=== PATIENT | male | born 1965 | race Caucasian/White ===

== ENCOUNTER 2020-06-16 14:22 | Outpatient (REF) | payer MEDICARE, MEDICAID, SELFPAY ==
[2020-06-16 17:02] LABS: Estimated Average Glucose 163 mg/dL; Hemoglobin A1c % 7.3 %
[2020-06-16 17:20] LABS: Prostate Specific Antigen Scr 0.65 ng/mL (<0.05-4.0)
== END 2020-06-16 14:23 | disposition home or self-care (01) ==
LOC: HO.HMGCLDS 14:22
PROVIDERS: PCP Nurse Practitioner Family; Visit Provider Nurse Practitioner Family
DX: Z12.5 Encounter for screening for malignant neoplasm of prostate (principal); E11.9 Type 2 diabetes mellitus without complications
CPT/HCPCS: 83036; 84153

== ENCOUNTER 2020-07-28 10:10 | Outpatient (REF) | payer MEDICARE, MEDICAID, SELFPAY ==
[2020-07-28 12:39] LABS: Free T4 (Free Thyroxine) 0.84 ng/dL (0.71-1.85)
[2020-07-29 18:37] LABS: Triiodothyronine T3 Total 82 ng/dL (76-181)
== END 2020-07-28 10:11 | disposition home or self-care (01) ==
LOC: HO.LAB 10:10
PROVIDERS: PCP Nurse Practitioner Family; Visit Provider Internal Medicine Endocrinology, Diabetes & Metabolism
DX: E05.00 Thyrotoxicosis with diffuse goiter without thyrotoxic crisis or storm (principal)
CPT/HCPCS: 84439; 84443; 84480

== ENCOUNTER → 2020-08-10 13:14 | Outpatient (BNVA) | payer MEDICARE, MEDICAID, SELFPAY | PROVIDERS: PCP Nurse Practitioner Family; Referring Provider Nurse Practitioner Family; Visit Provider Internal Medicine Endocrinology, Diabetes & Metabolism | DX: Z13.89 Encounter for screening for other disorder (principal) | CPT/HCPCS: Q3014 ==

== ENCOUNTER 2020-12-24 14:09 | Outpatient (REF) | payer MEDICARE, MEDICAID, SELFPAY ==
[2020-12-24 16:01] LABS: Alanine Aminotransferase 14 U/L (0-40); Alkaline Phosphatase 64 U/L (39-117); Anion Gap 11 (12-20); Aspartate Amino Transferase 11 U/L (5-37); Bilirubin Total 0.2 mg/dL (0.0-1.0); Blood Urea Nitrogen 15 mg/dL (9-16); Calcium 8.9 mg/dL (8.4-10.2); Carbon Dioxide 27 mmol/L (22-29); Chloride 103 mmol/L (96-108); Cholesterol 145 mg/dL; Estimated Glomerular Filt Rate > 60; Glucose Random 396 mg/dL (60-115); HDL Cholesterol 41 mg/dL; LDL Cholesterol Calculated 62 mg/dl; Potassium 5.2 mmol/L (3.3-5.1); Sodium 136 mmol/L (135-145); Total Protein 6.5 g/dL (6.5-8.0); Triglycerides 211 mg/dL
[2020-12-24 16:08] LABS: Creatinine Urine 29.13 mg/dL; Microalbumin Urine < 5.0 mg/L
[2020-12-24 16:18] LABS: Free T4 (Free Thyroxine) 0.82 ng/dL (0.71-1.85); Thyroid Stimulating Hormone 2.54 uIU/mL (0.32-4.0)
[2020-12-24 16:21] LABS: Vitamin B12 1005 pg/mL (200-900)
[2020-12-25 12:12] LABS: LDL Cholesterol Direct 71 mg/dL (<100)
[2020-12-25 15:51] LABS: Triiodothyronine T3 Total 78 ng/dL (76-181)
== END 2020-12-24 14:10 | disposition home or self-care (01) ==
LOC: HO.LAB 14:09
PROVIDERS: PCP Nurse Practitioner Family; Visit Provider Internal Medicine Endocrinology, Diabetes & Metabolism
DX: E05.00 Thyrotoxicosis with diffuse goiter without thyrotoxic crisis or storm (principal); E11.65 Type 2 diabetes mellitus with hyperglycemia; E11.42 Type 2 diabetes mellitus with diabetic polyneuropathy; E11.3299 Type 2 diabetes mellitus with mild nonproliferative diabetic retinopathy without macular edema, unspecified eye; E78.5 Hyperlipidemia, unspecified; I10 Essential (primary) hypertension; Z79.4 Long term (current) use of insulin; Z71.3 Dietary counseling and surveillance
CPT/HCPCS: 36415; 80053; 80061; 82043; 82607; 82947; 83721; 84439; 84443; 84480; 99212

== ENCOUNTER 2020-12-31 11:09 | Outpatient (REF) | payer MEDICARE, MEDICAID, SELFPAY ==
[2020-12-31 13:56] LABS: MANUAL DIFF FLAG NO
[2020-12-31 14:02] LABS: Basophils Percent Auto 0.4 % (0-2); Eosinophils Absolute Auto 0.2 X10*3/uL (0.0-0.4); Eosinophils Percent Auto 2.5 % (0-4); Hematocrit 44.6 % (42-52); Hemoglobin 14.4 g/dl (14.0-18.0); Imm Gran Abs Auto 0.02 X10*3/uL (0.00-0.03); Imm Gran Pct Auto 0.3 % (0.0-0.4); Lymphocytes Absolute Auto 1.7 X10*3/uL (1.2-4.9); Lymphocytes Percent Auto 24.9 % (20-40); Mean Corpuscular HGB Conc 32.3 g/dl (31.0-36.0); Mean Corpuscular Hemoglobin 31.2 pg (27.0-33.0); Mean Corpuscular Volume 96.5 fL (80-98); Mean Platelet Volume 10.1 fL (9.4-12.4); Monocytes Absolute Auto 0.5 X10*3/uL (0.1-1.2); Monocytes Percent Auto 7.8 % (2-11); Neutrophils Absolute Auto 4.4 X10*3/uL (2.0-8.3); Neutrophils Percent Auto 64.1 % (45-73); Platelet Count 240 X10*3/uL (160-400); Red Blood Count 4.62 X10*6/uL (4.60-5.80); Red Cell Distribution Width 12.9 % (11.0-16.0); White Blood Count 6.8 X10*3/uL (4.8-10.8)
[2020-12-31 14:28] LABS: Anion Gap 16 (12-20); Carbon Dioxide 24 mmol/L (22-29); Chloride 102 mmol/L (96-108); Potassium 4.8 mmol/L (3.3-5.1); Sodium 137 mmol/L (135-145)
[2020-12-31 14:29] LABS: Lithium 0.55 mmol/L (0.60-1.20)
[2020-12-31 14:32] LABS: Valproate 32.9 mcg/mL (50.0-100.0)
[2020-12-31 14:34] LABS: Anion Gap 15 (12-20); Blood Urea Nitrogen 13 mg/dL (9-16); Calcium 9.3 mg/dL (8.4-10.2); Carbon Dioxide 25 mmol/L (22-29); Chloride 102 mmol/L (96-108); Estimated Glomerular Filt Rate > 60; Glucose Random 173 mg/dL (60-115); Potassium 4.9 mmol/L (3.3-5.1); Sodium 137 mmol/L (135-145)
== END 2020-12-31 11:10 | disposition home or self-care (01) ==
LOC: HO.HMGCLDS 11:09
PROVIDERS: PCP Nurse Practitioner Family; Visit Provider Registered Nurse Psychiatric/Mental Health, Adult
DX: E11.65 Type 2 diabetes mellitus with hyperglycemia (principal); E87.5 Hyperkalemia; F31.63 Bipolar disorder, current episode mixed, severe, without psychotic features
CPT/HCPCS: 36415; 80048; 80051; 80164; 80178; 85025

== ENCOUNTER → 2021-01-18 14:11 | Outpatient (BNVA) | payer MEDICARE, MEDICAID, SELFPAY | PROVIDERS: PCP Nurse Practitioner Family; Visit Provider Internal Medicine Endocrinology, Diabetes & Metabolism | DX: E11.65 Type 2 diabetes mellitus with hyperglycemia (principal); E11.42 Type 2 diabetes mellitus with diabetic polyneuropathy; E11.3299 Type 2 diabetes mellitus with mild nonproliferative diabetic retinopathy without macular edema, unspecified eye; E05.00 Thyrotoxicosis with diffuse goiter without thyrotoxic crisis or storm; E78.5 Hyperlipidemia, unspecified; I10 Essential (primary) hypertension; Z79.4 Long term (current) use of insulin | CPT/HCPCS: Q3014 ==

== ENCOUNTER → 2021-02-22 13:26 | Outpatient (BNVA) | payer MEDICARE, MEDICAID, SELFPAY | PROVIDERS: PCP Nurse Practitioner Family; Visit Provider Dietitian, Registered | DX: E11.9 Type 2 diabetes mellitus without complications (principal) | CPT/HCPCS: 97802 ==

== ENCOUNTER 2021-07-16 06:08 | Outpatient (REF) | payer MEDICARE, MEDICAID, SELFPAY ==
[2021-07-16 11:43] LABS: Appearance Urine CLEAR; Color Urine YELLOW; Glucose Urine UA >=1000 MG/DL (NEG); Leukocyte Esterase Urine NEG (NEG); Nitrite Urine NEG (NEG); Specific Gravity - Urine 1.015 (1.005-1.025); Urine Blood NEG (NEG); Urine Ketones 15 MG/DL (NEG); Urine Protein NEG (NEG-TRACE)
[2021-07-16 12:14] LABS: Alanine Aminotransferase 8 U/L (0-40); Albumin Level 3.8 g/dL (3.5-5.0); Alkaline Phosphatase 58 U/L (39-117); Anion Gap 15 (12-20); Aspartate Amino Transferase 10 U/L (5-37); Bilirubin Total 0.5 mg/dL (0.0-1.0); Blood Urea Nitrogen 17 mg/dL (9-16); Calcium 9.3 mg/dL (8.4-10.2); Carbon Dioxide 26 mmol/L (22-29); Chloride 102 mmol/L (96-108); Cholesterol 121 mg/dL; Estimated Glomerular Filt Rate > 60; Glucose Fasting 77 mg/dL (60-99); HDL Cholesterol 37 mg/dL; LDL Cholesterol Calculated 67 mg/dl; Potassium 4.7 mmol/L (3.3-5.1); Sodium 138 mmol/L (135-145); Total Protein 6.3 g/dL (6.5-8.0); Triglycerides 89 mg/dL
[2021-07-16 12:39] LABS: TSH reflex Free T4 3.81 uIU/mL (0.32-4.0)
[2021-07-16 12:42] LABS: Prostate Specific Antigen Scr 0.77 ng/mL (<0.05-4.0)
[2021-07-16 13:07] LABS: WBC Urine 0-2 /HPF (0-4)
[2021-07-16 13:08] LABS: RBC Urine 0 /HPF (0)
== END 2021-07-16 06:09 | disposition home or self-care (01) ==
LOC: HO.HMGCLDS 06:08
PROVIDERS: PCP Nurse Practitioner Family; Visit Provider Nurse Practitioner Family
DX: Z00.00 Encounter for general adult medical examination without abnormal findings (principal); Z12.5 Encounter for screening for malignant neoplasm of prostate
CPT/HCPCS: 36415; 80053; 80061; 81001; 84153; 84443

== ENCOUNTER → 2021-08-19 14:20 | Outpatient (BNVA) | payer MEDICARE, MEDICAID, SELFPAY | PROVIDERS: PCP Nurse Practitioner Family; Visit Provider Internal Medicine | DX: E11.65 Type 2 diabetes mellitus with hyperglycemia (principal); E78.5 Hyperlipidemia, unspecified; I10 Essential (primary) hypertension; E05.00 Thyrotoxicosis with diffuse goiter without thyrotoxic crisis or storm; E55.9 Vitamin D deficiency, unspecified; R01.1 Cardiac murmur, unspecified; Z79.4 Long term (current) use of insulin | CPT/HCPCS: 82947; 83036; 99212 ==

== ENCOUNTER 2021-08-27 11:27 | Outpatient (REF) | payer MEDICARE, MEDICAID, SELFPAY ==
--- NOTE | ~2021-08-27 | US_ITS ---
EXAMINATION: US THYROID CLINICAL INFORMATION: Thyrotoxicosis, unspecified without thyrotoxic crisis or storm. COMPARISON: None TECHNIQUE: Linear transducer grayscale and color Doppler examination with attention to the region of the thyroid. FINDINGS: SIZE: Measurements of the thyroid lobes and nodules are given in sagittal, anteroposterior and transverse dimensions respectively. Right Thyroid Lobe: 6.83 x 3.19 x 2.74 cm, volume 31.2 mL. Parenchyma: The gland echotexture is homogeneous. Thyroid vascularity is normal. Left Thyroid Lobe: 6.69 x 3.18 x 3.22 cm, volume 35.9 mL. Parenchyma: The gland echotexture is heterogeneous. Thyroid vascularity is increased. Isthmus: 1.08 cm in maximum AP dimension. There are multiple thyroid nodules. The largest nodules are measured. Estimated total number of nodules greater than or equal to 1 cm: 2. Physician Pediatrician nodules are described as follows: 1. Location: Right mid. Size: 0.62 x 0.55 x 0.71 cm, volume 0.13 mL. Nodule characteristics: Composition: Solid (2). Echogenicity: Hypoechoic (2). Shape: Not taller than wide (0). Margins: Smooth (0). Echogenic Foci: None (0). ACR TI-RADS total points: 4 ACR TI-RADS category: 4 2. Location: Right mid. Size: 1.5 x 0.90 x 1.4 cm, volume 0.93 mL. Nodule characteristics: Composition: Solid (2). Echogenicity: Isoechoic (1). Shape: Not taller than wide (0). Margins: Smooth (0). Echogenic Foci: None (0). ACR TI-RADS total points: 3 ACR TI-RADS category: 3 3. Location: Left superior. Size: 1.3 x 0.90 x 1.2 cm, volume 0.80 mL. Nodule characteristics: Composition: Solid/almost completely solid (2). Echogenicity: Isoechoic (1). Shape: Not taller than wide (0). Margins: Smooth (0). Echogenic Foci: Punctate echogenic foci (3). ACR TI-RADS total points: 6 ACR TI-RADS category: 4 4. Location: Left superior. Size: 0.60 x 0.42 x 0.52 cm, volume 0.07 mL. Nodule characteristics: Composition: Spongiform (0). Echogenicity: Anechoic (0). Shape: Not taller than wide (0). Margins: Smooth (0). Echogenic Foci: None (0). ACR TI-RADS total points: 0 ACR TI-RADS category: 1 5. Location: Left mid. Size: 0.60 x 0.55 x 0.60 cm, volume 0.09 mL. Nodule characteristics: Composition: Cystic(0). ACR TI-RADS total points: 0 ACR TI-RADS category: 1 NODES: No lymphadenopathy is seen in the tissue surrounding the thyroid gland. US/US thyroid IMPRESSION: Enlarged heterogeneous hypervascular thyroid gland. Multiple bilateral thyroid nodules. Fine needle aspiration of the largest nodule in the upper left lobe recommended. ACR TI-RADS RECOMMENDATION REFERENCE: Ultrasound-guided fine-needle aspiration, followup ultrasound, no further follow up. * TR1 (0 point) and TR 2 (2 points): No FNA or follow up * TR3 (3 points): FNA if more than or equal to 2.5 cm in maximum dimension, followup ultrasound in 1, 3 and 5 years if 1.5 to 2.4 cm in maximum dimension. * TR4 (4-6 points): FNA if more than or equal to 1.5 cm in maximum dimension, followup ultrasound in 1, 2, 3 and 5 years if 1 to 1.4 cm in maximum dimension. * TR5 (more than or equal to 7 points): FNA if more than or equal to 1 cm in maximum dimension, followup ultrasound every year for 5 years if 0.5 to 0.9 cm in maximum dimension. * TR3, TR4 or TR5 nodules that are below the size threshold for follow up receive no follow up.
== END 2021-08-27 11:28 | disposition home or self-care (01) ==
LOC: HO.US 11:27
PROVIDERS: PCP Nurse Practitioner Family; Visit Provider Internal Medicine
DX: E05.00 Thyrotoxicosis with diffuse goiter without thyrotoxic crisis or storm (principal)
CPT/HCPCS: 76536

== ENCOUNTER 2021-09-01 09:59 | Outpatient (REF) | payer MEDICARE, MEDICAID, SELFPAY ==
[2021-09-01 11:50] LABS: Estimated Average Glucose 160 mg/dL; Hemoglobin A1c % 7.2 %
[2021-09-01 12:18] LABS: Alanine Aminotransferase 13 U/L (0-40); Albumin Level 3.8 g/dL (3.5-5.0); Alkaline Phosphatase 64 U/L (39-117); Anion Gap 11 (12-20); Aspartate Amino Transferase 10 U/L (5-37); Bilirubin Total 0.3 mg/dL (0.0-1.0); Blood Urea Nitrogen 9 mg/dL (9-16); Calcium 9.2 mg/dL (8.4-10.2); Carbon Dioxide 28 mmol/L (22-29); Chloride 102 mmol/L (96-108); Cholesterol 139 mg/dL; Estimated Glomerular Filt Rate > 60; Glucose Random 286 mg/dL (60-115); HDL Cholesterol 41 mg/dL; LDL Cholesterol Calculated 69 mg/dl; Phosphorus 2.9 mg/dL (2.7-4.5); Potassium 4.8 mmol/L (3.3-5.1); Sodium 136 mmol/L (135-145); Total Protein 6.4 g/dL (6.5-8.0); Triglycerides 147 mg/dL
[2021-09-01 12:20] LABS: Free T4 (Free Thyroxine) 0.82 ng/dL (0.71-1.85); Thyroid Stimulating Hormone 1.56 uIU/mL (0.32-4.0); Vitamin D 25-OH Total 31.9 ng/mL (>30)
[2021-09-02 07:32] LABS: Thyroid Peroxidase Antibodies 38 IU/mL (<9)
[2021-09-02 07:47] LABS: Triiodothyronine T3 Total 111 ng/dL (76-181)
[2021-09-02 09:51] LABS: Thyroglobulin Antibodies 9 IU/mL (< or = 1)
[2021-09-02 12:07] LABS: LDL Cholesterol Direct 78 mg/dL (<100)
[2021-09-02 14:16] LABS: Calcium (PTHI) 9.2 mg/dL (8.6-10.3); PTHI 32 pg/mL (14-64)
[2021-09-05 16:57] LABS: Thyrotropin Receptor Antibody <1.00 IU/L (<=2.00)
[2021-09-07 15:01] LABS: Thyroid Stimulating Immunoglob <89 % baseline (<140)
== END 2021-09-01 10:00 | disposition home or self-care (01) ==
LOC: HO.HMGCLDS 09:59
PROVIDERS: PCP Nurse Practitioner Family; Visit Provider Internal Medicine
DX: E05.00 Thyrotoxicosis with diffuse goiter without thyrotoxic crisis or storm (principal); E11.65 Type 2 diabetes mellitus with hyperglycemia; E55.9 Vitamin D deficiency, unspecified; Z79.4 Long term (current) use of insulin
CPT/HCPCS: 36415; 80053; 80061; 82306; 83036; 83520; 83721; 83970; 84100; 84439; 84443; 84445; 84480; 86376; 86800

== ENCOUNTER 2021-09-13 09:57 | Outpatient (REF) | payer MEDICARE, MEDICAID, SELFPAY ==
[2021-09-13 11:57] LABS: Albumin Level 4.1 g/dL (3.5-5.0)
[2021-09-13 12:03] LABS: Free T4 (Free Thyroxine) 0.78 ng/dL (0.71-1.85); Thyroid Stimulating Hormone 1.06 uIU/mL (0.32-4.0)
[2021-09-15 22:37] LABS: Triiodothyronine T3 Total 79 ng/dL (76-181)
== END 2021-09-13 09:58 | disposition home or self-care (01) ==
LOC: HO.LAB 09:57
PROVIDERS: PCP Nurse Practitioner Family; Visit Provider Internal Medicine
DX: E11.65 Type 2 diabetes mellitus with hyperglycemia (principal); E78.5 Hyperlipidemia, unspecified; E05.00 Thyrotoxicosis with diffuse goiter without thyrotoxic crisis or storm; E55.9 Vitamin D deficiency, unspecified; E04.2 Nontoxic multinodular goiter; I10 Essential (primary) hypertension; Z79.4 Long term (current) use of insulin
CPT/HCPCS: 36415; 82040; 84439; 84443; 84480; 99212

== ENCOUNTER → 2021-10-05 14:04 | Outpatient (BNVA) | payer MEDICARE, MEDICAID, SELFPAY | PROVIDERS: PCP Nurse Practitioner Family; Referring Provider Internal Medicine; Visit Provider Internal Medicine | DX: I35.8 Other nonrheumatic aortic valve disorders (principal); E11.8 Type 2 diabetes mellitus with unspecified complications; I10 Essential (primary) hypertension; E78.5 Hyperlipidemia, unspecified; F17.200 Nicotine dependence, unspecified, uncomplicated | CPT/HCPCS: 93005; 99202 ==

== ENCOUNTER → 2021-11-12 12:52 | Outpatient (REF) | payer MEDICARE, MEDICAID, SELFPAY ==
--- NOTE | 2021-11-12 12:55 | CA_ITS ---
Transthoracic Echocardiogram Patient (Last, First, Middle): Jovon Harmon, Gender: Male Date of : 1965 Age: 56 Procedure Date: 11/12/2021 Procedure Type: Transthoracic Echocardiogram Location: OP Height: 172.72 cm Weight: 99.79 kg BSA: 2.13 m2 Heart Rate: bpm BP: 120 / 80 mmHg [id number] Operator: CP/TO Referring MD: José Miguel Knott MD [employer]: Kennedy Mccauley MD Symptoms: I35.8 - Other nonrheumatic aortic valve disorders Study Quality: Fair ECG Rhythm: Sinus Conclusions: - 1. Normal LV systolic function with grade 1 diastolic dysfunction with mild asymmetric septal hypertrophy 2. Normal cardiac valvular Doppler 3. No gross pericardial effusion Findings Left Ventricle Normal left ventricular size, thickness, and systolic function. There is no dynamic left ventricular outflow tract obstruction. Spectral Doppler is indicative of an impaired relaxation filling pattern. E/E prime ratio is <8, consistent with normal filling pressures. Evidence suggests grade I (mild) diastolic dysfunction. There is mild septal asymmetric hypertrophy. Right Ventricle Normal right ventricular cavity size and systolic function. Atria Both atria are normal in size. There is lipomatous hypertrophy of the interatrial septum. There is no evidence of interatrial shunt. Aortic Valve Normal aortic valve structure and function. There is no aortic valve stenosis. There is no aortic valve regurgitation. Mitral Valve Normal mitral valve structure and function. There is trace mitral valve regurgitation. There is no mitral valve stenosis. Pulmonic Valve The pulmonic valve is likely normal. Tricuspid Valve Normal tricuspid valve structure. Tricuspid regurgitation envelope is inadequate for calculation of right ventricular systolic pressure. Great Vessels All visible segments of the aorta are normal in size. The pulmonary artery was not well visualized. Moderate plaque is seen in the sino tubular ridge. Venous The inferior vena cava is normal in size and collapses greater than 50% with inspiration. Pericardium/Pleural There is no evidence of pericardial effusion. Prior Study Comparison No significant change compared to prior study dated: 11/16/2017. Measurements 2D Linear Measurements IVSd: 1.44 0.6-0.9/0.6-1.0 cm LVIDd: 4.69 3.9-5.3/4.2-5.9 cm LVIDd Index: 2.20 2.4-3.2/2.2-3.1 cm/m2 LVIDs: 2.79 2.0-3.6 cm LVPWd: 1.02 0.7-1.1 cm LA Diam: 3.60 2.7-3.8/3.0-4.0 cm LAIDs Index: 1.69 1.5-2.3 cm/m2 LV Mass: 272.86 67-162/88-224 g LV Mass Index: 128.10 43-95/49-115 g/m2 LVOT Diam: 2.20 3.0+(-)1.3 cm 2D Systolic Function EF 4C: 62.00 >55% EF 2C: 64.20 >55% EF BiP: 61.40 >55% Mitral Valve MV Pk E: 0.91 MV PK A: 0.76 MV Decel Time: 189.00 E/A: 1.20 E'Lateral: 8.59 E'Medial: 5.44 E/E' Med: 16.80 E/E' Lat: 10.60 PHT: 55.00 MVA PHT: 4.00 Decel [place]: 4.81 Aortic Valve AoV Pk López: 1.59 AoV Mn López: 1.16 AoV VTI: 0.34 AoV Pk Grad: 10.00 Aov Mn Grad: 6.00 KUN Cont.VTI: 3.45 LVOT LVOT Pk López: 1.54 LVOT Mn López: 0.99 LVOT VTI: 0.30 LVOT Pk Grad: 9.00 LVOT Mn Grad: 5.00 LVOT Diam: 2.20 LVOT Area: 3.80 Diastolic Function MV Pk E: 0.91 MV Pk A: 0.76 E/A: 1.20 E'Medial: 5.44 E/E' Med: 16.80 E' Laterial: 8.59 E/E' Lat: 10.60 Right Ventricle TAPSE (mm): 24.40 TVS' López: 14.60 Tricuspid Valve RA Press: 3.00 Great Vessels Aorta Sinus of Valsalva: 3.91 2.0-3.[address] Ridge: 2.65 1.7-3.4 cm Ao Asc: 3.70 2.1-3.4 cm Ao Arch: 3.20 Updated in Other Vendor System with Status of Final Kennedy Mccauley MD electronically signed on 11/13/2021 12:40:21 PM with status of Final
== END ==
LOC: HO.CARD 12:52
PROVIDERS: PCP Nurse Practitioner Family; Visit Provider Internal Medicine
DX: I35.8 Other nonrheumatic aortic valve disorders (principal)
CPT/HCPCS: 93306

== ENCOUNTER → 2021-11-25 08:48 | Outpatient (REF) | payer MEDICARE, MEDICAID, SELFPAY ==
--- NOTE | 2021-11-25 08:52 | CA_ITS ---
Acquisition Time: 2021-11-25 09:03:09 Total Exercise Time: 00:07:21 Test Indications: MURMUR Medications: SEE H Protocol: JANEY Max HR: 101 BPM 61% of Pred: 163 BPM Max BP: 132/082 mmHG Max Work Load: 9.0 METS Exercise stress test using Janey protocol, Tolerated well, total of 7 min 21 sec. METS 9.00however MAPHR up to 61 %. Patient was getting fatigued, test ended will discuss with Dr. Knott about ordering Lexiscan stress test. Pt denies any anginal sx, No ischemic changes or no arrhythmias seen on EKG. Normotensive response to exercise Referred By: José Miguel Knott Overread By: Vannessa Lawrence NP
== END ==
LOC: HO.CARD 08:48
PROVIDERS: PCP Nurse Practitioner Family; Visit Provider Internal Medicine
DX: I25.10 Atherosclerotic heart disease of native coronary artery without angina pectoris (principal)
CPT/HCPCS: 93017

== ENCOUNTER → 2021-11-30 13:52 | Outpatient (BNVA) | payer MEDICARE, MEDICAID, SELFPAY | PROVIDERS: PCP Nurse Practitioner Family; Referring Provider Nurse Practitioner Family; Visit Provider Internal Medicine | DX: I10 Essential (primary) hypertension (principal); E11.8 Type 2 diabetes mellitus with unspecified complications; E78.5 Hyperlipidemia, unspecified; F17.210 Nicotine dependence, cigarettes, uncomplicated; Z79.84 Long term (current) use of oral hypoglycemic drugs; Z79.82 Long term (current) use of aspirin | CPT/HCPCS: 99212 ==

== ENCOUNTER 2022-03-17 10:57 | Outpatient (REF) | payer MEDICARE, MEDICAID, SELFPAY ==
--- NOTE | 2022-03-17 11:32 | PM.OP ---
Brief Operative Note Date of Service: 03/17/22 Pre-op diagnosis: Multinodular Thyroid Procedure: This is doctor Irma Horner. This is an ultrasound-guided fine-needle aspiration report. Date of Examination: Indication: Multinodular Thyroid Porcedure: Procedure was explained to the patient. Alternatives, the risk and benefits were discussed. Written consent was obtained. A time-out was also obtained. After sterile preparation, fine-needle aspiration of a left upper pole 1.3 cm thyroid nodule was performed using direct ultrasound guidance to confirm accurate needle placement. Four aspirations were made using 27 gauge needles. Samples were submitted for cytology. Our attention was then turned to the right lobe. Fine-needle aspiration of a right mid pole 1.5 cm thyroid nodule was performed using direct ultrasound guidance to confirm accurate needle placement. Four aspirations were made using 27 gauge needles. Samples were submitted for cytology. One pass was dedicated for [employer] [facility] administrative assistant testing. The patient tolerated the procedure well. Aftercare instructions were provided. Impression: Uncomplicated fine needle aspiration biopsy of a left upper pole 1.3 cm thyroid nodule and a right mid pole 1.5 cm thyroid nodule under ultrasound guidance. Surgeon: Irma Horner, DO Was an Hot Box Operator used for this Procedure?: No Estimated blood loss (mL): 0
== END 2022-03-17 10:58 | disposition home or self-care (01) ==
LOC: HO.US 10:57
PROVIDERS: Visit Provider Internal Medicine
DX: E04.2 Nontoxic multinodular goiter (principal)
CPT/HCPCS: 10005; 10006; 88172; 88173; 88177

== ENCOUNTER 2022-04-01 07:44 | Outpatient (REF) | payer MEDICARE, MEDICAID, SELFPAY ==
[2022-04-01 07:59] LABS: MANUAL DIFF FLAG NO
[2022-04-01 08:20] LABS: Basophils Percent Auto 0.4 % (0-2); Eosinophils Absolute Auto 0.2 X10*3/uL (0.0-0.4); Eosinophils Percent Auto 2.3 % (0-4); Hematocrit 47.8 % (42.0-52.0); Hemoglobin 15.5 g/dl (14.0-18.0); Imm Gran Abs Auto 0.02 X10*3/uL (0.00-0.03); Imm Gran Pct Auto 0.3 % (0.0-0.4); Lymphocytes Absolute Auto 1.7 X10*3/uL (1.2-4.9); Lymphocytes Percent Auto 21.6 % (20-40); Mean Corpuscular HGB Conc 32.4 g/dl (31.0-36.0); Mean Corpuscular Hemoglobin 30.9 pg (27.0-33.0); Mean Corpuscular Volume 95.2 fL (80.0-98.0); Monocytes Absolute Auto 0.7 X10*3/uL (0.1-1.2); Monocytes Percent Auto 9.2 % (2-11); Neutrophils Absolute Auto 5.1 x10*3/uL (2.0-8.3); Neutrophils Percent Auto 66.2 % (45-73); Platelet Count 268 X10*3/uL (160-400); Red Blood Count 5.02 X10*6/uL (4.60-5.80); Red Cell Distribution Width 12.8 % (11.0-16.0); White Blood Count 7.7 X10*3/uL (4.8-10.8)
[2022-04-01 08:20] LABS: Appearance Urine Clear; Color Urine Yellow; Glucose Urine UA >=1000 mg/dL (Negative); Leukocyte Esterase Urine Negative (Negative); Nitrite Urine Negative (Negative); Specific Gravity - Urine >= 1.030 (1.005-1.025); Urine Blood Negative (Negative); Urine Ketones Trace mg/dL (Negative); Urine Protein Negative (Neg-Trace)
[2022-04-01 08:27] LABS: Estimated Average Glucose 148 mg/dL; Hemoglobin A1c % 6.8 %
[2022-04-01 08:32] LABS: Bacteria Urine None Seen (None Seen); Hyaline Casts Urine 0-2 /LPF (0-2); RBC Urine 0-2 /HPF (0-2); Squamous Epithelial Cell Urine 0-2 /HPF (0-2); WBC Urine 0-5 /HPF (0-5)
[2022-04-01 08:42] LABS: Alanine Aminotransferase 11 U/L (0-40); Albumin Level 3.9 g/dL (3.5-5.0); Alkaline Phosphatase 59 U/L (39-117); Anion Gap 15 (12-20); Aspartate Amino Transferase 12 U/L (5-37); Bilirubin Total 0.5 mg/dL (0.0-1.0); Blood Urea Nitrogen 11 mg/dL (9-16); Carbon Dioxide 26 mmol/L (22-29); Chloride 104 mmol/L (96-108); Cholesterol 133 mg/dL; Estimated Glomerular Filt Rate > 60; Glucose Fasting 115 mg/dL (60-99); HDL Cholesterol 45 mg/dL; LDL Cholesterol Calculated 72 mg/dl; Potassium 4.9 mmol/L (3.3-5.1); Sodium 140 mmol/L (135-145); Total Protein 6.4 g/dL (6.5-8.0); Triglycerides 83 mg/dL
[2022-04-01 09:10] LABS: Creatinine Urine 71.53 mg/dL; Microalbumin Urine < 5.0 mg/L
[2022-04-01 09:12] LABS: Thyroid Stimulating Hormone 1.14 uIU/mL (0.32-4.0)
[2022-04-02 17:06] LABS: Triiodothyronine T3 Total 96 ng/dL (76-181)
== END 2022-04-01 07:45 | disposition home or self-care (01) ==
LOC: HO.LAB 07:44
PROVIDERS: Absent Provider Internal Medicine; PCP Nurse Practitioner Family; Visit Provider Nurse Practitioner Family
DX: E11.8 Type 2 diabetes mellitus with unspecified complications (principal); E05.00 Thyrotoxicosis with diffuse goiter without thyrotoxic crisis or storm
CPT/HCPCS: 36415; 80053; 80061; 81001; 82043; 83036; 84439; 84443; 84480; 85025

== ENCOUNTER → 2022-04-04 11:31 | Outpatient (BNVA) | payer MEDICARE, MEDICAID, SELFPAY | PROVIDERS: PCP Nurse Practitioner Family; Visit Provider Internal Medicine | DX: E04.2 Nontoxic multinodular goiter (principal); E11.65 Type 2 diabetes mellitus with hyperglycemia; E78.5 Hyperlipidemia, unspecified; E05.00 Thyrotoxicosis with diffuse goiter without thyrotoxic crisis or storm; E55.9 Vitamin D deficiency, unspecified; I10 Essential (primary) hypertension; Z79.4 Long term (current) use of insulin | CPT/HCPCS: 82947; 99212 ==

== ENCOUNTER 2022-04-22 14:45 | Outpatient (REF) | payer MEDICARE, MEDICAID, SELFPAY ==
--- NOTE | ~2022-04-22 | CT_ITS ---
EXAMINATION: CT CHEST SCREENING CLINICAL INFORMATION: Current smoker. 40 pack year history. COMPARISON: None. TECHNIQUE: Multidetector volumetric CT imaging of the chest is performed without contrast using low dose technique. Additional 2D coronal and sagittal reformatted images and axial 3D maximum intensity projection (MIP) images are generated on the CT workstation. This CT examination was performed using dose optimization techniques as appropriate, variously including the following: *Automated exposure control *Adjustment of mA and/or kV according to patient size (this includes techniques or standardized protocols for targeted exams where dose is matched to indication/reason for exam; i.e. extremities or head) *Use of iterative reconstruction technique DLP: 269 mGy-cm FINDINGS: LUNGS: There is a 4 mm peripheral or subpleural calcified right middle lobe nodule axial image 345 series 5. No emphysema interstitial lung disease or bronchiectasis. No endobronchial or endotracheal lesion. MEDIASTINUM: Prominent thyroid gland. No hilar or mediastinal lymphadenopathy. CORONARY ARTERY CALCIFICATION: Moderate to severe coronary artery calcification. Normal heart size. No pericardial effusion. PLEURA: There is no pleural effusion. No pleural mass or thickening. AXILLA: No lymphadenopathy. UPPER ABDOMEN: Unremarkable OSSEOUS STRUCTURES: Degenerative changes of the spine. CT/CT lung screening IMPRESSION: Small calcified right middle lobe nodule. Severe coronary artery calcification. Prominent thyroid gland. ASSESSMENT: Lung-RADS category 2: Benign RECOMMENDATION: Annual low-dose chest CT follow-up recommended.
== END 2022-04-22 14:46 | disposition home or self-care (01) ==
LOC: HO.CT 14:45
PROVIDERS: Visit Provider Physician Assistant Medical
DX: Z12.2 Encounter for screening for malignant neoplasm of respiratory organs (principal); F17.210 Nicotine dependence, cigarettes, uncomplicated
CPT/HCPCS: 71271; G0296

== ENCOUNTER 2022-05-30 10:22 | Outpatient (REF) | payer MEDICARE, MEDICAID, SELFPAY ==
--- NOTE | ~2022-05-30 | US_ITS ---
EXAMINATION: US EXTRACRANIAL CAROTID DUPLEX, BILATERAL CLINICAL INFORMATION: Atherosclerotic disease COMPARISON: None TECHNIQUE: Real-time ultrasound and Doppler techniques (integrating B-mode 2-D vascular images, Doppler spectral analysis and color-flow Doppler imaging) were utilized to interrogate the extracranial carotid arteries, the vertebral arteries and proximal subclavian arteries bilaterally. The degree of stenosis is determined by criteria similar to NASCET. FINDINGS: Right Side: 1. There is mild atherosclerotic plaque seen in the bifurcation/proximal ICA region. 2. The common carotid artery PSV proximally is 179 cm/s and distally 91 cm/s. 3. The proximal internal carotid artery velocities are 75 cm/s systolic and 16 cm/s diastolic. 4. The proximal external carotid artery PSV is 125 cm/s. 5. The vertebral artery shows antegrade flow. 6. The subclavian artery waveforms are normal. Left Side: 1. There is mild atherosclerotic plaque seen in the bifurcation/proximal ICA region. 2. The common carotid artery PSV proximally is 169 cm/s and distally 98 cm/s. 3. The proximal internal carotid artery velocities are 74 cm/s systolic and 18 cm/s diastolic. 4. The proximal external carotid artery PSV is 123 cm/s. 5. The vertebral artery shows antegrade flow. 6. The subclavian artery waveforms are normal. US/US carotid duplex BI IMPRESSION: 1. RIGHT: Minimal, non-hemodynamically significant stenosis of the proximal right internal carotid artery corresponding to a 0-49% stenosis by velocity criteria. 2. LEFT: Minimal, non-hemodynamically significant stenosis of the proximal left internal carotid artery corresponding to a 0-49% stenosis by velocity criteria.
== END 2022-05-30 10:23 | disposition home or self-care (01) ==
LOC: HO.US 10:22
PROVIDERS: Visit Provider Internal Medicine
DX: I65.23 Occlusion and stenosis of bilateral carotid arteries (principal); F17.200 Nicotine dependence, unspecified, uncomplicated
CPT/HCPCS: 93880

== ENCOUNTER 2022-06-20 07:56 | Outpatient (REF) | payer MEDICARE, MEDICAID, SELFPAY ==
[2022-06-20 11:50] LABS: Estimated Average Glucose 137 mg/dL; Hemoglobin A1c % 6.4 %
[2022-06-20 12:28] LABS: Erythrocyte Sedimentation Rate 1 MM/HR (0-15)
[2022-06-20 12:46] LABS: Lithium 0.57 mmol/L (0.60-1.20)
[2022-06-20 13:02] LABS: Valproate 41.5 mcg/mL (50.0-100.0)
[2022-06-20 14:25] LABS: Alanine Aminotransferase 12 U/L (0-40); Alkaline Phosphatase 69 U/L (39-117); Anion Gap 15 (12-20); Aspartate Amino Transferase 8 U/L (5-37); Bilirubin Total 0.4 mg/dL (0.0-1.0); Blood Urea Nitrogen 19 mg/dL (9-16); Calcium 9.8 mg/dL (8.4-10.2); Carbon Dioxide 24 mmol/L (22-29); Chloride 105 mmol/L (96-108); Estimated Glomerular Filt Rate > 60; Glucose Random 238 mg/dL (60-115); Potassium 5.3 mmol/L (3.3-5.1); Sodium 139 mmol/L (135-145); Total Protein 6.7 g/dL (6.5-8.0)
== END 2022-06-20 07:57 | disposition home or self-care (01) ==
LOC: HO.HMGCLDS 07:56
PROVIDERS: Internal Medicine; Absent Provider Internal Medicine; PCP Nurse Practitioner Family; Visit Provider Registered Nurse Psychiatric/Mental Health, Adult
DX: E11.8 Type 2 diabetes mellitus with unspecified complications (principal); F31.9 Bipolar disorder, unspecified; Z79.899 Other long term (current) drug therapy
CPT/HCPCS: 36415; 80053; 80164; 80178; 83036; 85652

== ENCOUNTER 2022-06-28 15:28 | Outpatient (REF) | payer MEDICARE, MEDICAID, SELFPAY | END 2022-06-28 15:29 | disposition home or self-care (01) | LOC: HO.HMGCLDS 15:28 | PROVIDERS: PCP Nurse Practitioner Family; Visit Provider Internal Medicine | DX: E11.65 Type 2 diabetes mellitus with hyperglycemia (principal); Z79.4 Long term (current) use of insulin | CPT/HCPCS: 36415; 84132 ==

== ENCOUNTER 2022-09-12 07:31 | Outpatient (REF) | payer MEDICARE, MEDICAID, SELFPAY ==
[2022-09-12 12:27] LABS: Prostate Specific Antigen Scr 0.72 ng/mL (<0.05-4.0)
== END 2022-09-12 07:32 | disposition home or self-care (01) ==
LOC: HO.HMGCLDS 07:31
PROVIDERS: PCP Nurse Practitioner Family; Visit Provider Nurse Practitioner Family
DX: Z12.5 Encounter for screening for malignant neoplasm of prostate (principal)
CPT/HCPCS: 36415; 84153

== ENCOUNTER 2022-10-24 15:30 | Emergency (ER) | payer MEDICARE, MEDICAID, SELFPAY ==
[2022-10-24 15:48] VITALS: BP 134/75; PULSE 58; RESP 17; TEMP 36.7; O2SAT 98; BMI 30.4
--- NOTE | 2022-10-24 15:52 | ED.GENADULT ---
HPI - General Adult General Chief complaint: General Medical Stated complaint: sent by / blood sugar Related Data Home Medications ?Medication ?Instructions ?Recorded ?Confirmed aspirin 81 mg tablet,delayed 81 mg PO DAILY 06/15/20 10/16/23 release (Adult Low Dose Aspirin) buspirone 5 mg tablet 5 mg PO BID 06/15/20 10/16/23 cholecalciferol (vitamin D3) 50 50 mcg PO DAILY 06/15/20 10/16/23 mcg (2,000 unit) capsule omega-3 fatty acids [Fish Oil 1 tab PO DAILY 06/15/20 10/16/23 Concentrate] lithium carbonate 300 mg capsule 300 mg PO DAILY 12/31/20 10/16/23 lithium carbonate 600 mg capsule 600 mg PO BEDTIME 03/17/22 10/16/23 quetiapine 400 mg tablet 400 mg PO BEDTIME 03/17/22 10/16/23 divalproex 500 mg tablet,extended 500 mg PO BID 09/01/22 10/16/23 release 24 hr Previous Rx's ?Medication ?Instructions ?Recorded gabapentin 800 mg tablet 800 mg PO TID 30 days #90 tabs 08/19/21 blood-glucose meter (FreeStyle #1 ea 11/10/22 Lite Meter kit) metformin 1,000 mg tablet 1,000 mg PO BID 90 days #180 tabs 11/24/22 blood sugar diagnostic (FreeStyle #100 ea 02/15/23 Lite Strips) doxycycline monohydrate 100 mg 100 mg PO BID 7 days #14 caps 10/14/23 capsule empagliflozin 25 mg tablet 25 mg PO QAM #90 tabs 10/23/23 (Jardiance) metoprolol tartrate 50 mg tablet 50 mg PO BID #180 tabs 10/23/23 Tresiba FlexTouch U-100 100 20 unit (0.2 mL) subcut DAILY #15 11/07/23 unit/mL (3 mL) subcutaneous pen mL (insulin degludec) atorvastatin 40 mg tablet 40 mg PO BEDTIME #90 tabs 11/07/23 pen needle, diabetic 32 gauge x #100 ea 11/20/23 (BD Margot 2nd Gen Pen Needle) semaglutide 2 mg/dose (8 mg/3 mL) 2 mg (0.75 mL) subcut QWEEK #3 mL 11/21/23 subcutaneous pen injector (Ozempic) lisinopril 2.5 mg tablet 2.5 mg PO DAILY 90 days #90 tabs 01/22/24 pioglitazone 30 mg tablet 30 mg PO DAILY #30 tabs 01/22/24 Allergies Allergy/AdvReac Type Severity Reaction Status Date / Time No Known Allergies Allergy Verified 11/21/23 15:05 [No Known Allergies*] [facility] Past Medical History Medical History Diabetic retinopathy Tubular adenoma of colon Hyperlipidemia Personal history of nicotine dependence CAD (coronary artery disease) Essential hypertension Multinodular thyroid Heart murmur Vitamin D deficiency T2DM (type 2 diabetes mellitus) 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 Maternal Grandmother Unknown family medical history Social History Social History Housing: House Alcohol intake: never Patient Tobacco Use Status: Current everyday Tobacco user Tobacco use type: Cigarette Cigarette Packs Per Day: 1 Cigarettes Per Day: 20.0 Years Smoked: (current smoker - onset 13yo, 1ppd x 43yrs, 40pyh) e-Cigarette/Vaping Use: Never Used Second Hand Smoke Exposure: No service: No Current occupational status: disabled Current occupational exposures/hazards: No Cognitive needs: No Hearing needs: No Vision needs: No Physical Exam ED Vital Signs: BMI result Body Mass Index 30.4 Course Course Course Narrative: This is an RME: Additional HPI, ROS, PE not included below will be deferred to primary provider. 49-year-old male history of type 2 diabetes, coronary artery disease, aortic stenosis, hyperlipidemia, hypertension presenting for evaluation of high blood sugar at doctor's office, greater than 500. Patient on Tresiba 10 units daily, tells me he is not compliant with checking his sugars at home however he has been taking his medications. He is also on metformin. Denies any medical complaints. Physical exam benign Plan labs. Medical Decision Making Lab Data 10/24/22 16:54 10/24/22 16:54 Labs: Lab Results 10/24/22 10/24/22 Range/Units 16:54 16:59 WBC 8.0 (4.8-10.8) X10*3/uL RBC 4.90 (4.60-5.80) X10*6/uL Hgb 15.8 (14.0-18.0) g/dl Hct 47.3 (42.0-52.0) % MCV 96.5 (80.0-98.0) fL MCH 32.2 (27.0-33.0) pg MCHC 33.4 (31.0-36.0) g/dl RDW 12.0 (11.0-16.0) % Plt Count 225 (160-400) X10*3/uL MPV 9.7 (9.4-12.4) fL Immature Gran % (Auto) 0.3 (0.0-0.4) % Neut % (Auto) 65.0 (45-73) % Lymph % (Auto) 24.8 (20-40) % [place] % (Auto) 8.5 (2-11) % Eos % (Auto) 1.1 (0-4) % Baso % (Auto) 0.3 (0-2) % Lymph # (Auto) 2.0 (1.2-4.9) X10*3/uL [place] # (Auto) 0.7 (0.1-1.2) X10*3/uL Eos # (Auto) 0.1 (0.0-0.4) X10*3/uL Baso # (Auto) 0.0 (0.0-0.2) X10*3/uL Abs Immat Gran (auto) 0.02 (0.00-0.03) X10*3/uL Absolute Neuts (auto) 5.2 (2.0-8.3) x10*3/uL Absolute Nucleated RBC 0.000 (0.0-0.012) X10*3/uL Nucleated RBC % (auto) 0.0 (0.0-0.2) /100WBC VBG pH 7.41 (7.32-7.43) VBG pCO2 36 mmHg VBG pO2 39 mmHg VBG HCO3 23 (22-26) mmol/L VBG O2 Saturation 71.0 % VBG Base Excess -0.9 mmol/L Sodium 134 L (135-145) mmol/L Potassium 4.7 (3.3-5.1) mmol/L Chloride 99 (96-108) mmol/L Carbon Dioxide 23 (22-29) mmol/L Anion Gap 17 (12-20) BUN 15 (9-16) mg/dL Creatinine 1.01 (0.5-1.4) mg/dL Estim Creat Clear Calc 87.1 Estimated GFR > 60 Random Glucose 368 H* (60-115) mg/dL Calcium 9.5 (8.4-10.2) mg/dL Total Bilirubin 0.5 (0.0-1.0) mg/dL AST 14 (5-37) U/L ALT 16 (0-40) U/L Alkaline Phosphatase 82 (39-117) U/L Total Protein 6.7 (6.5-8.0) g/dL Albumin 4.1 (3.5-5.0) g/dL Urine Color Yellow Urine Appearance Clear Urine pH 6.5 (5.0-9.0) Ur Specific [place] >= 1.030 H (1.005-1.025) Urine Protein Negative (Neg-Trace) mg/dL Urine Glucose (UA) >=1000 H (Negative) mg/dL Urine Ketones Negative (Negative) mg/dL Urine Blood Negative (Negative) Urine Nitrite Negative (Negative) Ur Leukocyte Esterase Negative (Negative) Urine RBC 0-2 (0-2) /HPF Urine WBC 0-5 (0-5) /HPF Ur Squamous Epith Cells 0-2 (0-2) /HPF Urine Bacteria None Seen (None Seen) Hyaline Casts 0-2 (0-2) /LPF Acetone, Qual Negative (Negative) Discharge Plan Discharge Clinical Impression: Eloped from emergency department Patient Disposition: Elopement Prescriptions: No Action (DME) blood-glucose meter [FreeStyle Lite Meter] Kit See Rx Instructions .Route Qty: 1 0RF Rx Instructions: As directed metformin 1,000 mg tablet 1,000 mg PO BID 90 Days Qty: 180 11RF (DME) FreeStyle Lite Strips Strip See Rx Instructions .ROUTE .MEDSUPPLY Qty: 100 11RF Rx Instructions: 3times a day metoprolol tartrate 50 mg tablet 50 mg PO BID Qty: 180 1RF Jardiance 25 mg tablet 25 mg PO QAM Qty: 90 4RF insulin degludec [Tresiba FlexTouch U-100] 100 unit/mL (3 mL) insulin pen 20 unit subcut DAILY Qty: 15 5RF atorvastatin 40 mg tablet 40 mg PO BEDTIME Qty: 90 3RF (DME) pen needle, diabetic [BD Margot 2nd Gen Pen Needle] 32 gauge x 5/32 needle See Rx Instructions .ROUTE .COMPLEX Qty: 100 0RF Dose Instruction: USE TO INJECT INSULIN DAILY DIRECTED Rx Instructions: USE TO INJECT INSULIN DAILY DIRECTED lisinopril 2.5 mg tablet 2.5 mg PO DAILY 90 Days Qty: 90 1RF pioglitazone 30 mg tablet 30 mg PO DAILY Qty: 30 5RF buspirone 5 mg tablet 5 mg PO BID omega-3 fatty acids 1 tab PO DAILY Rx Instructions: 1200 mg daily aspirin [Adult Low Dose Aspirin] 81 mg tablet,delayed release (DR/EC) 81 mg PO DAILY cholecalciferol (vitamin D3) 50 mcg (2,000 unit) capsule 50 mcg PO DAILY lithium carbonate 300 mg capsule 300 mg PO DAILY lithium carbonate 600 mg capsule 600 mg PO BEDTIME quetiapine 400 mg tablet 400 mg PO BEDTIME divalproex 500 mg tablet extended release 24 hr 500 mg PO BID doxycycline monohydrate 100 mg capsule 100 mg PO BID 7 Days Qty: 14 0RF gabapentin 800 mg tablet 800 mg PO TID 30 Days Qty: 90 6RF Ozempic 2 mg/dose (8 mg/3 mL) pen injector 2 mg subcut QWEEK Qty: 3 4RF Interventions: ED Discharge Assessment Last Done: 10/24/22 19:15 Discharge Date/Time: 10/24/22 19:16 Print Language: Citizen Of [place]
[2022-10-24 17:01] LABS: MANUAL DIFF FLAG NO
[2022-10-24 17:04] LABS: Basophils Percent Auto 0.3 % (0-2); Eosinophils Absolute Auto 0.1 X10*3/uL (0.0-0.4); Eosinophils Percent Auto 1.1 % (0-4); Hematocrit 47.3 % (42.0-52.0); Hemoglobin 15.8 g/dl (14.0-18.0); Imm Gran Abs Auto 0.02 X10*3/uL (0.00-0.03); Imm Gran Pct Auto 0.3 % (0.0-0.4); Lymphocytes Percent Auto 24.8 % (20-40); Mean Corpuscular HGB Conc 33.4 g/dl (31.0-36.0); Mean Corpuscular Hemoglobin 32.2 pg (27.0-33.0); Mean Corpuscular Volume 96.5 fL (80.0-98.0); Mean Platelet Volume 9.7 fL (9.4-12.4); Monocytes Absolute Auto 0.7 X10*3/uL (0.1-1.2); Monocytes Percent Auto 8.5 % (2-11); Neutrophils Absolute Auto 5.2 x10*3/uL (2.0-8.3); Platelet Count 225 X10*3/uL (160-400)
[2022-10-24 17:05] LABS: Appearance Urine Clear; Color Urine Yellow; Glucose Urine UA >=1000 mg/dL (Negative); Leukocyte Esterase Urine Negative (Negative); Nitrite Urine Negative (Negative); PH 6.5 (5.0-9.0); Specific Gravity - Urine >= 1.030 (1.005-1.025); UMIC TRIGGER UACC YES; Urine Blood Negative (Negative); Urine Ketones Negative (Negative); Urine Protein Negative (Neg-Trace)
[2022-10-24 17:16] LABS: Bacteria Urine None Seen (None Seen); Hyaline Casts Urine 0-2 /LPF (0-2); RBC Urine 0-2 /HPF (0-2); Squamous Epithelial Cell Urine 0-2 /HPF (0-2); WBC Urine 0-5 /HPF (0-5)
[2022-10-24 17:24] LABS: Alanine Aminotransferase 16 U/L (0-40); Albumin Level 4.1 g/dL (3.5-5.0); Alkaline Phosphatase 82 U/L (39-117); Anion Gap 17 (12-20); Aspartate Amino Transferase 14 U/L (5-37); Bilirubin Total 0.5 mg/dL (0.0-1.0); Blood Urea Nitrogen 15 mg/dL (9-16); Calcium 9.5 mg/dL (8.4-10.2); Carbon Dioxide 23 mmol/L (22-29); Chloride 99 mmol/L (96-108); Creatinine Clr Calc Pharmacy 87.1; Estimated Glomerular Filt Rate > 60; Glucose Random 368 mg/dL (60-115); Potassium 4.7 mmol/L (3.3-5.1); Sodium 134 mmol/L (135-145); Total Protein 6.7 g/dL (6.5-8.0)
[2022-10-24 17:38] LABS: Venous Blood Gas Refer to POC result
[2022-10-24 17:38] LABS: VBG Base Excess -0.9 mmol/L; VBG HCO3 23 mmol/L (22-26); VBG pCO2 36 mmHg; VBG pH 7.41 (7.32-7.43); VBG pO2 39 mmHg
[2022-10-24 17:46] LABS: Acetone, serum QL Negative (Negative)
== END 2022-10-24 19:16 | disposition left against medical advice (07) ==
PROVIDERS: Physician Assistant; Emergency Provider Emergency Medicine; PCP Nurse Practitioner Family
DX: E11.65 Type 2 diabetes mellitus with hyperglycemia (principal); Z79.4 Long term (current) use of insulin; I10 Essential (primary) hypertension; I25.10 Atherosclerotic heart disease of native coronary artery without angina pectoris; E78.5 Hyperlipidemia, unspecified
CPT/HCPCS: 36415; 80053; 81001; 81003; 82009; 82803; 82947; 83036; 85025; 99212; 99282; 99283

== ENCOUNTER 2022-11-01 09:33 | Outpatient (REF) | payer MEDICARE, MEDICAID, SELFPAY ==
[2022-11-01 12:36] LABS: Anion Gap 11 (12-20); Blood Urea Nitrogen 11 mg/dL (9-16); Calcium 9.4 mg/dL (8.4-10.2); Carbon Dioxide 30 mmol/L (22-29); Chloride 103 mmol/L (96-108); Estimated Glomerular Filt Rate > 60; Glucose Random 188 mg/dL (60-115); Potassium 5.5 mmol/L (3.3-5.1); Sodium 138 mmol/L (135-145)
[2022-11-01 13:04] LABS: Lithium 0.98 mmol/L (0.60-1.20)
== END 2022-11-01 09:34 | disposition home or self-care (01) ==
LOC: HO.HMGCLDS 09:33
PROVIDERS: Visit Provider Registered Nurse Psychiatric/Mental Health, Adult
DX: F31.9 Bipolar disorder, unspecified (principal)
CPT/HCPCS: 36415; 80048; 80178

== ENCOUNTER 2022-11-03 07:45 | Outpatient (REF) | payer MEDICARE, MEDICAID, SELFPAY ==
[2022-11-03 12:06] LABS: Creatinine Urine 86.13 mg/dL; Microalbum/Creatinine Ratio Ur 6.9 ug/mg cr
[2022-11-03 12:26] LABS: Alanine Aminotransferase 9 U/L (0-40); Albumin Level 3.7 g/dL (3.5-5.0); Alkaline Phosphatase 62 U/L (39-117); Anion Gap 12 (12-20); Aspartate Amino Transferase 10 U/L (5-37); Bilirubin Total 0.5 mg/dL (0.0-1.0); Blood Urea Nitrogen 13 mg/dL (9-16); Carbon Dioxide 27 mmol/L (22-29); Chloride 108 mmol/L (96-108); Cholesterol 138 mg/dL; Estimated Glomerular Filt Rate > 60; Glucose Random 86 mg/dL (60-115); HDL Cholesterol 42 mg/dL; LDL Cholesterol Calculated 78 mg/dl; Potassium 4.8 mmol/L (3.3-5.1); Sodium 142 mmol/L (135-145); Total Protein 5.9 g/dL (6.5-8.0); Triglycerides 92 mg/dL
[2022-11-03 12:35] LABS: Free T4 (Free Thyroxine) 0.79 ng/dL (0.71-1.85); Insulin 27 uU/mL (2-29); Thyroid Stimulating Hormone 0.87 uIU/mL (0.32-4.0)
[2022-11-04 16:48] LABS: LDL Cholesterol Direct 75 mg/dL (<100)
[2022-11-04 17:53] LABS: C Peptide 0.28 ng/mL (0.80-3.85)
[2022-11-09 14:03] LABS: Glutamic acid decarboxylase Ab <5 IU/mL (<5)
[2022-11-10 19:59] LABS: Insulinoma associated 2 aatb <5.4 U/mL (<5.4)
[2022-11-21 01:03] LABS: Islet Cell Antibody Screen NEGATIVE (NEGATIVE)
== END 2022-11-03 07:46 | disposition home or self-care (01) ==
LOC: HO.HMGCLDS 07:45
PROVIDERS: PCP Nurse Practitioner Family; Visit Provider Internal Medicine
DX: E11.65 Type 2 diabetes mellitus with hyperglycemia (principal); E05.00 Thyrotoxicosis with diffuse goiter without thyrotoxic crisis or storm; E04.2 Nontoxic multinodular goiter; Z79.4 Long term (current) use of insulin
CPT/HCPCS: 36415; 80053; 80061; 82043; 83525; 83721; 84439; 84443; 84681; 86255; 86341

== ENCOUNTER → 2022-11-29 13:49 | Outpatient (BNVA) | payer MEDICARE, MEDICAID, SELFPAY | PROVIDERS: PCP Nurse Practitioner Family; Referring Provider Nurse Practitioner Family; Visit Provider Internal Medicine | DX: I25.10 Atherosclerotic heart disease of native coronary artery without angina pectoris (principal); I10 Essential (primary) hypertension; E11.8 Type 2 diabetes mellitus with unspecified complications; E78.5 Hyperlipidemia, unspecified; F17.210 Nicotine dependence, cigarettes, uncomplicated | CPT/HCPCS: 93005; 99212 ==

== ENCOUNTER 2022-12-20 09:12 | Outpatient (REF) | payer MEDICARE, MEDICAID, SELFPAY ==
[2022-12-20 11:45] LABS: Anion Gap 9 (12-20); Blood Urea Nitrogen 11 mg/dL (9-16); Calcium 9.1 mg/dL (8.4-10.2); Carbon Dioxide 31 mmol/L (22-29); Chloride 101 mmol/L (96-108); Estimated Glomerular Filt Rate > 60; Glucose Random 225 mg/dL (60-115); Potassium 4.7 mmol/L (3.3-5.1); Sodium 136 mmol/L (135-145)
== END 2022-12-20 09:13 | disposition home or self-care (01) ==
LOC: HO.HMGCLDS 09:12
PROVIDERS: PCP Nurse Practitioner Family; Visit Provider Internal Medicine
DX: I25.10 Atherosclerotic heart disease of native coronary artery without angina pectoris (principal)
CPT/HCPCS: 36415; 80048

== ENCOUNTER 2023-01-31 09:12 | Outpatient (REF) | payer MEDICARE, MEDICAID, SELFPAY ==
[2023-01-31 11:29] LABS: MANUAL DIFF FLAG NO
[2023-01-31 11:35] LABS: Appearance Urine Clear; Color Urine Yellow; Glucose Urine UA >=1000 mg/dL (Negative); Leukocyte Esterase Urine Negative (Negative); Nitrite Urine Negative (Negative); Specific Gravity - Urine >= 1.030 (1.005-1.025); UMIC TRIGGER UACC YES; Urine Blood Negative (Negative); Urine Ketones Negative (Negative); Urine Protein Negative (Neg-Trace)
[2023-01-31 11:39] LABS: Basophils Percent Auto 0.3 % (0-2); Eosinophils Percent Auto 0.5 % (0-4); Hematocrit 45.5 % (42.0-52.0); Hemoglobin 14.9 g/dl (14.0-18.0); Imm Gran Abs Auto 0.02 X10*3/uL (0.00-0.03); Imm Gran Pct Auto 0.3 % (0.0-0.4); Lymphocytes Absolute Auto 1.4 X10*3/uL (1.2-4.9); Lymphocytes Percent Auto 19.2 % (20-40); Mean Corpuscular HGB Conc 32.7 g/dl (31.0-36.0); Mean Corpuscular Hemoglobin 32.5 pg (27.0-33.0); Mean Corpuscular Volume 99.3 fL (80.0-98.0); Mean Platelet Volume 9.8 fL (9.4-12.4); Monocytes Absolute Auto 0.6 X10*3/uL (0.1-1.2); Neutrophils Absolute Auto 5.3 x10*3/uL (2.0-8.3); Neutrophils Percent Auto 71.7 % (45-73); Platelet Count 250 X10*3/uL (160-400); Red Blood Count 4.58 X10*6/uL (4.60-5.80); Red Cell Distribution Width 12.8 % (11.0-16.0); White Blood Count 7.4 X10*3/uL (4.8-10.8)
[2023-01-31 11:42] LABS: Estimated Average Glucose 123 mg/dL; Hemoglobin A1c % 5.9 %
[2023-01-31 12:05] LABS: Alanine Aminotransferase 12 U/L (0-40); Albumin Level 3.7 g/dL (3.5-5.0); Alkaline Phosphatase 56 U/L (39-117); Anion Gap 11 (12-20); Aspartate Amino Transferase 11 U/L (5-37); Bilirubin Total 0.4 mg/dL (0.0-1.0); Blood Urea Nitrogen 16 mg/dL (9-16); Calcium 9.2 mg/dL (8.4-10.2); Carbon Dioxide 27 mmol/L (22-29); Chloride 102 mmol/L (96-108); Estimated Glomerular Filt Rate > 60; Glucose Random 239 mg/dL (60-115); Potassium 4.3 mmol/L (3.3-5.1); Sodium 136 mmol/L (135-145); Total Protein 6.4 g/dL (6.5-8.0)
[2023-01-31 12:07] LABS: Bacteria Urine None Seen (None Seen); Hyaline Casts Urine 0-2 /LPF (0-2); RBC Urine 0-2 /HPF (0-2); Squamous Epithelial Cell Urine 0-2 /HPF (0-2); WBC Urine 0-5 /HPF (0-5)
== END 2023-01-31 09:13 | disposition home or self-care (01) ==
LOC: HO.HMGCLDS 09:12
PROVIDERS: PCP Nurse Practitioner Family; Visit Provider Nurse Practitioner Family
DX: E11.9 Type 2 diabetes mellitus without complications (principal)
CPT/HCPCS: 36415; 80053; 81001; 83036; 85025

== ENCOUNTER → 2023-02-01 09:14 | Outpatient (BNVA) | payer MEDICARE, MEDICAID, SELFPAY | PROVIDERS: PCP Nurse Practitioner Family; Visit Provider Internal Medicine | DX: E04.2 Nontoxic multinodular goiter (principal); E05.00 Thyrotoxicosis with diffuse goiter without thyrotoxic crisis or storm; E11.65 Type 2 diabetes mellitus with hyperglycemia; E11.42 Type 2 diabetes mellitus with diabetic polyneuropathy; E11.3299 Type 2 diabetes mellitus with mild nonproliferative diabetic retinopathy without macular edema, unspecified eye; I10 Essential (primary) hypertension; E55.9 Vitamin D deficiency, unspecified; Z79.4 Long term (current) use of insulin; Z79.899 Other long term (current) drug therapy | CPT/HCPCS: Q3014 ==

== ENCOUNTER 2023-02-06 13:52 | Outpatient (REF) | payer MEDICARE, MEDICAID, SELFPAY | END 2023-02-06 13:53 | disposition home or self-care (01) | LOC: HO.HMGCX 13:52 | PROVIDERS: PCP Nurse Practitioner Family; Visit Provider Internal Medicine | DX: E04.2 Nontoxic multinodular goiter (principal) | CPT/HCPCS: 76536 ==

== ENCOUNTER 2023-04-03 08:12 | Day surgery (SDC) | payer MEDICARE, MEDICAID, SELFPAY ==
--- NOTE | 2023-03-31 10:20 | HO.ANESPROP2 ---
Documented by User: Brenda Burgess NP 03/31/23 10:22 HPI - Anesthesia Eval Consult details Narrative: 57yo M for Colonoscopy PMF Active Problems Active Problems: All Active Problems (Updated 12/22/22 @ 17:45 by Dagoberto Mathew, [facility]) Pre-op evaluation (Acute) Physical exam (Acute) Screening PSA (prostate specific antigen) (Acute) Screening for colon cancer (Acute) Loud snoring (Acute) Nicotine dependence, cigarettes, uncomplicated (Acute) CAD (coronary artery disease) (Acute) Atherosclerotic cardiovascular disease (Acute) Aortic valve sclerosis (Acute) Heart murmur (Acute) Essential hypertension (Acute) Hyperlipidemia (Acute) T2DM (type 2 diabetes mellitus) (Acute) Diabetic polyneuropathy associated with type 2 diabetes mellitus (Acute) Mild non proliferative diabetic retinopathy (Acute) 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 (Acute) Graves' disease with exophthalmos (Acute) Multinodular thyroid (Acute) Personal history of nicotine dependence (Acute) Wound of foot (Acute) Vitamin D deficiency (Acute) Hyperkalemia (Acute) Tubular adenoma of colon (Acute) Past Medical History Medical History CAD (coronary artery disease) Diabetic polyneuropathy associated with type 2 diabetes mellitus Essential hypertension Graves' disease with exophthalmos Heart murmur Hyperlipidemia 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 Maternal Grandmother Unknown family medical history Surgical History Surgical History History of colonoscopy Social History Social History Housing: House Alcohol intake: never Patient Tobacco Use Status: Current everyday Tobacco user Tobacco use type: Cigarette Cigarette Packs Per Day: 1 Cigarettes Per Day: 20.0 Years Smoked: (current smoker - onset 13yo, 1ppd x 43yrs, 40pyh) e-Cigarette/Vaping Use: Never Used Second Hand Smoke Exposure: No Use of substances other than those prescribed or required for medical reasons: No Are you DNR?: No Advance Directives: No Advance Directives Information Provided: Yes service: No Current occupational status: disabled Current occupational exposures/hazards: No Cognitive needs: No Hearing needs: No Vision needs: No Meds Allergies Allergy/AdvReac Type Severity Reaction Status Date / Time No Known Allergies Allergy Verified 02/01/23 11:22 [No Known Allergies*] Home Medications Medication Instructions Recorded Confirmed Last Taken Type aspirin 81 mg tablet,delayed 81 mg PO DAILY 06/15/20 04/03/23 Unknown History release (Adult Low Dose Aspirin) buspirone 5 mg tablet 5 mg PO BID 06/15/20 04/03/23 Unknown History cholecalciferol (vitamin D3) 50 50 mcg PO DAILY 06/15/20 04/03/23 Unknown History mcg (2,000 unit) capsule omega-3 fatty acids [Fish Oil 1 tab PO DAILY 06/15/20 04/03/23 Unknown History Concentrate] lithium carbonate 300 mg capsule 300 mg PO DAILY 12/31/20 04/03/23 Unknown History lithium carbonate 600 mg capsule 600 mg PO BEDTIME 03/17/22 04/03/23 Unknown History quetiapine 400 mg tablet 400 mg PO BEDTIME 03/17/22 04/03/23 Unknown History divalproex 500 mg tablet,extended 500 mg PO BID 09/01/22 04/03/23 Unknown History release 24 hr pioglitazone 30 mg tablet 30 mg PO DAILY 11/29/22 04/03/23 Unknown History Exam Exam Date and Time: March 31, 2023 1020 Pertinent Lab Results Pertinent Lab Results: Laboratory Tests 01/31/23 01/31/23 09:20 09:20 WBC 7.4 Hgb 14.9 Hct 45.5 Plt Count 250 Sodium 136 Potassium 4.3 Chloride 102 Carbon Dioxide 27 BUN 16 Creatinine 0.78 Narrative Narrative: EKG 11/2022 sinus rhythm at 62/Min; nonspecific interventricular conduction delay; normal TN/corrected QT. Exercise Stress 2021 Protocol: CRISPIN ? Max HR: 101 BPM? 61% of? Pred: 163 BPM Max BP: 132/082 mmHG Max Work Load: 9.0 METS ? Exercise stress test using Crispin protocol, Tolerated well, total of 7 min 21 ?sec.? METS 9.00however? MAPHR up to 61 %.? Patient was getting fatigued, test ?ended will discuss with Dr. Knott about ordering Lexiscan stress test. ?Pt denies any anginal sx, No ischemic changes or no arrhythmias seen on EKG. ?Normotensive response to exercise ECHO 2021 Conclusions: -? 1. Normal LV systolic function with grade 1 diastolic ? dysfunction with mild asymmetric septal hypertrophy? 2.? Normal cardiac valvular Doppler? 3. No? gross pericardial effusion? ? ? 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 Maternal Grandmother Unknown family medical history Family history of problems with anesthesia: No Surgical History Surgical History History of colonoscopy History of Problems with Anesthesia: No Social History Social History Housing: House Alcohol intake: never Patient Tobacco Use Status: Current everyday Tobacco user Tobacco use type: Cigarette Cigarette Packs Per Day: 1 Cigarettes Per Day: 20.0 Years Smoked: (current smoker - onset 13yo, 1ppd x 43yrs, 40pyh) e-Cigarette/Vaping Use: Never Used Second Hand Smoke Exposure: No Use of substances other than those prescribed or required for medical reasons: No Are you DNR?: No Advance Directives: No Advance Directives Information Provided: Yes service: No Current occupational status: disabled Current occupational exposures/hazards: No Cognitive needs: No Hearing needs: No Vision needs: No Meds Allergies Allergy/AdvReac Type Severity Reaction Status Date / Time No Known Allergies Allergy Verified 02/01/23 11:22 [No Known Allergies*] Home Medications Medication Instructions Recorded Confirmed Last Taken Type aspirin 81 mg tablet,delayed 81 mg PO DAILY 06/15/20 04/03/23 Unknown History release (Adult Low Dose Aspirin) buspirone 5 mg tablet 5 mg PO BID 06/15/20 04/03/23 Unknown History cholecalciferol (vitamin D3) 50 50 mcg PO DAILY 06/15/20 04/03/23 Unknown History mcg (2,000 unit) capsule omega-3 fatty acids [Fish Oil 1 tab PO DAILY 06/15/20 04/03/23 Unknown History Concentrate] lithium carbonate 300 mg capsule 300 mg PO DAILY 12/31/20 04/03/23 Unknown History lithium carbonate 600 mg capsule 600 mg PO BEDTIME 03/17/22 04/03/23 Unknown History quetiapine 400 mg tablet 400 mg PO BEDTIME 03/17/22 04/03/23 Unknown History divalproex 500 mg tablet,extended 500 mg PO BID 09/01/22 04/03/23 Unknown History release 24 hr pioglitazone 30 mg tablet 30 mg PO DAILY 11/29/22 04/03/23 Unknown History Exam Airway Mallampati Class: III Loose/Missing/Broken Teeth: Yes Assessment and Plan Assessment Anesthesia Assessment: Anesthesia Plan Discussed Final Anesthetic Review Family History of Problems with Anesthesia: No History of Problems with Anesthesia: No NPO: Yes ASA Class: III Final Preanesthetic Review: Meds/Allgs Chart Reviewed, Consent Obtained/Reviewed and Anes Risks/Benef Reviewed Patient Risk: Intermediate Procedure Risk: Intermediate Anesthetic Plan Anesthetic Plan: MAC: Disposition: Standard PACU
[2023-04-03 09:05] VITALS: BP 148/85; PULSE 73; RESP 18; TEMP 36.1; O2SAT 99; BMI 30.4
[2023-04-03] MEDS: Sodium Phosphate,Mono-Dibasic 133 ML ENEMA PR ×2 (09:24→09:31)
[2023-04-03 09:25] LABS: Glucose, Whole Blood 158 mg/dL (60-115)
[2023-04-03] MEDS: Lactated Ringers 1,000 ML 100 ML IVCONT (10:06)
[2023-04-03 10:55] VITALS: BP 133/48; PULSE 76; RESP 16; TEMP 36.1; O2SAT 98
--- NOTE | 2023-04-03 11:00 | PM.OP ---
Brief Operative Note Date of Service: 04/03/23 Pre-op diagnosis: Screening Post-op diagnosis: other (Diverticulosis) Procedure: Colonoscopy to the Hepatic Flexure/ Distal ascending colon, limited by poor prep Surgeon: Reyes Avery Anesthesia: MAC Was an Live Hanger used for this Procedure?: No Estimated blood loss (mL): 0 Pathology: none sent Condition: stable Disposition: PACU
[2023-04-03 11:10] VITALS: BP 156/77; PULSE 74; RESP 16; TEMP 36.1; O2SAT 99
--- NOTE | 2023-04-03 21:39 | OP_ITS ---
DATE OF SERVICE: 04/03/2023 SURGEON: Reyes Avery MD INDICATIONS: The patient presents for followup of personal history of tubular adenoma of the colon and colorectal cancer screening. Full consent was obtained from him for this, including risks of bleeding and perforation. PREOPERATIVE DIAGNOSIS: Colorectal cancer screening and personal history of tubular adenoma of the colon. POSTOPERATIVE DIAGNOSIS: Colorectal cancer screening and personal history of tubular adenoma of the colon, exam limited by poor prep, diverticulosis, internal hemorrhoids. PROCEDURE PERFORMED: Colonoscopy to the region of the ascending colon. ESTIMATED BLOOD LOSS: COMPLICATIONS: ANESTHESIA: Medication used; monitored anesthesia care. ASSISTANTS: SPECIMENS: DESCRIPTION OF PROCEDURE: The patient was placed in the left lateral decubitus position. The digital rectal exam revealed no abnormalities. The Olympus video-pediatric colonoscope was entered into the rectum and advanced to the region of what appeared to be the hepatic flexure and ascending colon. However, advancement was not possible beyond this due to retained liquid stool and some undigested food. The scope was slowly withdrawn assessing all mucosal surfaces carefully, but again the prep was limited throughout various parts of the colon. I did not visualize any sign of polyps, colitis, nor angiodysplasias, although again visualization was obviously limited. There was a mild amount of sigmoid diverticulosis. In the rectum, scope was retroflexed visualizing internal hemorrhoids, but no other pathology. The rectal mucosa appeared normal. The scope was straightened and withdrawn from the patient. He tolerated the procedure well and was returned to recovery area in stable condition. IMPRESSION: 1. Limited colonoscopy due to poor prep. 2. Diverticulosis. 3. Internal hemorrhoids. PLAN: The patient has had a colonoscopy in 2014 and 2019, as well as today's exam. His 2015 colonoscopy had a small tubular adenoma. The exam in 2019 was negative, but the prep was limited, but I was able to reach the cecum. Given today's limited and incomplete colonoscopy, I would recommend he obtain a Cologuard test from his primary care provider and assuming that is negative, I would then repeat a colonoscopy in 3 years for followup. He does report that he was compliant with a 2-day bowel prep, although he does say he had some breakfast on both days, so I am not sure if the eating obviously contributed to the poor prep. He was advised to resume his aspirin and fish oil today. MD KAVON Simon/SARA / [id number] [email or web address]
--- NOTE | 2023-04-04 14:39 | OP_ITS ---
DATE OF SERVICE: 04/03/2023 SURGEON: Reyes Avery MD PREOPERATIVE DIAGNOSIS: POSTOPERATIVE DIAGNOSIS: PROCEDURE PERFORMED: ESTIMATED BLOOD LOSS: COMPLICATIONS: ANESTHESIA: ASSISTANTS: SPECIMENS: ADDENDUM: To a GI procedure. In discussing things with the patient after the procedure, he describes actually that the prep he did was not as per our instructions. He was supposed to have done MiraLAX and Dulcolax 2 days before and then again repeat that the day before. He was also supposed to be on a full liquid diet 2 days before and then a clear liquid diet the day before. In discussing with the patient, the patient describes that he did not do any MiraLAX 2 days before and just did the regular prep yesterday. He also was on a full liquid diet yesterday including cream soup and scrambled eggs. He obviously misunderstood our instructions. We will still proceed with the same plan of him doing a Cologuard test from his primary care provider and if negative, we would repeat a colonoscopy in 2 to 3 years. If the Cologuard test is positive, we would then proceed with a colonoscopy this year with hopefully a better clean-out if need be. He has been given written instructions in this regard. MD KAVON Simon/SARA / [id number]
== END 2023-04-03 11:34 | disposition home or self-care (01) ==
PROVIDERS: PCP Nurse Practitioner Family; Visit Provider Internal Medicine
PROC: 0DJD8ZZ Inspection of Lower Intestinal Tract, Via Natural or Artificial Opening Endoscopic (ICD-10-PCS; CPT 45378; principal; 2023-04-03 09:30)
DX: Z12.11 Encounter for screening for malignant neoplasm of colon (principal); Z86.010 Personal history of colon polyps; Z91.199 Patient's noncompliance with other medical treatment and regimen due to unspecified reason; K57.30 Diverticulosis of large intestine without perforation or abscess without bleeding; K64.8 Other hemorrhoids; E11.42 Type 2 diabetes mellitus with diabetic polyneuropathy; I10 Essential (primary) hypertension; I25.10 Atherosclerotic heart disease of native coronary artery without angina pectoris; Z79.84 Long term (current) use of oral hypoglycemic drugs; Z79.85 Long-term (current) use of injectable non-insulin antidiabetic drugs; Z79.82 Long term (current) use of aspirin; Z79.899 Other long term (current) drug therapy; F17.210 Nicotine dependence, cigarettes, uncomplicated
CPT/HCPCS: 45378; 82947

== ENCOUNTER 2023-04-20 07:54 | Outpatient (AMB) | payer MEDICARE, MEDICAID, SELFPAY ==
[2023-04-20 08:07] VITALS: BP 140/78; PULSE 66; BMI 29.1
--- NOTE | 2023-04-20 08:07 | MHC.OFFVIS ---
Intake Vital Signs 04/20/23 08:07 Height 5 ft 8 in Weight 191 lb 2.252 oz BMI 29.1 BP 140/78 H Blood Pressure Location Lt brachial Position Sitting Pulse 66 Pulse Source Pulse Oximeter Intake Visit Reasons: DM per antoine/LVM Intake Note: Patient presents today to follow up on Type 2 Diabetes Mellitus. Patient receives DME supplies through: Pharmacy Last Diabetic Eye exam: 01/2023 Last Podiatry Visit: 03/2023 Random Glucose: 141 mg/dl HgA1C: 8.7% Precision Machinist Required: No Accompanied by: Self / Same As Patient Allergies No Known Allergies [No Known Allergies*] Allergy (Verified 04/20/23 08:14) Medication List - Last Reconciled 04/20/23 by Reyes Kate MD aspirin (Adult Low Dose Aspirin) 81 mg PO DAILY blood sugar diagnostic (FreeStyle Lite Strips) 3times a day blood-glucose meter (FreeStyle Lite Meter kit) As directed buspirone 5 mg PO BID cholecalciferol (vitamin D3) 50 mcg PO DAILY divalproex ER 500 mg PO BID empagliflozin (Jardiance) 25 mg PO QAM gabapentin 800 mg PO TID 30 days insulin degludec (Tresiba FlexTouch U-100 insulin) 5 units (0.05 mL) subcut DAILY 30 days lisinopril 2.5 mg PO DAILY 90 days lithium carbonate 300 mg PO DAILY lithium carbonate 600 mg PO BEDTIME metformin 1,000 mg PO BID 90 days metoprolol tartrate 50 mg PO BID omega-3 fatty acids (Fish Oil Concentrate) 1 tab PO DAILY Ozempic (semaglutide) 1 mg (0.75 mL) subcut QWEEK NS pen needle, diabetic (BD Margot 2nd Gen Pen Needle) 1 ea miscellaneous DAILY 90 days pioglitazone 30 mg PO DAILY pravastatin 80 mg PO BEDTIME 90 days quetiapine 400 mg PO BEDTIME HPI HPI Comments History of Present Illness Details 57 YO M with PMHx T2DM and Grave's Disease who is seen in F/U for the same. The patient last or Dr. Schneider on 02/01/2023 1) T2DM: Initially diagnosed with T2DM in his 40's. Was initially started on treatment with Metformin. He has trialed and failed Trulicity and Bydureon. Current regimen Metformin 1000 mg PO BID, Pioglitazone 30 mg PO daily, Jardiance 25 mg PO daily, Ozempic 1 mg once a week and Tresiba 5 units daily. Glucometer download showed she is checking his point cares 2 point 5 times a day. Average glucose is 214 with standard deviation 76. Range is 83-458. 30% range with 70% hyperglycemia and no hypoglycemia Reports he is having frequent lows. No lows Most recent A1C: 9.5 % 01/31/2023, down from 10.0% 10/24/2022, up from 6.8% 04/01/2022, down from 7.2% 09/01/2021, up from 6.7% 08/19/2021 Has eyes checked yearly, last eye exam this yr next appt 05/01/2023 , has retinopathy. Has neuropathy, uses Gabapentin daily. Has nephropathy, on Lisinopril 2.5 mg PO daily. UAC WNL as measured on 12/24/2020. Has HLD, on Pravastatin 80 mg PO daily. Last LDL 72 04/01/2022. Denies CAD. Diet: Eats a balanced diet Weight: Stable 2) Grave's Disease: Has a history of Grave's disease diagnosed in 2014. He did not undergo a thorough workup at that time. He had positive TSI and TPO antibodies. Thyroid uptake and scan revealed mildly increased uptake at 24 hours at 30.2%. No pattern was given. This was completed in 2014. After our initial consultation we stopped his Methimazole, and labs were repeated 2 weeks later. He was able to maintain euthyroidism indicating likely remission. Antibodies were reassessed with negative TSI and TRAB antibodies. TPO and TG antibodies were positive. He did have an US completed which revealed multiple nodules bilaterally. He underwent FNA biopsy 03/17/2022 of his RMP 1.5 cm thyroid nodule and his LUP 1.3 cm thyroid nodule. Results as follows: RMP 1.5 cm thyroid nodule - atypia of undetermined significance (bethesda category III), affirma benign LUP 1.3 cm thyroid nodule - atypia of undetermined significance (bethesda category III), affirma benign He has Grave's ophthalmopathy. He reports feeling well today. US Thyroid: 08/27/2021 FINDINGS: ? SIZE: Measurements of the thyroid lobes and nodules are given in sagittal, anteroposterior and transverse dimensions respectively. Right Thyroid Lobe: 6.83 x 3.19 x 2.74 cm, volume 31.2 mL. Parenchyma: The gland echotexture is homogeneous. Thyroid vascularity is normal. Left Thyroid Lobe: 6.69 x 3.18 x 3.22 cm, volume 35.9 mL. Parenchyma: The gland echotexture is heterogeneous. Thyroid vascularity is increased. Isthmus: 1.08 cm in maximum AP dimension. There are multiple thyroid nodules. The largest nodules are measured. Estimated total number of nodules greater than or equal to 1 cm: 2. Data Processing Clerk nodules are described as follows: 1. Location: Right mid. ?? ? Size: 0.62 x 0.55 x 0.71 cm, volume 0.13 mL. ?? ? Nodule characteristics: ?? ? Composition: Solid (2). ?? ? Echogenicity: Hypoechoic (2). ?? ? Shape: Not taller than wide (0). ?? ? Margins: Smooth (0). ?? ? Echogenic Foci: None (0). ?? ? ACR TI-RADS total points: 4 ?? ? ACR TI-RADS category: 4 2. Location: Right mid. ?? ? Size: 1.5 x 0.90 x 1.4 cm, volume 0.93 mL. ?? ? Nodule characteristics: ?? ? Composition: Solid (2). ?? ? Echogenicity: Isoechoic (1). ?? ? Shape: Not taller than wide (0). ?? ? Margins: Smooth (0). ?? ? Echogenic Foci: None (0). ?? ? ACR TI-RADS total points: 3 ?? ? ACR TI-RADS category: 3 3. Location: Left superior. ?? ? Size: 1.3 x 0.90 x 1.2 cm, volume 0.80 mL. ?? ? Nodule characteristics: ?? ? Composition: Solid/almost completely solid (2). ?? ? Echogenicity: Isoechoic (1). ?? ? Shape: Not taller than wide (0). ?? ? Margins: Smooth (0). ?? ? Echogenic Foci: Punctate echogenic foci (3). ?? ? ACR TI-RADS total points: 6 ?? ? ACR TI-RADS category: 4 4. Location: Left superior. ?? ? Size: 0.60 x 0.42 x 0.52 cm, volume 0.07 mL. ?? ? Nodule characteristics: ?? ? Composition: Spongiform (0). ?? ? Echogenicity: Anechoic (0). ?? ? Shape: Not taller than wide (0). ?? ? Margins: Smooth (0). ?? ? Echogenic Foci: None (0). ?? ? ACR TI-RADS total points: 0 ?? ? ACR TI-RADS category: 1 5.? Location: Left mid. ?? ? Size: 0.60 x 0.55 x 0.60 cm, volume 0.09 mL. ?? ? Nodule characteristics: ?? ? Composition: Cystic(0). ?? ? ACR TI-RADS total points: 0 ?? ? ACR TI-RADS category: 1 NODES: No lymphadenopathy is seen in the tissue surrounding the thyroid gland. Labs: Laboratory Tests 04/01/22 04/01/22 04/01/22 07:56 07:56 07:56 Sodium 140 Potassium 4.9 Creatinine 0.70 Estimated GFR > 60 Hemoglobin A1c % 6.8 LDL Cholesterol, C alc 72 TSH 1.14 Free T4 1.00 Total T3 04/01/22 07:56 Sodium Potassium Creatinine Estimated GFR Hemoglobin A1c % LDL Cholesterol, C alc TSH Free T4 Total T3 96 PFSH Medical History CAD (coronary artery disease) Diabetic polyneuropathy associated with type 2 diabetes mellitus Essential hypertension Graves' disease with exophthalmos Heart murmur Hyperlipidemia [facility] (current) use of insulin Mild non proliferative diabetic retinopathy Multinodular thyroid Personal history of nicotine dependence T2DM (type 2 diabetes mellitus) Tubular adenoma of colon Vitamin D deficiency Surgical History History of colonoscopy Family History Father HTN (hypertension) CVD (cardiovascular disease) Myocardial infarction Mother No problems noted. Maternal Grandmother Unknown family medical history Social History Housing: House Alcohol intake: never Patient Tobacco Use Status: Current everyday Tobacco user Tobacco use type: Cigarette Cigarette Packs Per Day: 1 Cigarettes Per Day: 20.0 Years Smoked: (current smoker - onset 13yo, 1ppd x 43yrs, 40pyh) e-Cigarette/Vaping Use: Never Used Second Hand Smoke Exposure: No service: No Current occupational status: disabled Current occupational exposures/hazards: No Cognitive needs: No Hearing needs: No Vision needs: No Physical Exam Vital Signs: Last Vital Signs Pulse 66 04/20/23 08:07 BP 140/78 H 04/20/23 08:07 BMI result Body Mass Index 29.1 Absence of Cushingoid features. Absence of acromegalic features. Neck exam reveals nl size thyroid about 15 gms. Thyroid is nodular to palpation. No carotid bruits present. Lungs CTA. Heart S1 S2, Reg R/R. No M/R/ G. Skin exam reveals absence of vitiligo or acanthosis nigricans. Abdominal exam reveals Soft NT/ND with NA BS. No organomegaly present. There is the presence of bilateral prognosis Neck Other: . Extrem Other: Visual exam of foot performed. No ulcerations or open lesions. No onchomycosis, no callouses.Pulses 2 + distally Sensation intact to monofilament exam. Vibratory sensation sensed is decreased with 128 Hz tuning fork Results AMB Hemoglobin A1c AMB Hemoglobin A1c 8.7 % Last Edit by Darline Desir on 04/20/23 08:30 Results Reviewed Results Reviewed: 04/20/23 08:19 Glucose, Whole Blood Routine Laboratory Last Values Glucose (Clinic) 141 mg/dL (60-115) H 04/20/23 08:19 Assessment & Plan Assessment & Plan (1) T2DM (type 2 diabetes mellitus): Code(s): E11.9 - Type 2 diabetes mellitus without complications Qualifiers: Diabetes mellitus snf insulin use: with adjunct faculty for medical terminology use Diabetes mellitus complication status: with hyperglycemia Qualified Code(s): E11.65 - Type 2 diabetes mellitus with hyperglycemia; Z79.4 - lobsterman (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 Plan is that the patient check his point cares pre and post meals. Will talk to the patient about getting a sensor like Girish. Will check a glucose and C-peptide . Assuming patient has adequate C-peptide, could consider switching Ozempic to Mounjaro as patient has failed 3 G LP 1 including Trulicity, Bydureon and Ozempic. If patient does have adequate C-peptide, could consider transition to basal-bolus insulin or using an insulin pump. Will send patient to conservation educator and inspector scales. Went over with patient the correlation of poor glycemic control to development and progression complication (2) Graves' disease with exophthalmos: Code(s): E05.00 - Thyrotoxicosis with diffuse goiter without thyrotoxic crisis or storm Plan: Currently in remission. Appears to be clinically euthyroid. Recent thyroid ultrasound showed no change in the size of the small thyroid nodules which were previously biopsied Orders: Orders AMB Hemoglobin A1c Today E11.9 - Type 2 diabetes mellitus without complications C Peptide Today E11.9 - Type 2 diabetes mellitus without complications Glucose Random Today E11.9 - Type 2 diabetes mellitus without complications Referrals Diabetes Education Referral E05.00 - Thyrotoxicosis with diffuse goiter without thyrotoxic crisis or storm, E11.9 - Type 2 diabetes mellitus without complications Nutrition/Dietitian Referral E05.00 - Thyrotoxicosis with diffuse goiter without thyrotoxic crisis or storm, E11.9 - Type 2 diabetes mellitus without complications Coding Level of Care Code Est Pt Level 4 (52582) Diagnoses Type 2 diabetes mellitus with hyperglycemia, with long-term current use of insulin E11.65; Z79.4 Diabetes mellitus adjunct faculty for medical terminology insulin use: with snf use Diabetes mellitus complication status: with hyperglycemia Graves' disease with exophthalmos E05.00
[2023-04-20 08:24] LABS: Glucose, Whole Blood 141 mg/dL (60-115)
== END 2023-04-20 09:12 | disposition home or self-care (01) ==
PROVIDERS: PCP Nurse Practitioner Family; Visit Provider Internal Medicine Endocrinology, Diabetes & Metabolism
DX: E11.65 Type 2 diabetes mellitus with hyperglycemia (principal); Z79.4 Long term (current) use of insulin; E05.00 Thyrotoxicosis with diffuse goiter without thyrotoxic crisis or storm; E11.9 Type 2 diabetes mellitus without complications
CPT/HCPCS: 99214

== ENCOUNTER → 2023-04-20 07:54 | Outpatient (BNVA) | payer MEDICARE, MEDICAID, SELFPAY | PROVIDERS: PCP Nurse Practitioner Family; Visit Provider Internal Medicine Endocrinology, Diabetes & Metabolism | DX: I25.10 Atherosclerotic heart disease of native coronary artery without angina pectoris (principal); I73.9 Peripheral vascular disease, unspecified; I10 Essential (primary) hypertension; E05.00 Thyrotoxicosis with diffuse goiter without thyrotoxic crisis or storm; E78.5 Hyperlipidemia, unspecified; E11.65 Type 2 diabetes mellitus with hyperglycemia; Z79.4 Long term (current) use of insulin | CPT/HCPCS: 82947; 83036; 99212 ==

== ENCOUNTER 2023-04-20 14:24 | Outpatient (AMB) | payer MEDICARE, MEDICAID, SELFPAY ==
[2023-04-20 14:33] VITALS: BP 130/72; PULSE 73; BMI 29.4
--- NOTE | 2023-04-20 14:33 | MHC.OFFVIS ---
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: No Allergies No Known Allergies [No Known Allergies*] Allergy (Verified 04/20/23 14:36) Medication List - Last Reconciled 04/20/23 by DEYANIRA Cowan aspirin (Adult Low Dose Aspirin) 81 mg PO DAILY blood sugar diagnostic (FreeStyle Lite Strips) 3times a day blood-glucose meter (FreeStyle Lite Meter kit) As directed buspirone 5 mg PO BID cholecalciferol (vitamin D3) 50 mcg PO DAILY divalproex ER 500 mg PO BID empagliflozin (Jardiance) 25 mg PO QAM gabapentin 800 mg PO TID 30 days insulin degludec (Tresiba FlexTouch U-100 insulin) 5 units (0.05 mL) subcut DAILY 30 days lisinopril 2.5 mg PO DAILY 90 days lithium carbonate 300 mg PO DAILY lithium carbonate 600 mg PO BEDTIME metformin 1,000 mg PO BID 90 days metoprolol tartrate 50 mg PO BID omega-3 fatty acids (Fish Oil Concentrate) 1 tab PO DAILY Ozempic (semaglutide) 1 mg (0.75 mL) subcut QWEEK NS pen needle, diabetic (BD Margot 2nd Gen Pen Needle) 1 ea miscellaneous DAILY 90 days pioglitazone 30 mg PO DAILY pravastatin 80 mg PO BEDTIME 90 days quetiapine 400 mg PO BEDTIME HPI f/up CTA per HS HPI Details Jovon is a 57-year-old male with past medical history hypertension, hyperlipidemia, diabetes, smoking, coronary artery disease, aortic sclerosis who presents for follow-up after recent CTA of the coronary arteries. Today he reports that he has been getting bilateral calf cramping with walking. At times he feels something in his chest but he denies that is chest pain or pressure. With activity he feels it is his legs that slow him down and nothing else. He denies shortness of breath, palpitations, dizziness, presyncope, syncope, PND, orthopnea or edema. He says he is taking his medications as directed. Continues to smoke 1 pack of cigarettes per day. Tells me his hemoglobin A1c is still elevated and he just started seeing a new steel cutter, Dr. Kate. [facility] Medical History Tubular adenoma of colon Hyperlipidemia Personal history of nicotine dependence CAD (coronary artery disease) Essential hypertension Multinodular thyroid Heart murmur Vitamin D deficiency T2DM (type 2 diabetes mellitus) Mild non proliferative diabetic retinopathy Graves' disease with exophthalmos Diabetic polyneuropathy associated with type 2 diabetes mellitus USP (current) use of insulin Surgical History History of colonoscopy Family History Father HTN (hypertension) CVD (cardiovascular disease) Myocardial infarction Mother No problems noted. Maternal Grandmother Unknown family medical history Social History Housing: House Alcohol intake: never Patient Tobacco Use Status: Current everyday Tobacco user Tobacco use type: Cigarette Cigarette Packs Per Day: 1 Cigarettes Per Day: 20.0 Years Smoked: (current smoker - onset 13yo, 1ppd x 43yrs, 40pyh) e-Cigarette/Vaping Use: Never Used Second Hand Smoke Exposure: No service: No Current occupational status: disabled Current occupational exposures/hazards: No Cognitive needs: No Hearing needs: No Vision needs: No Review of Systems Const All systems reviewed & are unremarkable except as noted in HPI and below ENT Denies dizziness Card Denies chest pain, Denies chest pain at rest, Denies chest pain with activity, Denies rapid heart rate, Denies pedal edema, Denies edema, Denies leg edema, Denies lightheadedness, Denies palpitations, Denies dyspnea, Denies dyspnea on exertion and Denies orthopnea Resp Denies cough, Denies dyspnea and Denies dyspnea on exertion GI Denies hematochezia and Denies change in stool character Musc Denies abnormal gait, Denies limited range of motion, Reports muscle cramps (Bilateral in calfs with walking), Denies muscle weakness, Denies numbness, Denies radiating pain into limb, Denies stiffness and Denies tingling Neuro Denies abnormal gait, Denies dizziness, Denies numbness and Denies tingling Endo Denies palpitations Physical Exam Vital Signs: Last Vital Signs Pulse 73 04/20/23 14:33 BP 130/72 04/20/23 14:33 BMI result Body Mass Index 29.4 Const General: cooperative, healthy appearing, comfortable and no acute distress Orientation/consciousness: patient oriented x3 Neck Neck: Yes normal visual inspection Resp Effort & Inspection: normal respiratory effort Auscultation: clear to auscultation bilaterally, no crackles, no rales, no rhonchi and no wheezes Cardio Jugular venous distension: no JVD Rate: regular rate Rhythm: regular rhythm Heart sounds: S1 normal heart sound present, S2 normal heart sound present, no murmurs and no rubs Neuro General: patient oriented x3 Extrem General: Yes normal to inspection, No no pedal edema and No calf tenderness Psych Appearance: grossly normal Mental Status: mental status grossly normal Speech and movement: Normal speech and movement present Results AMB Hemoglobin A1c AMB Hemoglobin A1c 8.7 % Last Edit by Darline Desir on 04/20/23 08:30 Assessment & Plan Assessment & Plan (1) CAD (coronary artery disease): Code(s): I25.10 - Atherosclerotic heart disease of [place] coronary artery without angina pectoris Qualifiers: Coronary Disease-Associated Artery/Lesion type: [place] artery [place] vs. transplanted heart: [place] heart Associated angina: without angina Qualified Code(s): I25.10 - Atherosclerotic heart disease of [place] coronary artery without angina pectoris Plan: Newer finding of coronary artery disease. Prior lungs CT scan had shown moderate to severe coronary calcifications. He underwent a coronary CTA on 12/23/2022 showing LAD severe calcification proximal less than 50% and distal, can not exclude high-grade stenosis, left circumflex 2nd OM 60% stenosis, RCA can not exclude high-grade stenosis, focal severe stenosis of the proximal PDA. Spent time going over test result with him in detail. Explained the diagnosis of coronary artery disease and need for further evaluation. At present he denies anginal symptoms but is vaguely describing some feeling in his chest at times. Informed that his CTA and comorbidities put him at high risk for [place]. discussed need for cardiac catheterization to further evaluate. Risks of the procedure reviewed. He states that he wants to think about it and thank you for providing him this information. Signs and symptoms of angina/[place] reviewed. Emergency care if needed for symptoms. At this time will need strict cardiac risk factor modification. Instructed on the need to stop smoking. He is currently pursuing hypnosis as an option for this. He needs good cholesterol control with ideal LDL goal less than 70. Labs done 11/03/2022 show LDL 78. He was on pravastatin at that time. Will change him to atorvastatin 40 mg daily. Plan for a fasting lipid profile in 2-3 months. He needs good diabetic control with hemoglobin A1c goal less than 7. Labs done 04/20/2023 show hemoglobin A1c 8.7. He is now following with endocrinology, Dr. Kate. Continue activity as tolerated. He does report bilateral calf cramping with walking suggestive of claudication. This is limiting his activity level. Will check a lower extremity arterial ultrasound to assess for PVD. Cardiology follow-up in 3 months, sooner if needed. Informed that if he decides on pursuing cardiac catheterization to just notify our office and we will make arrangements. (2) Essential hypertension: Code(s): I10 - Essential (primary) hypertension Plan: Normal range at present. Continue current antihypertensives. The importance of good blood pressure control reviewed with him with ideal goal less than 130/85 (3) Hyperlipidemia: Code(s): E78.5 - Hyperlipidemia, unspecified Qualifiers: Hyperlipidemia type: unspecified Qualified Code(s): E78.5 - Hyperlipidemia, unspecified Plan: [place] LDL goal less than 70 in patient with diabetes and CAD. Changing statin as above (4) T2DM (type 2 diabetes mellitus): Code(s): E11.9 - Type 2 diabetes mellitus without complications Qualifiers: Diabetes mellitus long lines operator insulin use: with [facility] use Diabetes mellitus complication status: with hyperglycemia Qualified Code(s): E11.65 - Type 2 diabetes mellitus with hyperglycemia; Z79.4 - USP (current) use of insulin Plan: Hemoglobin A1c goal less than 7. Following with endocrinology (5) Claudication: Code(s): I73.9 - Peripheral vascular disease, unspecified Plan: Reported bilateral claudication. Lower extremity arterial ultrasound being ordered Orders: Orders US arterial duplex LE BI Today E78.5 - Hyperlipidemia, unspecified, I73.9 - Peripheral vascular disease, unspecified Medications: New atorvastatin 40 mg PO BEDTIME 90 tabs 1RF Discontinued pravastatin Discontinued Reason: Doctor's Order 80 mg PO BEDTIME 90 days 90 tabs 11RF E78.5 - Hyperlipidemia, unspecified Coding Level of Care Code Est Pt Level 4 (97900) Diagnoses Coronary artery disease involving [place] coronary artery of [place] heart without angina pectoris I25.10 Coronary Disease-Associated Artery/Lesion type: [place] artery [place] vs. transplanted heart: [place] heart Associated angina: without angina Essential hypertension I10 Hyperlipidemia, unspecified hyperlipidemia type E78.5 Hyperlipidemia type: unspecified Type 2 diabetes mellitus with hyperglycemia, with long-term current use of insulin E11.65; Z79.4 Diabetes mellitus [facility] insulin use: with long lines operator use Diabetes mellitus complication status: with hyperglycemia Claudication I73.9 Time Spent (min) 28
== END 2023-04-20 15:07 | disposition home or self-care (01) ==
PROVIDERS: PCP Nurse Practitioner Family; Referring Provider Nurse Practitioner Family; Visit Provider Nurse Practitioner Family
DX: I25.10 Atherosclerotic heart disease of native coronary artery without angina pectoris (principal); I10 Essential (primary) hypertension; E78.5 Hyperlipidemia, unspecified; E11.65 Type 2 diabetes mellitus with hyperglycemia; Z79.4 Long term (current) use of insulin; I73.9 Peripheral vascular disease, unspecified
CPT/HCPCS: 99214

== ENCOUNTER 2023-05-10 14:11 | Outpatient (REF) | payer MEDICARE, MEDICAID, SELFPAY ==
[2023-05-10 16:02] LABS: MANUAL DIFF FLAG NO
[2023-05-10 16:05] LABS: Basophils Percent Auto 0.6 % (0-2); Eosinophils Absolute Auto 0.1 X10*3/uL (0.0-0.4); Eosinophils Percent Auto 1.3 % (0-4); Hematocrit 42.7 % (42.0-52.0); Hemoglobin 14.3 g/dl (14.0-18.0); Imm Gran Abs Auto 0.01 X10*3/uL (0.00-0.03); Imm Gran Pct Auto 0.1 % (0.0-0.4); Lymphocytes Absolute Auto 1.4 X10*3/uL (1.2-4.9); Lymphocytes Percent Auto 20.1 % (20-40); Mean Corpuscular HGB Conc 33.5 g/dl (31.0-36.0); Mean Corpuscular Hemoglobin 32.4 pg (27.0-33.0); Mean Corpuscular Volume 96.8 fL (80.0-98.0); Mean Platelet Volume 9.6 fL (9.4-12.4); Monocytes Absolute Auto 0.6 X10*3/uL (0.1-1.2); Monocytes Percent Auto 8.9 % (2-11); Neutrophils Absolute Auto 4.7 x10*3/uL (2.0-8.3); Platelet Count 273 X10*3/uL (160-400); Red Blood Count 4.41 X10*6/uL (4.60-5.80); White Blood Count 6.8 X10*3/uL (4.8-10.8)
[2023-05-10 16:13] LABS: INTERNATIONAL NORM RATIO 0.8 (0.9-1.1); Prothrombin Time 9.7 SEC (11.1-13.3)
[2023-05-10 16:23] LABS: Appearance Urine Clear; Color Urine Yellow; Glucose Urine UA >=1000 mg/dL (Negative); Leukocyte Esterase Urine Negative (Negative); Nitrite Urine Negative (Negative); Specific Gravity - Urine >= 1.030 (1.005-1.025); UMIC TRIGGER UACC YES; Urine Blood Negative (Negative); Urine Ketones 15 mg/dL (Negative); Urine Protein Negative (Neg-Trace)
[2023-05-10 16:23] LABS: Glucose Random 199 mg/dL (60-115)
[2023-05-10 16:27] LABS: Bacteria Urine None Seen (None Seen); Hyaline Casts Urine 0-2 /LPF (0-2); RBC Urine 0-2 /HPF (0-2); Squamous Epithelial Cell Urine 0-2 /HPF (0-2); WBC Urine 0-5 /HPF (0-5)
[2023-05-10 16:28] LABS: Anion Gap 14 (12-20); Blood Urea Nitrogen 12 mg/dL (9-16); Calcium 9.1 mg/dL (8.4-10.2); Carbon Dioxide 23 mmol/L (22-29); Chloride 101 mmol/L (96-108); Estimated Glomerular Filt Rate > 60; Glucose Random 198 mg/dL (60-115); Potassium 4.6 mmol/L (3.3-5.1); Sodium 133 mmol/L (135-145)
[2023-05-13 02:08] LABS: C Peptide 0.93 ng/mL (0.80-3.85)
== END 2023-05-10 14:12 | disposition home or self-care (01) ==
LOC: HO.HMGCLDS 14:11
PROVIDERS: Internal Medicine Endocrinology, Diabetes & Metabolism; Nurse Practitioner Family; Visit Provider Nurse Practitioner Family
DX: R07.89 Other chest pain (principal); E11.9 Type 2 diabetes mellitus without complications
CPT/HCPCS: 36415; 80048; 81001; 82947; 84681; 85025; 85610

== ENCOUNTER → 2023-05-23 23:59 | Outpatient (BNV) | payer MEDICARE, MEDICAID, SELFPAY | PROVIDERS: PCP Nurse Practitioner Family; Visit Provider Internal Medicine Cardiovascular Disease | DX: R94.39 Abnormal result of other cardiovascular function study (principal); I20.89 Other forms of angina pectoris | CPT/HCPCS: 93458; 93571; 93572; 99152 ==

== ENCOUNTER 2023-06-06 14:27 | Outpatient (AMB) | payer MEDICARE, MEDICAID, SELFPAY ==
[2023-06-06 14:34] VITALS: BP 118/70; PULSE 71; O2SAT 98; BMI 29.0
--- NOTE | 2023-06-06 14:34 | MHC.OFFVIS ---
Intake Vital Signs 06/06/23 14:34 Height 5 ft 8 in Weight 190 lb 14.725 oz BMI 29.0 BP 118/70 Blood Pressure Location Lt brachial Position Sitting Pulse 71 Pulse Source Pulse Oximeter Pulse Oximetry (%) 98 Oxygen Delivery Method Room Air Intake Visit Reasons: Follow up post cardiac cath Intake Note: Pt presents to the office today for a follow up post cardiac catheter. Pt states he is feeling well and has no concerns at this point and time. Allergies No Known Allergies [No Known Allergies*] Allergy (Verified 06/06/23 14:36) Medication List - Last Reconciled 06/06/23 by DEYANIRA Cowan aspirin (Adult Low Dose Aspirin) 81 mg PO DAILY atorvastatin 40 mg PO BEDTIME blood sugar diagnostic (FreeStyle Lite Strips) 3times a day blood-glucose meter (FreeStyle Lite Meter kit) As directed buspirone 5 mg PO BID cholecalciferol (vitamin D3) 50 mcg PO DAILY divalproex ER 500 mg PO BID empagliflozin (Jardiance) 25 mg PO QAM gabapentin 800 mg PO TID 30 days insulin degludec (Tresiba FlexTouch U-100 insulin) 5 units (0.05 mL) subcut DAILY 30 days lisinopril 2.5 mg PO DAILY 90 days lithium carbonate 300 mg PO DAILY lithium carbonate 600 mg PO BEDTIME metformin 1,000 mg PO BID 90 days metoprolol tartrate 50 mg PO BID omega-3 fatty acids (Fish Oil Concentrate) 1 tab PO DAILY Ozempic (semaglutide) 1 mg (0.75 mL) subcut QWEEK NS pen needle, diabetic (BD Margot 2nd Gen Pen Needle) 1 ea miscellaneous DAILY 90 days pioglitazone 30 mg PO DAILY quetiapine 400 mg PO BEDTIME HPI Follow up post cardiac cath HPI Details Jovon is a 57-year-old male with past medical history hypertension, hyperlipidemia, diabetes, smoking, coronary artery disease, aortic sclerosis who had abnormal CTA of coronaries and now presents for follow-up after recent Cardiac catheterization. Today he states he has only been doing normal ADLs and does not over exert himself. He denies chest discomfort or sob with this activity but states if we put him on treadmill he would have symptoms . He denies palpitations, dizziness, presyncope, syncope, PND, orthopnea or edema. He does report bilateral calf cramping with walking distances. Right radial cath site feeling good. Taking meds as directed. 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 Maternal Grandmother Unknown family medical history Social History Housing: House Alcohol intake: never Patient Tobacco Use Status: Current everyday Tobacco user Tobacco use type: Cigarette Cigarette Packs Per Day: 1 Cigarettes Per Day: 20.0 Years Smoked: (current smoker - onset 13yo, 1ppd x 43yrs, 40pyh) e-Cigarette/Vaping Use: Never Used Second Hand Smoke Exposure: No service: No Current occupational status: disabled Current occupational exposures/hazards: No Cognitive needs: No Hearing needs: No Vision needs: No Review of Systems Const All systems reviewed & are unremarkable except as noted in HPI and below Physical Exam Vital Signs: Last Vital Signs Pulse 71 06/06/23 14:34 BP 118/70 06/06/23 14:34 Pulse Ox 98 06/06/23 14:34 Oxygen Delivery Method Room Air 06/06/23 14:34 BMI result Body Mass Index 29.0 Const General: cooperative, healthy appearing, comfortable and no acute distress Orientation/consciousness: patient oriented x3 Neck Neck: Yes normal visual inspection Resp Effort & Inspection: normal respiratory effort Auscultation: clear to auscultation bilaterally, no crackles, no rales, no rhonchi and no wheezes Cardio Jugular venous distension: no JVD Rate: regular rate Rhythm: regular rhythm Heart sounds: S1 normal heart sound present, S2 normal heart sound present, no gallops, no murmurs and no rubs Neuro General: patient oriented x3 Extrem Other: right radial cath site well healed General: Yes normal to inspection Psych Appearance: grossly normal Mental Status: mental status grossly normal Speech and movement: Normal speech and movement present Assessment & Plan Assessment & Plan (1) CAD (coronary artery disease): Code(s): I25.10 - Atherosclerotic heart disease of [place] coronary artery without angina pectoris Qualifiers: Associated angina: without angina Coronary Disease-Associated Artery/Lesion type: [place] artery [place] vs. transplanted heart: [place] heart Qualified Code(s): I25.10 - Atherosclerotic heart disease of [place] coronary artery without angina pectoris Plan: Newer finding of coronary artery disease. Prior lungs CT scan had shown moderate to severe coronary calcifications. He underwent a coronary CTA on 12/23/2022 showing LAD severe calcification proximal less than 50% and distal, can not exclude high-grade stenosis, left circumflex 2nd OM 60% stenosis, RCA can not exclude high-grade stenosis, focal severe stenosis of the proximal PDA. Spent time going over test result with him in detail.Following last visit he agreed to cardiac cath which occurred on 05/23/23 and showed significant LAD, OM1 and OM3 ostial stenosis. The cath note indicated the best way for revascularization would be coronary artery bypass grafting. Reviewed results with pt and he states he has not be referred to cardiac surgery as of yet. He says he was told he didnt need surgery now due to no chest discomfort. He denies having any symptoms with his normal daily acitivities but states if he pushes himself more he would get symptoms . Will discuss with his primary lead front desk agent, regarding referral to cardiac surgery now. Will continue on aspirin indefinitely. Continue atorvastatin. He says that PCP will be doing Lipid profile in near future. [place] LDL goal < 70. Continue Metoprolol. Need for each medication reviewed with him. He needs good diabetic control with hemoglobin A1c goal less than 7. Labs done 04/20/2023 show hemoglobin A1c 8.7. He is now following with endocrinology, Dr. Kate. Continue usual activity as tolerated. He does report bilateral calf cramping with walking suggestive of claudication. LE arterial ultrasound ordered last visit and not obtained as of yet. Cardiology follow up in 3 mo, sooner if needed. Emergency care if needed for symptoms. (2) S/P cardiac cath: Comment: 05/23 Mid LAD 70% stenosis, IFR .81 Ostial OM1 and OM3 with significant stenosis Code(s): Z98.890 - Other specified postprocedural states (3) Essential hypertension: Code(s): I10 - Essential (primary) hypertension Plan: Normal range at present. Continue current antihypertensives. The importance of good blood pressure control reviewed with him with ideal goal less than 130/85 (4) Hyperlipidemia: Code(s): E78.5 - Hyperlipidemia, unspecified Qualifiers: Hyperlipidemia type: unspecified Qualified Code(s): E78.5 - Hyperlipidemia, unspecified Plan: [place] LDL goal less than 70 in patient with diabetes and CAD. At last visit his statin was changed to Atorvastatin to improve lipid control. Repeat fasting lipids to be done by PCP. (5) T2DM (type 2 diabetes mellitus): Code(s): E11.9 - Type 2 diabetes mellitus without complications Qualifiers: Diabetes mellitus complication status: with hyperglycemia Diabetes mellitus [facility] insulin use: with [facility] use Qualified Code(s): E11.65 - Type 2 diabetes mellitus with hyperglycemia; Z79.4 - custodial (current) use of insulin Plan: Hemoglobin A1c goal less than 7. Following with endocrinology (6) Claudication: Code(s): I73.9 - Peripheral vascular disease, unspecified Plan: Reported bilateral claudication. Lower extremity arterial ultrasound being ordered Coding Level of Care Code Est Pt Level 4 (90268) Diagnoses Coronary artery disease involving [place] coronary artery of [place] heart without angina pectoris I25.10 Associated angina: without angina Coronary Disease-Associated Artery/Lesion type: [place] artery [place] vs. transplanted heart: [place] heart S/P cardiac cath Z98.890 Essential hypertension I10 Hyperlipidemia, unspecified hyperlipidemia type E78.5 Hyperlipidemia type: unspecified Type 2 diabetes mellitus with hyperglycemia, with long-term current use of insulin E11.65; Z79.4 Diabetes mellitus complication status: with hyperglycemia Diabetes mellitus [facility] insulin use: with [facility] use Claudication I73.9 Time Spent (min) 28
== END 2023-06-06 15:16 | disposition home or self-care (01) ==
PROVIDERS: PCP Nurse Practitioner Family; Visit Provider Nurse Practitioner Family
DX: I25.10 Atherosclerotic heart disease of native coronary artery without angina pectoris (principal); Z98.890 Other specified postprocedural states; I10 Essential (primary) hypertension; E78.5 Hyperlipidemia, unspecified; E11.65 Type 2 diabetes mellitus with hyperglycemia; Z79.4 Long term (current) use of insulin; I73.9 Peripheral vascular disease, unspecified
CPT/HCPCS: 99214

== ENCOUNTER → 2023-06-06 14:27 | Outpatient (BNVA) | payer MEDICARE, MEDICAID, SELFPAY | PROVIDERS: PCP Nurse Practitioner Family; Visit Provider Nurse Practitioner Family | DX: I25.10 Atherosclerotic heart disease of native coronary artery without angina pectoris (principal); I10 Essential (primary) hypertension; I73.9 Peripheral vascular disease, unspecified; E78.5 Hyperlipidemia, unspecified; E11.65 Type 2 diabetes mellitus with hyperglycemia; Z79.4 Long term (current) use of insulin; Z98.890 Other specified postprocedural states | CPT/HCPCS: 99212 ==

== ENCOUNTER 2023-07-04 14:42 | Outpatient (REF) | payer MEDICARE, MEDICAID, SELFPAY ==
--- NOTE | ~2023-07-04 | US_ITS ---
EXAMINATION: NONINVASIVE ASSESSMENT OF THE ARTERIES OF BOTH LOWER EXTREMITIES INCLUDING BILATERAL LOWER EXTREMITY DUPLEX. CLINICAL INFORMATION: Peripheral vascular disease COMPARISON: None TECHNIQUE: duplex Doppler techniques with wave form analysis and measurement of velocities in the common femoral, profunda femoral, superficial femoral, popliteal, tibial and peroneal arteries. The study was performed only at rest. FINDINGS: There is atherosclerotic disease bilaterally. RIGHT LEG Common femoral artery: 135 cm/s, Multiphasic Profunda femoris artery: 153 cm/s, Multiphasic Superficial femoral artery (proximal): 108 cm/s, Multiphasic Superficial femoral artery (mid): 118 cm/s, Multiphasic Superficial femoral artery (distal): 86 cm/s, Multiphasic Proximal Popliteal artery: 117 cm/s, Multiphasic Mid posterior tibial artery: 114 cm/s, Multiphasic LEFT LEG: Common femoral artery: 107 cm/s, Multiphasic Profunda femoris artery: 98 cm/s, Multiphasic Superficial femoral artery (proximal): 116 cm/s, Multiphasic Superficial femoral artery (mid): 100 cm/s, Multiphasic Superficial femoral artery (distal): 94 cm/s, Multiphasic Proximal Popliteal artery: 91 cm/s, Multiphasic Mid posterior tibial artery: 146 cm/s, Multiphasic US/US arterial duplex LE BI IMPRESSION: Atherosclerotic disease bilaterally, however no hemodynamically significant stenosis in the bilateral lower extremities.
== END 2023-07-04 14:43 | disposition home or self-care (01) ==
LOC: HO.US 14:42
PROVIDERS: PCP Nurse Practitioner Family; Visit Provider Nurse Practitioner Family
DX: I73.9 Peripheral vascular disease, unspecified (principal); E78.5 Hyperlipidemia, unspecified
CPT/HCPCS: 93925

== ENCOUNTER 2023-07-13 15:04 | Outpatient (AMB) | payer MEDICARE, MEDICAID, SELFPAY ==
[2023-07-13 15:06] VITALS: BP 122/82; PULSE 70; BMI 29.1
--- NOTE | 2023-07-13 15:06 | MHC.OFFVIS ---
Intake Vital Signs 07/13/23 15:06 Height 5 ft 8 in Weight 191 lb 9.307 oz BMI 29.1 BP 122/82 Blood Pressure Location Lt brachial Position Sitting Pulse 70 Pulse Source Pulse Oximeter Intake Visit Reasons: DM NTMNG/confirm Intake Note: Patient present today to follow up on Type 2 Diabetes Mellitus and NTMNG. 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 1) T2DM: Initially diagnosed with T2DM in his 40's. Was initially started on treatment with Metformin. He has trialed and failed Trulicity and Bydureon. Current regimen Metformin 1000 mg PO BID, Pioglitazone 30 mg PO daily, Jardiance 25 mg PO daily, Ozempic 1 mg once a week and Tresiba 5 units daily. Girish download shows she is using the sensor 97% of the time. Average glucose is 285 with G mi of 10.1% and variability 29.7%. 12% range with 25% hyperglycemia and 63% very hyperglycemic and no hypoglycemia No lows Most recent A1C: 9.5 % 01/31/2023, down from 10.0% 10/24/2022, up from 6.8% 04/01/2022, down from 7.2% 09/01/2021, up from 6.7% 08/19/2021 Has eyes checked yearly, last eye exam this yr last t appt 05/01/2023 , has retinopathy. Has neuropathy, uses Gabapentin daily. Has nephropathy, on Lisinopril 2.5 mg PO daily. UAC WNL as measured on 12/24/2020. Has HLD, on Pravastatin 80 mg PO daily. Last LDL 72 04/01/2022. Denies CAD. Diet: Eats a balanced diet Weight: Stable 2) Grave's Disease: Has a history of Grave's disease diagnosed in 2014. He did not undergo a thorough workup at that time. He had positive TSI and TPO antibodies. Thyroid uptake and scan revealed mildly increased uptake at 24 hours at 30.2%. No pattern was given. This was completed in 2014. After our initial consultation we stopped his Methimazole, and labs were repeated 2 weeks later. He was able to maintain euthyroidism indicating likely remission. Antibodies were reassessed with negative TSI and TRAB antibodies. TPO and TG antibodies were positive. He did have an US completed which revealed multiple nodules bilaterally. He underwent FNA biopsy 03/17/2022 of his RMP 1.5 cm thyroid nodule and his LUP 1.3 cm thyroid nodule. Results as follows: RMP 1.5 cm thyroid nodule - atypia of undetermined significance (bethesda category III), affirma benign LUP 1.3 cm thyroid nodule - atypia of undetermined significance (bethesda category III), affirma benign He has Grave's ophthalmopathy. He reports feeling well today. US Thyroid: 08/27/2021 FINDINGS: ? SIZE: Measurements of the thyroid lobes and nodules are given in sagittal, anteroposterior and transverse dimensions respectively. Right Thyroid Lobe: 6.83 x 3.19 x 2.74 cm, volume 31.2 mL. Parenchyma: The gland echotexture is homogeneous. Thyroid vascularity is normal. Left Thyroid Lobe: 6.69 x 3.18 x 3.22 cm, volume 35.9 mL. Parenchyma: The gland echotexture is heterogeneous. Thyroid vascularity is increased. Isthmus: 1.08 cm in maximum AP dimension. There are multiple thyroid nodules. The largest nodules are measured. Estimated total number of nodules greater than or equal to 1 cm: 2. File System Installer nodules are described as follows: 1. Location: Right mid. ?? ? Size: 0.62 x 0.55 x 0.71 cm, volume 0.13 mL. ?? ? Nodule characteristics: ?? ? Composition: Solid (2). ?? ? Echogenicity: Hypoechoic (2). ?? ? Shape: Not taller than wide (0). ?? ? Margins: Smooth (0). ?? ? Echogenic Foci: None (0). ?? ? ACR TI-RADS total points: 4 ?? ? ACR TI-RADS category: 4 2. Location: Right mid. ?? ? Size: 1.5 x 0.90 x 1.4 cm, volume 0.93 mL. ?? ? Nodule characteristics: ?? ? Composition: Solid (2). ?? ? Echogenicity: Isoechoic (1). ?? ? Shape: Not taller than wide (0). ?? ? Margins: Smooth (0). ?? ? Echogenic Foci: None (0). ?? ? ACR TI-RADS total points: 3 ?? ? ACR TI-RADS category: 3 3. Location: Left superior. ?? ? Size: 1.3 x 0.90 x 1.2 cm, volume 0.80 mL. ?? ? Nodule characteristics: ?? ? Composition: Solid/almost completely solid (2). ?? ? Echogenicity: Isoechoic (1). ?? ? Shape: Not taller than wide (0). ?? ? Margins: Smooth (0). ?? ? Echogenic Foci: Punctate echogenic foci (3). ?? ? ACR TI-RADS total points: 6 ?? ? ACR TI-RADS category: 4 4. Location: Left superior. ?? ? Size: 0.60 x 0.42 x 0.52 cm, volume 0.07 mL. ?? ? Nodule characteristics: ?? ? Composition: Spongiform (0). ?? ? Echogenicity: Anechoic (0). ?? ? Shape: Not taller than wide (0). ?? ? Margins: Smooth (0). ?? ? Echogenic Foci: None (0). ?? ? ACR TI-RADS total points: 0 ?? ? ACR TI-RADS category: 1 5.? Location: Left mid. ?? ? Size: 0.60 x 0.55 x 0.60 cm, volume 0.09 mL. ?? ? Nodule characteristics: ?? ? Composition: Cystic(0). ?? ? ACR TI-RADS total points: 0 ?? ? ACR TI-RADS category: 1 NODES: No lymphadenopathy is seen in the tissue surrounding the thyroid gland. 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 Maternal Grandmother Unknown family medical history Social History Housing: House Alcohol intake: never Patient Tobacco Use Status: Current everyday Tobacco user Tobacco use type: Cigarette Cigarette Packs Per Day: 1 Cigarettes Per Day: 20.0 Years Smoked: (current smoker - onset 13yo, 1ppd x 43yrs, 40pyh) e-Cigarette/Vaping Use: Never Used Second Hand Smoke Exposure: No service: No Current occupational status: disabled Current occupational exposures/hazards: No Cognitive needs: No Hearing needs: No Vision needs: No Physical Exam Vital Signs: Last Vital Signs Pulse 70 07/13/23 15:06 BP 122/82 07/13/23 15:06 BMI result Body Mass Index 29.1 Absence of Cushingoid features. Absence of acromegalic features. Neck exam reveals nl size thyroid about 15 gms. Thyroid is nodular to palpation. No carotid bruits present. Lungs CTA. Heart S1 S2, Reg R/R. No M/R/ G. Skin exam reveals absence of vitiligo or acanthosis nigricans. Abdominal exam reveals Soft NT/ND with NA BS. No organomegaly present. There is the presence of bilateral prognosis Neck Other: . Extrem Other: Visual exam of foot performed. No ulcerations or open lesions. No onchomycosis, no callouses.Pulses 2 + distally Sensation intact to monofilament exam. Vibratory sensation sensed is decreased with 128 Hz tuning fork Results AMB Hemoglobin A1c AMB Hemoglobin A1c 9.6 % Last Edit by Darline Desir on 07/13/23 15:28 Results Reviewed Results Reviewed: Laboratory Last Values Glucose (Clinic) 153 mg/dL (60-115) H 07/13/23 15:16 Assessment & Plan Assessment & Plan (1) T2DM (type 2 diabetes mellitus): Code(s): E11.9 - Type 2 diabetes mellitus without complications Qualifiers: Diabetes mellitus complication status: with hyperglycemia Diabetes mellitus handkerchief presser insulin use: with senior living use Qualified Code(s): E11.65 - Type 2 diabetes mellitus with hyperglycemia; Z79.4 - pipe 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 Plan is switch the Ozempic to Mounjaro 2.5 mg . Pt has tried and failed Ozempic and Bydureon. . Will send patient to inclusion paraeducator and cap parts cutter. Went over with patient the correlation of poor glycemic control to development and progression complication. May need prandial insulin in combination if not to goal with Mounjaro. Mounjaro 2.5 mg samples given to pt . Lot # [id number] Exp 12/11/24 (2) Graves' disease with exophthalmos: Code(s): E05.00 - Thyrotoxicosis with diffuse goiter without thyrotoxic crisis or storm Plan: Currently in remission. Appears to be clinically euthyroid. Recent thyroid ultrasound showed no change in the size of the small thyroid nodules which were previously biopsied Orders: Orders AMB Hemoglobin A1c Today E11.9 - Type 2 diabetes mellitus without complications Medications: New tirzepatide (Mounjaro) 2.5 mg (0.5 mL) subcut QWEEK 4 weeks 2 mL 0RF Changed From insulin degludec (Tresiba FlexTouch U-100 insulin) 5 units (0.05 mL) subcut DAILY 30 days 1.5 mL 0RF To insulin degludec (Tresiba FlexTouch U-100 insulin) 20 units (0.2 mL) subcut DAILY 30 days 15 mL 0RF Discontinued Ozempic (semaglutide) Discontinued Reason: Doctor's Order 1 mg (0.75 mL) subcut QWEEK 9 mL 2RF NS E11.65 - Type 2 diabetes mellitus with hyperglycemia Coding Level of Care Code Est Pt Level 4 (42984) Diagnoses Type 2 diabetes mellitus with hyperglycemia, with long-term current use of insulin E11.65; Z79.4 Diabetes mellitus complication status: with hyperglycemia Diabetes mellitus handkerchief presser insulin use: with senior living use Graves' disease with exophthalmos E05.00
[2023-07-13 15:20] LABS: Glucose, Whole Blood 153 mg/dL (60-115)
== END 2023-07-13 15:55 | disposition home or self-care (01) ==
PROVIDERS: PCP Nurse Practitioner Family; Visit Provider Internal Medicine Endocrinology, Diabetes & Metabolism
DX: E11.65 Type 2 diabetes mellitus with hyperglycemia (principal); Z79.4 Long term (current) use of insulin; E05.00 Thyrotoxicosis with diffuse goiter without thyrotoxic crisis or storm; E11.9 Type 2 diabetes mellitus without complications
CPT/HCPCS: 99214

== ENCOUNTER → 2023-07-13 15:04 | Outpatient (BNVA) | payer MEDICARE, MEDICAID, SELFPAY | PROVIDERS: PCP Nurse Practitioner Family; Visit Provider Internal Medicine Endocrinology, Diabetes & Metabolism | DX: E11.65 Type 2 diabetes mellitus with hyperglycemia (principal); Z79.4 Long term (current) use of insulin; E05.00 Thyrotoxicosis with diffuse goiter without thyrotoxic crisis or storm | CPT/HCPCS: 82947; 83036; 99212 ==

== ENCOUNTER 2023-07-14 14:21 | Outpatient (AMB) | payer MEDICARE, MEDICAID, SELFPAY ==
--- NOTE | 2023-07-14 14:33 | A.OFFVIS_ITS ---
Intake Intake Visit Reasons: dm Virtual Customer Assistant Required: No Accompanied by: Self / Same As Patient Allergies No Known Allergies [No Known Allergies*] Allergy (Verified 07/13/23 15:15) HPI Comprehensive Diabetes Asmnt Most Recent Diabetes Results: Microalb/Creat Ratio 6.9 ug/mg cr 11/03/22 Cholesterol 138 mg/dL 11/03/22 HDL Cholesterol 42 mg/dL 11/03/22 Triglycerides 92 mg/dL 11/03/22 Creatinine 0.72 mg/dL (0.5-1.4) 05/10/23 Blood Urea Nitrogen 12 mg/dL (9-16) 05/10/23 Sodium 133 mmol/L (135-145) L 05/10/23 Potassium 4.6 mmol/L (3.3-5.1) 05/10/23 Chloride 101 mmol/L (96-108) 05/10/23 Carbon Dioxide 23 mmol/L (22-29) 05/10/23 Calcium 9.1 mg/dL (8.4-10.2) 05/10/23 AST 11 U/L (5-37) 01/31/23 ALT 12 U/L (0-40) 01/31/23 Total Protein 6.4 g/dL (6.5-8.0) L 01/31/23 Albumin 3.7 g/dL (3.5-5.0) 01/31/23 [facility] Medical History Tubular adenoma of colon Hyperlipidemia Personal history of nicotine dependence CAD (coronary artery disease) Essential hypertension Multinodular thyroid Heart murmur Vitamin D deficiency T2DM (type 2 diabetes mellitus) 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 Maternal Grandmother Unknown family medical history Social History Housing: House Alcohol intake: never Patient Tobacco Use Status: Current everyday Tobacco user Tobacco use type: Cigarette Cigarette Packs Per Day: 1 Cigarettes Per Day: 20.0 Years Smoked: (current smoker - onset 13yo, 1ppd x 43yrs, 40pyh) e-Cigarette/Vaping Use: Never Used Second Hand Smoke Exposure: No service: No Current occupational status: disabled Current occupational exposures/hazards: No Cognitive needs: No Hearing needs: No Vision needs: No Assessment & Plan Assessment & Plan (1) T2DM (type 2 diabetes mellitus): Code(s): E11.9 - Type 2 diabetes mellitus without complications Qualifiers: Diabetes mellitus usp insulin use: with supervisor intermediates use Diabetes mellitus complication status: with hyperglycemia Qualified Code(s): E11.65 - Type 2 diabetes mellitus with hyperglycemia; Z79.4 - halfway (current) use of insulin Plan: Diabetes self-management education and support participation record Assessment/scale: 1= needs instructed? 2= needs review? 3= comprehend keep point? 4= demonstrates understanding/ competent? NC= Not Covered Topics Learning Objective: Initial visit Initial or post srvc Initial or post srvc Initial or post srvc Initial or post srvc Initial or post srvc Post srvc Comments Pre Edu-assessment/plan Outcome or reassess Outcome or reassess Outcome or reassess Outcome or reassess Outcome or reassess Outcome or reassess Diabetes pathophysiology 1 Healthy eating 1 Being active 1 Taking medication 2 Monitoring glucose 2 Acute complication Chronic complicated 1 Lifestyle and healthy coping Diabetes distress in support ?Diabetes pathophysiology: ?Defined diabetes med identify own type of diabetes; list 3 options for treating diabetes Healthy eating: ?Described effect of type, amount and ?timing of food on blood glucose; list 3 methods for planning meal Being active: ?State effect of exercise on blood glucose level Taking medication: ?State effect of diabetes medications on diabetes; name diabetes medications taking, action and side effects Monitoring glucose: ?Identify recommended blood glucose targets and personal target Acute complication: ?List symptoms and treatment of hyper and hypoglycemia, DKA, sick day guidelines and guidelines for severe weather or situations of crisis and diabetes supply manage Chronic complication: ?To find the relationship of blood glucose levels to long- term complications of diabetes in screening and preventative measures Lifestyle and healthy coping: ?Described lifestyle and healthy coping strategies to rule out diabetes self-management Diabetes to stress and support: ?Recognize Diabetes to stress and be able to identified support options Learning objectives: The patient was provided with verbal and written education on the following topics as outlined below. The patient met all learning objectives and was able to verbalize understanding and provide teach back of education topics discussed . The patient was provided with the opportunity to ask questions and all questions were answered. Patient Assessment Assess patient education level/literacy/barriers Patient questions/concerns, patient's last A1c 9.6% on 07/13/2023. patient reports he has had diabetes for over 20 years. patient is starting Tresiba 20 units daily metformin 1000 mg b.i.d. pioglitazone 30 mg daily Jardiance 25 mg daily Ozempic 1 mg weekly, but will be switching to Mounjaro 2.5 mg weekly next Monday patient reports he is seeing smoking cessation counselor patient reports drinking, sugar a drinks on daily basis recommended to patient he switch from regular ice tea, to diet ice tea an use less sweetener in ice coffee. 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 What is Diabetes? Pathophysiology How the body produces and uses insulin Identify type of DM Risk factors Signs of Diabetes Brief overview of Diabetes Management Monitoring blood sugar Following a meal plan Regular exercise Maintaining a healthy weight Taking medication as needed Members of the care team (PCP, RN, MA, RD, CDE, security system analyst) Blood glucose monitoring When/how often to test Target blood sugar ranges patient is using Girish 3 to test glucose level average glucose for the past 2 weeks 286 mg/dL patient above target 87% patient is at target 13% patient below target 0% patient denies any hypoglycemic events Introduction to Nutrition Importance of healthy diet in managing DM Diet is personalized to individual preference Review patient?s regular diet/food preferences Who prepares meals/does food shopping/ Dining out?/ Barriers? How diet effects glucose Eating 3 balanced meals a day with small, healthy snacks between meals Review food groups Carbohydrates: What is a carbohydrate/Which food/food groups are considered carbohydrates Effect of carbohydrates on blood glucose Portion sizes Reading food labels Basic carb counting (if applicable per nursing assessment) Plate method Meal planning Recommendations: Follow plate method, consistent carbs and read nutritional labels. Smart Goal: patient will identify foods in current meal plan that contain carbohydrate Educational Materials: The patient was provided with the following written educational materials: Planning Healthy Meals Handout Patient Response to instructions: Comprehension of Instructions: Fair Readiness to make changes: Contemplation How confident they feel about making changes: fair Patient Instructions: Include regular daily activity. ADA recommends 30 minutes of exercise 5 days a week. Weight loss talk to PCP or Medical Education Specialist before starting new plan. Test blood sugar as directed; Fasting and 2hpp largest meal. Watch trends in results. Utilize results and to assess how food, physical activity and medications affect blood sugar results. Bring glucometer or CGM to next visit. Be knowledgeable about diabetes medication, its action, side effects, efficacy, toxicity, prescribed dosage, appropriate timing and frequency of administration, effect of missed and delayed doses and instructions for storage, travel and safety. Problem solving techniques to monitor hypo/hyperglycemia episodes and treatments. Reduce risk reduction behaviors, smoking cessation, regular eye, foot and dental examinations. patient will follow-up with warranty coordinator in 5 weeks Coding Level of Care Code Est Pt Level 1 (53382) Diagnoses Type 2 diabetes mellitus with hyperglycemia, with long-term current use of insulin E11.65; Z79.4 Diabetes mellitus supervisor intermediates insulin use: with usp use Diabetes mellitus complication status: with hyperglycemia
== END 2023-07-14 15:16 | disposition home or self-care (01) ==
PROVIDERS: PCP Nurse Practitioner Family; Visit Provider Registered Nurse Diabetes Educator
DX: E11.65 Type 2 diabetes mellitus with hyperglycemia (principal); Z79.4 Long term (current) use of insulin

== ENCOUNTER → 2023-07-14 14:21 | Outpatient (BNVA) | payer MEDICARE, MEDICAID, SELFPAY | PROVIDERS: PCP Nurse Practitioner Family; Visit Provider Registered Nurse Diabetes Educator | DX: E11.65 Type 2 diabetes mellitus with hyperglycemia (principal); Z79.4 Long term (current) use of insulin | CPT/HCPCS: 99211 ==

== ENCOUNTER 2023-08-08 13:32 | Outpatient (AMB) | payer MEDICARE, MEDICAID, SELFPAY ==
--- NOTE | 2023-08-08 13:36 | A.OFFVIS_ITS ---
Intake VS Expanded 08/08/23 13:37 Height 5 ft 8 in Weight 193 lb 1.999 oz BMI 29.4 Intake Visit Reasons: T2DM/LVM Allergies No Known Allergies [No Known Allergies*] Allergy (Verified 07/13/23 15:15) HPI Nutrition Presentation Details Pt presents for MNT for T2DM. Pt was referred by Dr. Kate Typical meal intake B:eggs, sausage, 2 toast, coffee hallf half and agave 2pm L: fish/potato/green beans, juice ( ice te , reg) 5-6 pm higinio kamari frozen meal and tortellini soup 10 pm : bagel with peanut butter , juice /coffee food frequency fish 2 times a week, fruit: 0/d ve times/wk milk: 4-5 serving/d starches> 20 serving/d beverages: water, ice tea, coffee 68oz or more per day smoking: > 1ppd, contemplating reducing /smoking cessation Physical activity: walking > 45 minutes daily [facility] Equation Height 5 ft 8 in Weight 193 lb Resting Metabolic Rate 1668.78 Calculated Activity Level Mild Activity Calories Needed to Maintain Weight 2294.57 Diagnosis Nutrition problem #1 food nutri know defi As related to (etiology) #1 diagnosis As evidenced by (sign/symptom) #1 knowledge deficit of diet Most Recent Diabetes Results: No Data to Display [facility] Medical History Tubular adenoma of colon Hyperlipidemia Personal history of nicotine dependence CAD (coronary artery disease) Essential hypertension Multinodular thyroid Heart murmur Vitamin D deficiency T2DM (type 2 diabetes mellitus) 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 Maternal Grandmother Unknown family medical history Social History Housing: House Alcohol intake: never Patient Tobacco Use Status: Current everyday Tobacco user Tobacco use type: Cigarette Cigarette Packs Per Day: 1 Cigarettes Per Day: 20.0 Years Smoked: (current smoker - onset 13yo, 1ppd x 43yrs, 40pyh) e-Cigarette/Vaping Use: Never Used Second Hand Smoke Exposure: No service: No Current occupational status: disabled Current occupational exposures/hazards: No Cognitive needs: No Hearing needs: No Vision needs: No Assessment & Plan Assessment & Plan (1) T2DM (type 2 diabetes mellitus): Code(s): E11.9 - Type 2 diabetes mellitus without complications Qualifiers: Diabetes mellitus hospital technician insulin use: with senior care use Diabetes mellitus complication status: with hyperglycemia Qualified Code(s): E11.65 - Type 2 diabetes mellitus with hyperglycemia; Z79.4 - lens 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 and 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 insulin Plan: Wt: 88Kg ( 08/2023 ) Est kcal needs as per MSJ:2200 (40% carb, 30% protein/fat) Est fluid needs as per 30 ml/d: 2600 Est prot per day as per 1 g/kg bw: 88 Recommend fiber intake : 8-10 g per day and gradually increase to 25-28 g per day for women and 35-38 g for men or as tolerated Recommend sodium intake per day: less than 2000 mg Educated patient on: ( R = reviewed V = verbalizes understanding N/R = needs review N/A = not applicable * Food sources of carbohydrate, adequate serving sizes and its role in various health conditions: R * Differences between complex carbohydrates a simple carbohydrates, role of fiber in diet: R * Lean protein sources of foods: R * Differences between types of fats and role in diet (mono on saturated fat fatty acids, saturated fatty acids, trans fats): N/R * Food sources of sodium in salt and healthy modifications for heart health in kidney health: NR * Vitamins and minerals: N/R * Healthy plate method concept: R V * Physical activity: Benefits a precaution: R * Hypoglycemia protocol (rule of 15): N/R * Dietary prevention of Hyperglycemia: R Patient Instructions: Follow healthy plate method at dinner 5 days a week have 1/2 sand as bedtime snack in place of pastries Choose low sugar beverages see meal plan ideas as reference Coding Level of Care Code Nutr Indiv Intake (51331) Diagnoses Type 2 diabetes mellitus with hyperglycemia, with long-term current use of insulin E11.65; Z79.4 Diabetes mellitus senior care insulin use: with senior care use Diabetes mellitus complication status: with hyperglycemia Time Spent (min) 30
[2023-08-08 13:37] VITALS: BMI 29.4
[2023-08-16 11:03] VITALS: BMI 29.3
== END 2023-08-08 14:22 | disposition home or self-care (01) ==
PROVIDERS: PCP Nurse Practitioner Family; Visit Provider Dietitian, Registered
DX: E11.65 Type 2 diabetes mellitus with hyperglycemia (principal); Z79.4 Long term (current) use of insulin

== ENCOUNTER → 2023-08-08 13:32 | Outpatient (BNVA) | payer MEDICARE, MEDICAID, SELFPAY | PROVIDERS: PCP Nurse Practitioner Family; Visit Provider Dietitian, Registered | DX: E11.65 Type 2 diabetes mellitus with hyperglycemia (principal); Z79.4 Long term (current) use of insulin; Z71.3 Dietary counseling and surveillance | CPT/HCPCS: 97802 ==

== ENCOUNTER 2023-08-15 13:27 | Outpatient (AMB) | payer MEDICARE, MEDICAID, SELFPAY ==
--- NOTE | 2023-08-15 14:10 | A.OFFVIS_ITS ---
Intake Intake Visit Reasons: DM 60 min-CONFIRMED Undertaker Assistant Required: No Accompanied by: Self / Same As Patient Allergies No Known Allergies [No Known Allergies*] Allergy (Verified 07/13/23 15:15) HPI Comprehensive Diabetes Asmnt Most Recent Diabetes Results: Microalb/Creat Ratio 6.9 ug/mg cr 11/03/22 Cholesterol 138 mg/dL 11/03/22 HDL Cholesterol 42 mg/dL 11/03/22 Triglycerides 92 mg/dL 11/03/22 Creatinine 0.72 mg/dL (0.5-1.4) 05/10/23 Blood Urea Nitrogen 12 mg/dL (9-16) 05/10/23 Sodium 133 mmol/L (135-145) L 05/10/23 Potassium 4.6 mmol/L (3.3-5.1) 05/10/23 Chloride 101 mmol/L (96-108) 05/10/23 Carbon Dioxide 23 mmol/L (22-29) 05/10/23 Calcium 9.1 mg/dL (8.4-10.2) 05/10/23 AST 11 U/L (5-37) 01/31/23 ALT 12 U/L (0-40) 01/31/23 Total Protein 6.4 g/dL (6.5-8.0) L 01/31/23 Albumin 3.7 g/dL (3.5-5.0) 01/31/23 [facility] Medical History Tubular adenoma of colon Hyperlipidemia Personal history of nicotine dependence CAD (coronary artery disease) Essential hypertension Multinodular thyroid Heart murmur Vitamin D deficiency T2DM (type 2 diabetes mellitus) 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 Maternal Grandmother Unknown family medical history Social History Housing: House Alcohol intake: never Patient Tobacco Use Status: Current everyday Tobacco user Tobacco use type: Cigarette Cigarette Packs Per Day: 1 Cigarettes Per Day: 20.0 Years Smoked: (current smoker - onset 13yo, 1ppd x 43yrs, 40pyh) e-Cigarette/Vaping Use: Never Used Second Hand Smoke Exposure: No service: No Current occupational status: disabled Current occupational exposures/hazards: No Cognitive needs: No Hearing needs: No Vision needs: No Assessment & Plan Assessment & Plan (1) T2DM (type 2 diabetes mellitus): Code(s): E11.9 - Type 2 diabetes mellitus without complications Qualifiers: Diabetes mellitus complication status: with hyperglycemia Diabetes mellitus fern cutter insulin use: with fern cutter use Qualified Code(s): E11.65 - Type 2 diabetes mellitus with hyperglycemia; Z79.4 - senior living (current) use of insulin Plan: Diabetes self-management education and support participation record Assessment/scale: 1= needs instructed? 2= needs review? 3= comprehend keep point? 4= demonstrates understanding/ competent? NC= Not Covered Topics Learning Objective: Initial visit Initial or post srvc Initial or post srvc Initial or post srvc Initial or post srvc Initial or post srvc Post srvc Comments Pre Edu-assessment/plan Outcome or reassess Outcome or reassess Outcome or reassess Outcome or reassess Outcome or reassess Outcome or reassess Diabetes pathophysiology 1 3 Healthy eating 1 2 Being active 1 Taking medication 2 3 Monitoring glucose 2 3 Acute complication 1 Chronic complicated 1 3 Lifestyle and healthy coping 2 Diabetes distress in support ?Diabetes pathophysiology: ?Defined diabetes med identify own type of diabetes; list 3 options for treating diabetes Healthy eating: ?Described effect of type, amount and ?timing of food on blood glucose; list 3 methods for planning meal Being active: ?State effect of exercise on blood glucose level Taking medication: ?State effect of diabetes medications on diabetes; name diabetes medications taking, action and side effects Monitoring glucose: ?Identify recommended blood glucose targets and personal target Acute complication: ?List symptoms and treatment of hyper and hypoglycemia, DKA, sick day guidelines and guidelines for severe weather or situations of crisis and diabetes supply manage Chronic complication: ?To find the relationship of blood glucose levels to long- term complications of diabetes in screening and preventative measures Lifestyle and healthy coping: ?Described lifestyle and healthy coping strategies to rule out diabetes self-management Diabetes to stress and support: ?Recognize Diabetes to stress and be able to identified support options Learning objectives: The patient was provided with verbal and written education on the following topics as outlined below. Patient has reported he is stopped using sugar in his coffee, and started Mounjaro 2.5 mg 4 weeks ago Patient questions/concerns, patient using freestyle Girish 3 to test glucose At patient's last visit average glucose was 286 mg/dL Today's visit average glucose 224 mg/dL Patient above target 57% Patient in range 41% Patient below target 2% Patient is having some overnight hypoglycemia, which he treats with high carbohydrate ice tea in the a.m. Patient is currently taking Tresiba 20 units common recommended to patient to reduce Tresiba 16 units, after 3 days if patient is still experiencing overnight hypoglycemia reduce further to 14 units Patient is also on Jardiance 25 mg daily After review Girish data patient's glucose have improved in the last week, since patient has stopped using sugar in his coffee continues with Mounjaro Discussed with patient the importance of treating hypoglycemia with 15 g of fast acting carbohydrate Hopefully reduction in Tresiba will stop morning hypoglycemia The patient met all learning objectives and was able to verbalize understanding and provide teach back of education topics discussed . The patient was provided with the opportunity to ask questions and all questions were answered. Topics covered in today?s session included: Medications (If applicable) * Name of medication? * Dosing/administration instructions? * Mechanism of action? * Potential side effects? * Potential adverse reaction and appropriate treatment? * Review onset, peak, duration Assess for concerns re: insurance coverage, cost, barriers to compliance Insulin/Injectables (If applicable) * Storage/care of insulin?? * Injection sites? * Site rotation? * Onset, peak, duration * Drawing up insulin? * Injecting insulin/other injectables? * Sharps disposal Continuous blood glucose monitoring (if applicable) Hypoglycemia and Hyperglycemia * Signs and symptoms? * Causes?? * Treatment? * Preventing hypoglycemia? * When to seek medical attention * Blood glucose targets and how you feel when your blood glucose is in and out of your target ranges. * Monitoring and knowing your A1C. * What can make blood glucose go up and down and preventing high and low blood glucose. * Review of blood sugar targets in expected goal range and outside of expected goal range. * Problem solving and preventing hyper/hypoglycemia. * Sick day management of diabetes. * Using blood sugar results in decision making process in managing diabetes. ?Patient was receptive to information provided and participated in the discussion. Asked?appropriate questions and demonstrated good understanding of the topics discussed.? ? Educational Materials: The patient was provided with the following written educational materials: Target Goal, rule of 15s handouts Smart Goal Assessment:? Pt met goal more than 50% New Smart Goal:Use rule of 15 to treat hypoglycemia Patient Response to instructions: Comprehension of Instructions: good Readiness to make changes:? action How confident they feel about making changes:fair Patient Instructions: Reduce trasiba from 20 units to 16 units Follow up with Diabetes Education nurse in 2 month Coding Level of Care Code Est Pt Level 1 (94434) Diagnoses Type 2 diabetes mellitus with hyperglycemia, with long-term current use of insulin E11.65; Z79.4 Diabetes mellitus complication status: with hyperglycemia Diabetes mellitus fern cutter insulin use: with fern cutter use
== END 2023-08-15 14:21 | disposition home or self-care (01) ==
PROVIDERS: PCP Nurse Practitioner Family; Visit Provider Registered Nurse Diabetes Educator
DX: E11.65 Type 2 diabetes mellitus with hyperglycemia (principal); Z79.4 Long term (current) use of insulin

== ENCOUNTER → 2023-08-15 13:27 | Outpatient (BNVA) | payer MEDICARE, MEDICAID, SELFPAY | PROVIDERS: PCP Nurse Practitioner Family; Visit Provider Registered Nurse Diabetes Educator | DX: E11.65 Type 2 diabetes mellitus with hyperglycemia (principal); Z79.4 Long term (current) use of insulin | CPT/HCPCS: 99211 ==

== ENCOUNTER 2023-09-19 14:22 | Outpatient (AMB) | payer MEDICARE, MEDICAID, SELFPAY ==
[2023-09-19 14:30] VITALS: BMI 30.9
--- NOTE | 2023-09-19 14:30 | MHC.AMNUTRGE ---
Intake VS Expanded 09/19/23 14:30 Height 5 ft 8 in Weight 203 lb 0.732 oz BMI 30.9 Intake Visit Reasons: T2DM/CONFIRMED Allergies No Known Allergies [No Known Allergies*] Allergy (Verified 07/13/23 15:15) HPI Nutrition Presentation Details Pt presents for MNT for T2DM Pt reports developing diarrhea with Mounjaro and is concerned about it , he reports doing better with ozempic- Message was sent to Dr. Zamora Pt reports typically having a sand in AM Meal rye bread egg in basket L: soup - tortellini soup meat or [place] sprouts D: (at work) free meals Senait steak/mashed potato/carrots dinner REg ice tea, reducing on ice coffee chips at night time yogurt - activia Reports sometimes having low blood sugar (68) if going longer than 4 hours without eating. Most Recent Diabetes Results: No Data to Display [facility] Medical History Tubular adenoma of colon Hyperlipidemia Personal history of nicotine dependence CAD (coronary artery disease) Essential hypertension Multinodular thyroid Heart murmur Vitamin D deficiency T2DM (type 2 diabetes mellitus) Mild non proliferative diabetic retinopathy Graves' disease with exophthalmos Diabetic polyneuropathy associated with type 2 diabetes mellitus detention (current) use of insulin Surgical History History of colonoscopy Family History Father HTN (hypertension) CVD (cardiovascular disease) Myocardial infarction Mother No problems noted. Maternal Grandmother Unknown family medical history Social History Housing: House Alcohol intake: never Patient Tobacco Use Status: Current everyday Tobacco user Tobacco use type: Cigarette Cigarette Packs Per Day: 1 Cigarettes Per Day: 20.0 Years Smoked: (current smoker - onset 13yo, 1ppd x 43yrs, 40pyh) e-Cigarette/Vaping Use: Never Used Second Hand Smoke Exposure: No service: No Current occupational status: disabled Current occupational exposures/hazards: No Cognitive needs: No Hearing needs: No Vision needs: No Assessment & Plan Assessment & Plan (1) T2DM (type 2 diabetes mellitus): Code(s): E11.9 - Type 2 diabetes mellitus without complications Qualifiers: Diabetes mellitus complication status: with hyperglycemia Diabetes mellitus adjunct faculty for medical terminology insulin use: with snf use Qualified Code(s): E11.65 - Type 2 diabetes mellitus with hyperglycemia; Z79.4 - adjunct faculty for medical terminology (current) use of insulin Plan: Wt: 88Kg ( 08/2023 ), 92 kg (09/2023) Est kcal needs as per MSJ:2200 (40% carb, 30% protein/fat) Est fluid needs as per 30 ml/d: 2600 Est prot per day as per 1 g/kg bw: 88 Recommend fiber intake : 8-10 g per day and gradually increase to 25-28 g per day for women and 35-38 g for men or as tolerated Recommend sodium intake per day: less than 2000 mg Educated patient on: ( R = reviewed V = verbalizes understanding N/R = needs review N/A = not applicable Food sources of carbohydrate, adequate serving sizes and its role in various health conditions: R Differences between complex carbohydrates a simple carbohydrates, role of fiber in diet: R Lean protein sources of foods: R Differences between types of fats and role in diet (mono on saturated fat fatty acids, saturated fatty acids, trans fats): N/R Food sources of sodium in salt and healthy modifications for heart health in kidney health: NR Vitamins and minerals: N/R Healthy plate method concept: R V Physical activity: Benefits a precaution: R Hypoglycemia protocol (rule of 15): N/R Dietary prevention of Hyperglycemia: R Medications: Discontinued tirzepatide Discontinued Reason: Doctor's Order 2.5 mg (0.5 mL) subcut QWEEK 4 weeks 2 mL 0RF Patient Instructions: Treat low blood sugar with 15 g of carbs (3 glucose tablets) wait 15 minutes to re check blood sugar (remember that sensor will continue to beep every 5 minutes , but it takes about 15 minutes for blood sugar to rise after having the 3 glucose tablets, if after 15 mintues your blood sugar continues to be low , less than 70 , then have 3 more glucose tablets. Have water or tea zero with the meal or when stopping at the store instead of sugar beverages have a lunch bag to carry with you Coding Level of Care Code Nutr Indiv Subseq (25426) Diagnoses Type 2 diabetes mellitus with hyperglycemia, with long-term current use of insulin E11.65; Z79.4 Diabetes mellitus complication status: with hyperglycemia Diabetes mellitus snf insulin use: with adjunct faculty for medical terminology use Time Spent (min) 30
== END 2023-09-19 15:13 | disposition home or self-care (01) ==
PROVIDERS: PCP Nurse Practitioner Family; Visit Provider Dietitian, Registered
DX: E11.65 Type 2 diabetes mellitus with hyperglycemia (principal); Z79.4 Long term (current) use of insulin

== ENCOUNTER → 2023-09-19 14:22 | Outpatient (BNVA) | payer MEDICARE, MEDICAID, SELFPAY | PROVIDERS: PCP Nurse Practitioner Family; Visit Provider Dietitian, Registered | DX: E11.65 Type 2 diabetes mellitus with hyperglycemia (principal); Z79.4 Long term (current) use of insulin | CPT/HCPCS: 97803 ==

== ENCOUNTER 2023-10-14 09:49 | Outpatient (AMB) | payer MEDICARE, MEDICAID, SELFPAY ==
[2023-10-14 10:58] VITALS: BP 134/82; PULSE 80; O2SAT 98; BMI 29.5
--- NOTE | 2023-10-14 10:58 | AM.OFFWIN_ITS ---
Intake Vital Signs 10/14/23 10:58 Height 5 ft 8 in Weight 194 lb 2 oz BMI 29.5 BP 134/82 Blood Pressure Location Lt brachial Position Sitting Pulse 80 Pulse Source Pulse Oximeter Pulse Oximetry (%) 98 Oxygen Delivery Method Room Air Intake Visit Reasons: EP, WOUND CHECK ON FINGERS Intake Note: Patient is here for wound check onleft middle and ring fingers which were cut in bus person dishwasher a week ago this Monday. Patient Tobacco Use Status: Current everyday Tobacco user Allergies No Known Allergies [No Known Allergies*] Allergy (Verified 10/14/23 11:26) Medication List - Last Reconciled 10/14/23 by Farida Larose CNP aspirin (Adult Low Dose Aspirin) 81 mg PO DAILY atorvastatin 40 mg PO BEDTIME blood sugar diagnostic (FreeStyle Lite Strips) 3times a day blood-glucose meter (FreeStyle Lite Meter kit) As directed buspirone 5 mg PO BID cholecalciferol (vitamin D3) 50 mcg PO DAILY divalproex ER 500 mg PO BID empagliflozin (Jardiance) 25 mg PO QAM gabapentin 800 mg PO TID 30 days insulin degludec (Tresiba FlexTouch U-100 insulin) 20 units (0.2 mL) subcut DAILY 30 days lisinopril 2.5 mg PO DAILY 90 days lithium carbonate 300 mg PO DAILY lithium carbonate 600 mg PO BEDTIME metformin 1,000 mg PO BID 90 days metoprolol tartrate 50 mg PO BID omega-3 fatty acids (Fish Oil Concentrate) 1 tab PO DAILY pen needle, diabetic (BD Margot 2nd Gen Pen Needle) USE TO INJECT INSULIN DAILY DIRECTED pioglitazone 30 mg PO DAILY quetiapine 400 mg PO BEDTIME semaglutide (Ozempic) 1 mg (0.75 mL) subcut QWEEK Do you need a note to return to daycare/school/sports/work: Yes HPI HPI Comments History of Present Illness Details 58-year-old male presents to walk[facility]in [facility] to have wound assessed. Patient reports injury to left middle and ring finger last week in the [facility], he was seen at a different urgent care initially and provider there used durabond to close the laceration to left middle and ring finger. He was supposed to follow up at the same urgent care, but was told they do not accept his insurance. He does have a PMH of Type 2 DM on Jardiance, and Tresiba SQ, hypertension on lisinopril, and metoprolol, and hyperlipidemia on atorvastatin. He denies fever, chills, CP, SOB, palpitations, dizziness, abdominal pain, nausea, vomiting, changes in bowels or bladder. He denies erythema, swelling around both lacerations to left middle and ring finger, and denies any drainage of lacerations. [facility] Medical History Diabetic retinopathy Tubular adenoma of colon Hyperlipidemia Personal history of nicotine dependence CAD (coronary artery disease) Essential hypertension Multinodular thyroid Heart murmur Vitamin D deficiency T2DM (type 2 diabetes mellitus) Mild non proliferative diabetic retinopathy Graves' disease with exophthalmos Diabetic polyneuropathy associated with type 2 diabetes mellitus supervisor intermediates (current) use of insulin Surgical History History of colonoscopy Family History Father HTN (hypertension) CVD (cardiovascular disease) Myocardial infarction Mother No problems noted. Maternal Grandmother Unknown family medical history Social History Housing: House Alcohol intake: never Patient Tobacco Use Status: Current everyday Tobacco user Tobacco use type: Cigarette Cigarette Packs Per Day: 1 Cigarettes Per Day: 20.0 Years Smoked: (current smoker - onset 13yo, 1ppd x 43yrs, 40pyh) e-Cigarette/Vaping Use: Never Used Second Hand Smoke Exposure: No service: No Current occupational status: disabled Current occupational exposures/hazards: No Cognitive needs: No Hearing needs: No Vision needs: No Review of Systems Const All systems reviewed & are unremarkable except as noted in HPI and below Physical Exam Vital Signs: Last Vital Signs Pulse 80 10/14/23 10:58 BP 134/82 10/14/23 10:58 Pulse Ox 98 10/14/23 10:58 Oxygen Delivery Method Room Air 10/14/23 10:58 BMI result Body Mass Index 29.5 Const General: healthy appearing and no acute distress Nutritional Appearance: well nourished Orientation/consciousness: patient oriented x3 Limitations: no limitations Resp Effort & Inspection: normal respiratory effort, no respiratory distress and not tachypneic Auscultation: clear to auscultation bilaterally Cardio Rate: regular rate Rhythm: regular rhythm Heart sounds: S1 normal heart sound present and S2 normal heart sound present Peripheral pulses: Peripheral pulses 2+ throughout GI Inspection: Yes normal to inspection Palpation (GI): Soft to palpation and nontender Auscultation: normal bowel sounds Neuro General: patient oriented x3, gait normal and moves all extremities Extrem Other: left middle and left ring finger 1 inch lacerations dry, well approximated, no erythema, swelling or drainage noted, incisions remain tender to touch. 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 Initially he was treated at another Urgent care office with the use of Durabond to close wounds, he was supposed to follow up there for re-evaluation but when he went to follow up with that urgent care he was told they do not take his insurance. Physical exam supports both lacerations appear to be healing, and no signs or symptoms of infection at this time; left middle and left ring finger 1 inch lacerations dry, well approximated, no erythema, swelling or drainage noted, incisions remain tender to touch. Due to his history of DM will treat prophylactic with doxycycline 100 mg po bid x 7 days. Re-dressed finger wounds w/ 1 piece of Xeroform gauze, and non stick 2x2. Encouraged to remove dressing to allow wounds to get air 2 x a day for the next 2 days, then may use bandaids or remain open to air. Provided a work note for 1 more week with limited heavy lifting, and may return to full duty the week following. No follow up care needed unless he develops signs or symptoms of infection; fever, erythema, swelling, or drainage from wounds or around wounds. Medications: New doxycycline monohydrate 100 mg PO BID 7 days 14 caps 0RF L02.519 - Cutaneous abscess of unspecified hand, L03.019 - Cellulitis of unspecified finger Coding Level of Care Code Est Pt Level 4 (79962) Diagnoses Encounter for re-check of laceration wound T14.8XXD
== END 2023-10-14 11:52 | disposition home or self-care (01) ==
PROVIDERS: PCP Nurse Practitioner Family; Visit Provider Nurse Practitioner Acute Care
DX: S61.213A Laceration without foreign body of left middle finger without damage to nail, initial encounter (principal); S61.215A Laceration without foreign body of left ring finger without damage to nail, initial encounter
CPT/HCPCS: 99214

== ENCOUNTER 2023-10-16 10:02 | Outpatient (AMB) | payer MEDICARE, MEDICAID, SELFPAY ==
[2023-10-16 10:04] VITALS: BP 130/84; PULSE 69; BMI 30.2
--- NOTE | 2023-10-16 10:04 | A.OFFVIS_ITS ---
Intake Vital Signs 10/16/23 10:04 Height 5 ft 8 in Weight 198 lb 6.656 oz BMI 30.2 BP 130/84 Blood Pressure Location Lt brachial Position Sitting Pulse 69 Pulse Source Monitor Intake Visit Reasons: 3 m follow up(rs) HS Accessioner Required: No Allergies No Known Allergies [No Known Allergies*] Allergy (Verified 10/16/23 10:08) Medication List - Last Reconciled 10/16/23 by DEYANIRA Cowan aspirin (Adult Low Dose Aspirin) 81 mg PO DAILY atorvastatin 40 mg PO BEDTIME blood sugar diagnostic (FreeStyle Lite Strips) 3times a day blood-glucose meter (FreeStyle Lite Meter kit) As directed buspirone 5 mg PO BID cholecalciferol (vitamin D3) 50 mcg PO DAILY divalproex ER 500 mg PO BID doxycycline monohydrate 100 mg PO BID 7 days empagliflozin (Jardiance) 25 mg PO QAM gabapentin 800 mg PO TID 30 days insulin degludec (Tresiba FlexTouch U-100 insulin) 20 units (0.2 mL) subcut DAILY 30 days lisinopril 2.5 mg PO DAILY 90 days lithium carbonate 300 mg PO DAILY lithium carbonate 600 mg PO BEDTIME metformin 1,000 mg PO BID 90 days metoprolol tartrate 50 mg PO BID omega-3 fatty acids (Fish Oil Concentrate) 1 tab PO DAILY pen needle, diabetic (BD Margot 2nd Gen Pen Needle) USE TO INJECT INSULIN DAILY DIRECTED pioglitazone 30 mg PO DAILY quetiapine 400 mg PO BEDTIME semaglutide (Ozempic) 1 mg (0.75 mL) subcut QWEEK HPI 3 m follow up(rs) HS HPI Details Jovon is a 58-year-old male with past medical history of hypertension, hyperlipidemia, diabetes, smoking, coronary artery disease, aortic sclerosis who presents for follow-up. Today he states that 3 weeks ago he had an episode of fatigue that lasted 2 days and caused him concern. He thought maybe his heart was contributing to this symptom. He has not had recurrent fatigue since then. No chest discomfort at rest or with activity. No shortness of breath, palpitations, lightheadedness, presyncope, syncope, PND, orthopnea or edema. Is taking his medications as directed. 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 Maternal Grandmother Unknown family medical history Social History Housing: House Alcohol intake: never Patient Tobacco Use Status: Current everyday Tobacco user Tobacco use type: Cigarette Cigarette Packs Per Day: 1 Cigarettes Per Day: 20.0 Years Smoked: (current smoker - onset 13yo, 1ppd x 43yrs, 40pyh) e-Cigarette/Vaping Use: Never Used Second Hand Smoke Exposure: No service: No Current occupational status: disabled Current occupational exposures/hazards: No Cognitive needs: No Hearing needs: No Vision needs: No Review of Systems Const All systems reviewed & are unremarkable except as noted in HPI and below Reports fatigue ENT Denies dizziness Card Denies chest pain, Denies chest pain at rest, Denies chest pain with activity, Denies rapid heart rate, Denies pedal edema, Denies edema, Denies leg edema, Denies lightheadedness, Denies palpitations, Denies dyspnea, Denies dyspnea on exertion and Denies orthopnea Resp Denies cough, Denies dyspnea and Denies dyspnea on exertion GI Denies hematochezia and Denies change in stool character Musc Denies abnormal gait, Denies limited range of motion, Denies muscle cramps, Denies muscle weakness, Denies numbness, Denies radiating pain into limb, Denies stiffness and Denies tingling Neuro Denies abnormal gait, Denies dizziness, Denies numbness and Denies tingling Endo Reports fatigue and Denies palpitations Physical Exam Vital Signs: Last Vital Signs Pulse 69 10/16/23 10:04 BP 130/84 10/16/23 10:04 BMI result Body Mass Index 30.2 Const General: cooperative, healthy appearing, comfortable and no acute distress Orientation/consciousness: patient oriented x3 Neck Neck: Yes normal visual inspection Resp Effort & Inspection: normal respiratory effort Auscultation: clear to auscultation bilaterally, no crackles, no rales, no rhonchi and no wheezes Cardio Jugular venous distension: no JVD Rate: regular rate Rhythm: regular rhythm Heart sounds: S1 normal heart sound present, S2 normal heart sound present, no gallops, no murmurs and no rubs Neuro General: patient oriented x3 Extrem Other: right radial cath site well healed General: Yes normal to inspection Psych Appearance: grossly normal Mental Status: mental status grossly normal Speech and movement: Normal speech and movement present Office Procedures EKG Details: Today, read by me, SR, nonspecific IVCD, rate 69, QTc 426ms [id number], Complete Assessment & Plan Assessment & Plan (1) Fatigue: Code(s): R53.83 - Other fatigue Plan: Report of having fatigue on 2 days 3 weeks ago without reoccurrence. He expresses much concern that this was related to his heart. He did not have anginal sounding symptoms along with it. Unlikely to be cardiac in nature. Will update lab work. (2) CAD (coronary artery disease): Code(s): I25.10 - Atherosclerotic heart disease of [place] coronary artery without angina pectoris Qualifiers: Associated angina: without angina Coronary Disease-Associated Artery/Lesion type: [place] artery [place] vs. transplanted heart: [place] heart Qualified Code(s): I25.10 - Atherosclerotic heart disease of [place] coronary artery without angina pectoris Plan: Newer finding of coronary artery disease. Prior lungs CT scan had shown moderate to severe coronary calcifications. He underwent a coronary CTA on 12/23/2022 showing LAD severe calcification proximal less than 50% and distal, can not exclude high-grade stenosis, left circumflex 2nd OM 60% stenosis, RCA can not exclude high-grade stenosis, focal severe stenosis of the proximal PDA. Cardiac catheterization 05/23/23 and showed significant LAD, OM1 and OM3 ostial stenosis. The cath note indicated the best way for revascularization would be coronary artery bypass grafting. Reviewed results with pt and he stated he has not be referred to cardiac surgery as of yet. He says he was told he didnt need surgery now due to no chest discomfort. At this time he continues to deny chest discomfort, shortness of breath, activity intolerance. Signs and symptoms of angina reviewed. Will continue on aspirin indefinitely. Continue atorvastatin with ideal LDL goal less than 70. Last labs 11/03/2022 showed LDL 75. Repeat lipid profile ordered. Continue Metoprolol. Need for each medication reviewed with him. He needs good diabetic control with hemoglobin A1c goal less than 7. Labs done 04/20/2023 show hemoglobin A1c 8.7. Continue usual activity as tolerated. He does report bilateral calf cramping with walking suggestive of claudication. LE arterial ultrasound done on 07/04/2023 shows bilateral atherosclerotic disease however no hemodynamically significant stenosis.. Cardiology follow up in 6 mo, sooner if needed. Emergency care if needed for symptoms. (3) S/P cardiac cath: Comment: 05/23 Mid LAD 70% stenosis, IFR .81 Ostial OM1 and OM3 with significant stenosis Code(s): Z98.890 - Other specified postprocedural states Plan: As above (4) Essential hypertension: Code(s): I10 - Essential (primary) hypertension Plan: Normal range at present. Continue current antihypertensives. The importance of good blood pressure control reviewed with him with ideal goal less than 130/85 (5) Hyperlipidemia: Code(s): E78.5 - Hyperlipidemia, unspecified Qualifiers: Hyperlipidemia type: unspecified Qualified Code(s): E78.5 - Hyperlipidemia, unspecified Plan: [place] LDL goal less than 70 in patient with diabetes and CAD. Continue Atorvastatin to improve lipid control. Repeat fasting lipids ordered. 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 Following with endocrinology (7) Claudication: Code(s): I73.9 - Peripheral vascular disease, unspecified Plan: Reported bilateral claudication. Lower extremity arterial ultrasound as above. Continue aspirin and statin Plan Time spent on chart review, documentation, interview and assessment Orders: Orders Comprehensive Met. Panel Today I25.10 - Atherosclerotic heart disease of [place] coronary artery without angina pectoris TSH reflex Free T4 Today I25.10 - Atherosclerotic heart disease of [place] coronary artery without angina pectoris CA echo transthoracic complete Today I25.10 - Atherosclerotic heart disease of [place] coronary artery without angina pectoris, I35.8 - Other nonrheumatic aortic valve disorders, R01.1 - Cardiac murmur, unspecified Complete Blood Count Auto Diff Today I25.10 - Atherosclerotic heart disease of [place] coronary artery without angina pectoris Lipid Panel Today I25.10 - Atherosclerotic heart disease of [place] coronary artery without angina pectoris Coding Level of Care Code Est Pt Level 4 (03512) Diagnoses Fatigue R53.83 Coronary artery disease involving [place] coronary artery of [place] heart without angina pectoris I25.10 Associated angina: without angina Coronary Disease-Associated Artery/Lesion type: [place] artery [place] vs. transplanted heart: [place] heart S/P cardiac cath Z98.890 Essential hypertension I10 Hyperlipidemia, unspecified hyperlipidemia type E78.5 Hyperlipidemia type: unspecified Type 2 diabetes mellitus with hyperglycemia, with long-term current use of insulin E11.65; Z79.4 Diabetes mellitus complication status: with hyperglycemia Diabetes mellitus senior living insulin use: with long chain quiller tender use Claudication I73.9 CPT Codes EKG - CPT: [id number], Complete ([id number]) Time Spent (min) 28
== END 2023-10-16 10:40 | disposition home or self-care (01) ==
PROVIDERS: PCP Nurse Practitioner Family; Visit Provider Nurse Practitioner Family
DX: R53.83 Other fatigue (principal); I25.10 Atherosclerotic heart disease of native coronary artery without angina pectoris; Z98.890 Other specified postprocedural states; I10 Essential (primary) hypertension; E78.5 Hyperlipidemia, unspecified; E11.65 Type 2 diabetes mellitus with hyperglycemia; Z79.4 Long term (current) use of insulin; I73.9 Peripheral vascular disease, unspecified
CPT/HCPCS: 93010; 99214

== ENCOUNTER → 2023-10-16 10:02 | Outpatient (BNVA) | payer MEDICARE, MEDICAID, SELFPAY | PROVIDERS: PCP Nurse Practitioner Family; Visit Provider Nurse Practitioner Family | DX: E11.65 Type 2 diabetes mellitus with hyperglycemia (principal); I25.10 Atherosclerotic heart disease of native coronary artery without angina pectoris; I10 Essential (primary) hypertension; I73.9 Peripheral vascular disease, unspecified; R53.83 Other fatigue; E78.5 Hyperlipidemia, unspecified; Z79.4 Long term (current) use of insulin; Z98.890 Other specified postprocedural states | CPT/HCPCS: 93005; 99211; 99212 ==

== ENCOUNTER 2023-10-16 14:26 | Outpatient (AMB) | payer MEDICARE, MEDICAID, SELFPAY ==
--- NOTE | 2023-10-16 14:52 | A.OFFVIS_ITS ---
Intake Intake Visit Reasons: dm/LVM [employer] Required: No Accompanied by: Self / Same As Patient Allergies No Known Allergies [No Known Allergies*] Allergy (Verified 10/16/23 10:08) HPI Comprehensive Diabetes Asmnt Most Recent Diabetes Results: Microalb/Creat Ratio 6.9 ug/mg cr 11/03/22 Cholesterol 138 mg/dL 11/03/22 HDL Cholesterol 42 mg/dL 11/03/22 Triglycerides 92 mg/dL 11/03/22 Creatinine 0.72 mg/dL (0.5-1.4) 05/10/23 Blood Urea Nitrogen 12 mg/dL (9-16) 05/10/23 Sodium 133 mmol/L (135-145) L 05/10/23 Potassium 4.6 mmol/L (3.3-5.1) 05/10/23 Chloride 101 mmol/L (96-108) 05/10/23 Carbon Dioxide 23 mmol/L (22-29) 05/10/23 Calcium 9.1 mg/dL (8.4-10.2) 05/10/23 AST 11 U/L (5-37) 01/31/23 ALT 12 U/L (0-40) 01/31/23 Total Protein 6.4 g/dL (6.5-8.0) L 01/31/23 Albumin 3.7 g/dL (3.5-5.0) 01/31/23 [facility] Medical History Diabetic retinopathy Tubular adenoma of colon Hyperlipidemia Personal history of nicotine dependence CAD (coronary artery disease) Essential hypertension Multinodular thyroid Heart murmur Vitamin D deficiency T2DM (type 2 diabetes mellitus) 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 Maternal Grandmother Unknown family medical history Social History Housing: House Alcohol intake: never Patient Tobacco Use Status: Current everyday Tobacco user Tobacco use type: Cigarette Cigarette Packs Per Day: 1 Cigarettes Per Day: 20.0 Years Smoked: (current smoker - onset 13yo, 1ppd x 43yrs, 40pyh) e-Cigarette/Vaping Use: Never Used Second Hand Smoke Exposure: No service: No Current occupational status: disabled Current occupational exposures/hazards: No Cognitive needs: No Hearing needs: No Vision needs: No Assessment & Plan Assessment & Plan (1) T2DM (type 2 diabetes mellitus): Code(s): E11.9 - Type 2 diabetes mellitus without complications Qualifiers: 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 2= needs review? 3= comprehend keep point? 4= demonstrates understanding/ competent? NC= Not Covered Topics Learning Objective: Initial visit Initial or post srvc Initial or post srvc Initial or post srvc Initial or post srvc Initial or post srvc Post srvc Comments Pre Edu-assessment/plan Outcome or reassess Outcome or reassess Outcome or reassess Outcome or reassess Outcome or reassess Outcome or reassess Diabetes pathophysiology 1 3 Healthy eating 1 2 Being active 1 Taking medication 2 3 Monitoring glucose 2 3 Acute complication 1 3 Chronic complicated 1 3 Lifestyle and healthy coping 2 3 Diabetes distress in support 2 ?Diabetes pathophysiology: ?Defined diabetes med identify own type of diabetes; list 3 options for treating diabetes Healthy eating: ?Described effect of type, amount and ?timing of food on blood glucose; list 3 methods for planning meal Being active: ?State effect of exercise on blood glucose level Taking medication: ?State effect of diabetes medications on diabetes; name diabetes medications taking, action and side effects Monitoring glucose: ?Identify recommended blood glucose targets and personal target Acute complication: ?List symptoms and treatment of hyper and hypoglycemia, DKA, sick day guidelines and guidelines for severe weather or situations of crisis and diabetes supply manage Chronic complication: ?To find the relationship of blood glucose levels to long- term complications of diabetes in screening and preventative measures Lifestyle and healthy coping: ?Described lifestyle and healthy coping strategies to rule out diabetes self-management Diabetes to stress and support: ?Recognize Diabetes to stress and be able to identified support options Learning objectives: Learning objectives: The patient was provided with verbal and written education on the following topics as outlined below. The patient met all learning objectives and was able to verbalize understanding and provide teach back of education topics discussed . The patient was provided with the opportunity to ask questions and all questions were answered. Patient Assessment Assess patient education level/literacy/barriers Patient questions/concerns, patient average glucose for the past 7 days 194 mg/dL Patient above target 40% Patient at target 60% Patient below target 0% Patient reports he has stopped drinking hypo carbohydrate beverages for several days but then in the past 3 days went back to drinking mountain dew and Dr. Gonzalez er. Showed patient on CGM report a significant difference between the days that he is drinking high carbohydrate beverages verses water or sugar free beverages Exercise Medical clearance Effect of exercise on blood sugar Start slowly and gradually increase pace/duration over time Goal amount of exercise Checking blood glucose/have a source of carbs with you Medications (If applicable) * Name of medication * Dosing/administration instructions * Mechanism of action * Potential side effects * Potential adverse reaction and appropriate treatment * Review onset, peak, duration Assess for concerns re: insurance coverage, cost, barriers to compliance Insulin/Injectables (If applicable) * Storage/care of insulin * Injection sites * Site rotation * Onset, peak, duration * Drawing up insulin * Injecting insulin/other injectables * Sharps disposal Continuous blood glucose monitoring (if applicable) Hypoglycemia and Hyperglycemia * Signs and symptoms * Causes * Treatment * Preventing hypoglycemia * When to seek medical attention Medical alert bracelet Lifestyle * Work * Travel * Stress management * Problem solving Know your goals * A1C * Blood sugar targets * Blood pressure * Cholesterol/LDL Urine microalbumin Smart Goal Assessment:Use rule of 15 to treat hypoglycemia Pt met goal:Pt All of the time/100%: New Goal:? Patient will reduce high carbohydrate beverages Educational Materials: The patient was provided with the following written educational materials: Patient Response to instructions: Comprehension of Instructions: good Readiness to make changes: action How confident they feel about making changes: fair Patient Instructions: Include regular daily activity. ADA recommends 30 minutes of exercise 5 days a week. Weight loss talk to PCP or Manager Hospitality before starting new plan. Test blood sugar as directed; Fasting and 2hpp largest meal. Watch trends in results. Utilize results and to assess how food, physical activity and medications affect blood sugar results. Bring glucometer or CGM to next visit. Be knowledgeable about diabetes medication, its action, side effects, efficacy, toxicity, prescribed dosage, appropriate timing and frequency of administration, effect of missed and delayed doses and instructions for storage, travel and safety. Problem solving techniques to monitor hypo/hyperglycemia episodes and treatments. Reduce risk reduction behaviors, smoking cessation, regular eye, foot and dental examinations. 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
== END 2023-10-16 15:30 | disposition home or self-care (01) ==
PROVIDERS: PCP Nurse Practitioner Family; Visit Provider Registered Nurse Diabetes Educator
DX: E11.65 Type 2 diabetes mellitus with hyperglycemia (principal); Z79.4 Long term (current) use of insulin

== ENCOUNTER 2023-11-03 08:43 | Outpatient (REF) | payer MEDICARE, MEDICAID, SELFPAY ==
[2023-11-03 08:52] LABS: MANUAL DIFF FLAG NO
[2023-11-03 09:14] LABS: Basophils Percent Auto 0.4 % (0-2); Eosinophils Absolute Auto 0.2 X10*3/uL (0.0-0.4); Eosinophils Percent Auto 2.7 % (0-4); Hematocrit 46.8 % (42.0-52.0); Hemoglobin 15.4 g/dl (14.0-18.0); Imm Gran Abs Auto 0.01 X10*3/uL (0.00-0.03); Imm Gran Pct Auto 0.2 % (0.0-0.4); Lymphocytes Absolute Auto 1.3 X10*3/uL (1.2-4.9); Lymphocytes Percent Auto 23.8 % (20-40); Mean Corpuscular HGB Conc 32.9 g/dl (31.0-36.0); Mean Corpuscular Volume 97.1 fL (80.0-98.0); Mean Platelet Volume 9.3 fL (9.4-12.4); Monocytes Absolute Auto 0.6 X10*3/uL (0.1-1.2); Neutrophils Absolute Auto 3.4 x10*3/uL (2.0-8.3); Neutrophils Percent Auto 61.9 % (45-73); Platelet Count 230 X10*3/uL (160-400); Red Blood Count 4.82 X10*6/uL (4.60-5.80); Red Cell Distribution Width 13.4 % (11.0-16.0); White Blood Count 5.5 X10*3/uL (4.8-10.8)
[2023-11-03 10:06] LABS: Alanine Aminotransferase 12 U/L (0-40); Albumin Level 3.7 g/dL (3.5-5.0); Alkaline Phosphatase 65 U/L (39-117); Anion Gap 12 (12-20); Aspartate Amino Transferase 12 U/L (5-37); Bilirubin Total 0.2 mg/dL (0.0-1.0); Blood Urea Nitrogen 13 mg/dL (9-16); Calcium 9.3 mg/dL (8.4-10.2); Carbon Dioxide 27 mmol/L (22-29); Chloride 105 mmol/L (96-108); Cholesterol 147 mg/dL (<200); Estimated Glomerular Filt Rate > 60; Glucose Random 169 mg/dL (60-115); HDL Cholesterol 63 mg/dL (>40); LDL Cholesterol Calculated 72 mg/dL (<100); Potassium 4.5 mmol/L (3.3-5.1); Sodium 139 mmol/L (135-145); Total Protein 6.5 g/dL (6.5-8.0); Triglycerides 62 mg/dL (<150)
[2023-11-03 10:22] LABS: TSH reflex Free T4 0.84 uIU/mL (0.32-4.0)
== END 2023-11-03 08:44 | disposition home or self-care (01) ==
LOC: HO.LAB 08:43
PROVIDERS: PCP Nurse Practitioner Family; Visit Provider Nurse Practitioner Family
DX: I25.10 Atherosclerotic heart disease of native coronary artery without angina pectoris (principal)
CPT/HCPCS: 36415; 80053; 80061; 84443; 85025

== ENCOUNTER → 2023-11-06 14:53 | Outpatient (REF) | payer MEDICARE, MEDICAID, SELFPAY ==
--- NOTE | 2023-11-06 14:56 | CA_ITS ---
Transthoracic Echocardiogram Patient (Last, First, Middle): Jovon Harmon M Gender: Male Date of : 1965 Age: 58 Procedure Date: 11/06/2023 Procedure Type: Transthoracic Echocardiogram Location: OP Height: 175.26 cm Weight: 90.72 kg BSA: 2.07 m2 Heart Rate: bpm BP: 124 / 80 mmHg Hadoop Application Developer: NOLA Referring MD: Monalisa Rodriguez NP-Padmini Boiler Control Room Operator: Kennedy Mccauley MD Symptoms: I25.10 - Atherosclerotic heart disease of [place] coronary artery without... Study Quality: Adequate ECG Rhythm: Sinus Conclusions: - 1. Normal LV ejection fraction of 60 65% with moderate LVH with grade 1 diastolic dysfunction 2. Mildly dilated left atrium 3. Normal cardiac valvular Doppler next 4. Normal RV systolic pressure 5. Mildly dilated ascending aorta at 3.8 cm 6. No pericardial effusion Findings Left Ventricle Normal left ventricular size and systolic function. There is moderately increased left ventricular wall thickness. The visually estimated ejection fraction is between 60-65%. Spectral Doppler is indicative of an impaired relaxation filling pattern. E/E prime ratio is <8, consistent with normal filling pressures. Evidence suggests grade I (mild) diastolic dysfunction. Right Ventricle Normal right ventricular cavity size and systolic function. Atria The left atrium is mildly dilated. There is no evidence of interatrial shunt. The right atrium is normal in size. Aortic Valve Normal aortic valve structure and function. There is no aortic valve stenosis. There is no aortic valve regurgitation. Mitral Valve Normal mitral valve structure and function. There is trace mitral valve regurgitation. There is no mitral valve stenosis. Pulmonic Valve The pulmonic valve is likely normal. Tricuspid Valve Normal tricuspid valve structure. There is trace tricuspid valve regurgitation. The right ventricular systolic pressure is normal. The right ventricular systolic pressure is 15 mmHg. Normal right atrial pressure. There is no evidence of pulmonary hypertension. Great Vessels The pulmonary artery was not well visualized. There is mild dilatation of the ascending aorta measuring 3.80 cm. Venous The inferior vena cava is normal in size and collapses greater than 50% with inspiration. Pericardium/Pleural There is no evidence of pericardial effusion. Prior Study Comparison Changes noted compared to prior study dated: 11/12/2021. LVH noted Measurements 2D Linear Measurements IVSd: 1.56 0.6-0.9/0.6-1.0 cm LVIDd: 3.90 3.9-5.3/4.2-5.9 cm LVIDd Index: 1.88 2.4-3.2/2.2-3.1 cm/m2 LVIDs: 2.60 2.0-3.6 cm LVPWd: 1.35 0.7-1.1 cm Ao Root: 3.20 2.1-3.5 cm LA Diam: 3.30 2.7-3.8/3.0-4.0 cm LAIDs Index: 1.59 1.5-2.3 cm/m2 LV Mass: 266.76 67-162/88-224 g LV Mass Index: 128.87 43-95/49-115 g/m2 LVOT Diam: 2.40 3.0+(-)1.3 cm 2D Systolic Function EF 4C: 67.40 >55% EF 2C: 61.30 >55% EF BiP: 63.50 >55% Mitral Valve MV Pk E: 0.70 MV PK A: 0.72 MV Decel Time: 198.00 E/A: 1.00 E'Lateral: 8.05 E'Medial: 8.81 E/E' Med: 8.00 E/E' Lat: 8.70 PHT: 58.00 MVA PHT: 3.79 Decel Mckean: 3.54 Aortic Valve AoV Pk López: 1.46 AoV Mn López: 1.00 AoV VTI: 0.27 AoV Pk Grad: 9.00 Aov Mn Grad: 5.00 KUN Cont.VTI: 3.63 LVOT LVOT Pk López: 1.06 LVOT Mn López: 0.68 LVOT VTI: 0.22 LVOT Pk Grad: 4.00 LVOT Mn Grad: 2.00 LVOT Diam: 2.40 LVOT Area: 4.52 Diastolic Function MV Pk E: 0.70 MV Pk A: 0.72 E/A: 1.00 E'Medial: 8.81 E/E' Med: 8.00 E' Laterial: 8.05 E/E' Lat: 8.70 Right Ventricle TAPSE (mm): 31.00 TVS' López: 13.00 Tricuspid Valve TR Pk López: 1.75 TR Pk Grad: 12.00 RA Press: 3.00 RVSP: 15.00 Great Vessels Aorta Ao Root-2D: 3.20 2.0-3.7 cm Ao Asc: 3.80 2.1-3.4 cm Pulmonary Valve PV Pk López: 1.10 Peak PV Grad: 5.00 Updated in Other Vendor System with Status of Final Kennedy Mccauley MD electronically signed on 11/07/2023 12:40:57 PM with status of Final
== END ==
LOC: HO.CARD 14:53
PROVIDERS: PCP Nurse Practitioner Family; Visit Provider Nurse Practitioner Family
DX: I25.10 Atherosclerotic heart disease of native coronary artery without angina pectoris (principal); R01.1 Cardiac murmur, unspecified; I35.8 Other nonrheumatic aortic valve disorders
CPT/HCPCS: 93306

== ENCOUNTER → 2023-11-06 14:56 | Outpatient (BNV) | payer MEDICARE, MEDICAID, SELFPAY | PROVIDERS: PCP Nurse Practitioner Family; Visit Provider Internal Medicine Cardiovascular Disease | DX: I25.10 Atherosclerotic heart disease of native coronary artery without angina pectoris (principal) | CPT/HCPCS: 93306 ==

== ENCOUNTER 2023-11-21 14:54 | Outpatient (AMB) | payer MEDICARE, MEDICAID, SELFPAY ==
[2023-11-21 15:00] VITALS: BP 106/64; PULSE 66; BMI 29.7
--- NOTE | 2023-11-21 15:00 | MHC.OFFVIS ---
Intake Vital Signs 11/21/23 15:00 Height 5 ft 8 in Weight 195 lb 5.273 oz BMI 29.7 BP 106/64 Blood Pressure Location Lt brachial Position Sitting Pulse 66 Pulse Source Pulse Oximeter Intake Visit Reasons: dm-lvm Intake Note: Patient present today to follow up on Type 2 Diabetes Mellitus. Patient receives DME supplies through: [employer] Last Diabetic Eye exam: 10/11/2023 [facility] Last Podiatry Visit: Doesn't have one Random Glucose: 141 mg/dl HgA1C: 7.8% Exercise Science Instructor Required: No Accompanied by: Self / Same As Patient Allergies No Known Allergies [No Known Allergies*] Allergy (Verified 11/21/23 15:05) Medication List - Last Reconciled 11/21/23 by Reyes Kate MD aspirin (Adult Low Dose Aspirin) 81 mg PO DAILY atorvastatin 40 mg PO BEDTIME blood sugar diagnostic (FreeStyle Lite Strips) 3times a day blood-glucose meter (FreeStyle Lite Meter kit) As directed buspirone 5 mg PO BID cholecalciferol (vitamin D3) 50 mcg PO DAILY divalproex ER 500 mg PO BID doxycycline monohydrate 100 mg PO BID 7 days empagliflozin (Jardiance) 25 mg PO QAM gabapentin 800 mg PO TID 30 days lisinopril 2.5 mg PO DAILY 90 days lithium carbonate 300 mg PO DAILY lithium carbonate 600 mg PO BEDTIME metformin 1,000 mg PO BID 90 days metoprolol tartrate 50 mg PO BID omega-3 fatty acids (Fish Oil Concentrate) 1 tab PO DAILY pen needle, diabetic (BD Margot 2nd Gen Pen Needle) USE TO INJECT INSULIN DAILY DIRECTED pioglitazone 30 mg PO DAILY quetiapine 400 mg PO BEDTIME semaglutide (Ozempic) 1 mg (0.75 mL) subcut QWEEK Tresiba FlexTouch U-100 (insulin degludec) 20 units (0.2 mL) subcut DAILY NS HPI HPI Comments History of Present Illness Details 57 YO M with PMHx T2DM and Grave's Disease who is seen in F/U for the same. 1) T2DM: Initially diagnosed with T2DM in his 40's. Was initially started on treatment with Metformin. He has trialed and failed Trulicity and Bydureon. Current regimen Metformin 1000 mg PO BID, Pioglitazone 30 mg PO daily, Jardiance 25 mg PO daily, Ozempic 1 mg once a week and Tresiba 12 units daily. Girish download shows she is using the sensor 97% of the time. Average glucose is 190 with G mi of 7.9% and variability 37.4%. 54% range with 29% hyperglycemia and 17% very hyperglycemic and no hypoglycemia. Pattern shows post-prandial elevation in blood sugar after breakfast Rare lows Has eyes checked yearly, last eye exam last yr , has retinopathy.. Needs to make appt Has neuropathy, uses Gabapentin daily. Has nephropathy, on Lisinopril 2.5 mg PO daily. UAC WNL as measured on 12/24/2020. Has HLD, on Pravastatin 80 mg PO daily. Last LDL 72 04/01/2022. Denies CAD. Diet: Eats a balanced diet Weight: Stable 2) Grave's Disease: Has a history of Grave's disease diagnosed in 2014. He did not undergo a thorough workup at that time. He had positive TSI and TPO antibodies. Thyroid uptake and scan revealed mildly increased uptake at 24 hours at 30.2%. No pattern was given. This was completed in 2014. After our initial consultation we stopped his Methimazole, and labs were repeated 2 weeks later. He was able to maintain euthyroidism indicating likely remission. Antibodies were reassessed with negative TSI and TRAB antibodies. TPO and TG antibodies were positive. He did have an US completed which revealed multiple nodules bilaterally. He underwent FNA biopsy 03/17/2022 of his RMP 1.5 cm thyroid nodule and his LUP 1.3 cm thyroid nodule. Results as follows: RMP 1.5 cm thyroid nodule - atypia of undetermined significance (bethesda category III), affirma benign LUP 1.3 cm thyroid nodule - atypia of undetermined significance (bethesda category III), affirma benign He has Grave's ophthalmopathy. He reports feeling well today. US Thyroid: 08/27/2021 FINDINGS: ? SIZE: Measurements of the thyroid lobes and nodules are given in sagittal, anteroposterior and transverse dimensions respectively. Right Thyroid Lobe: 6.83 x 3.19 x 2.74 cm, volume 31.2 mL. Parenchyma: The gland echotexture is homogeneous. Thyroid vascularity is normal. Left Thyroid Lobe: 6.69 x 3.18 x 3.22 cm, volume 35.9 mL. Parenchyma: The gland echotexture is heterogeneous. Thyroid vascularity is increased. Isthmus: 1.08 cm in maximum AP dimension. There are multiple thyroid nodules. The largest nodules are measured. Estimated total number of nodules greater than or equal to 1 cm: 2. Core Machine Tender nodules are described as follows: 1. Location: Right mid. ?? ? Size: 0.62 x 0.55 x 0.71 cm, volume 0.13 mL. ?? ? Nodule characteristics: ?? ? Composition: Solid (2). ?? ? Echogenicity: Hypoechoic (2). ?? ? Shape: Not taller than wide (0). ?? ? Margins: Smooth (0). ?? ? Echogenic Foci: None (0). ?? ? ACR TI-RADS total points: 4 ?? ? ACR TI-RADS category: 4 2. Location: Right mid. ?? ? Size: 1.5 x 0.90 x 1.4 cm, volume 0.93 mL. ?? ? Nodule characteristics: ?? ? Composition: Solid (2). ?? ? Echogenicity: Isoechoic (1). ?? ? Shape: Not taller than wide (0). ?? ? Margins: Smooth (0). ?? ? Echogenic Foci: None (0). ?? ? ACR TI-RADS total points: 3 ?? ? ACR TI-RADS category: 3 3. Location: Left superior. ?? ? Size: 1.3 x 0.90 x 1.2 cm, volume 0.80 mL. ?? ? Nodule characteristics: ?? ? Composition: Solid/almost completely solid (2). ?? ? Echogenicity: Isoechoic (1). ?? ? Shape: Not taller than wide (0). ?? ? Margins: Smooth (0). ?? ? Echogenic Foci: Punctate echogenic foci (3). ?? ? ACR TI-RADS total points: 6 ?? ? ACR TI-RADS category: 4 4. Location: Left superior. ?? ? Size: 0.60 x 0.42 x 0.52 cm, volume 0.07 mL. ?? ? Nodule characteristics: ?? ? Composition: Spongiform (0). ?? ? Echogenicity: Anechoic (0). ?? ? Shape: Not taller than wide (0). ?? ? Margins: Smooth (0). ?? ? Echogenic Foci: None (0). ?? ? ACR TI-RADS total points: 0 ?? ? ACR TI-RADS category: 1 5.? Location: Left mid. ?? ? Size: 0.60 x 0.55 x 0.60 cm, volume 0.09 mL. ?? ? Nodule characteristics: ?? ? Composition: Cystic(0). ?? ? ACR TI-RADS total points: 0 ?? ? ACR TI-RADS category: 1 NODES: No lymphadenopathy is seen in the tissue surrounding the thyroid gland. 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 Maternal Grandmother Unknown family medical history Social History Housing: House Alcohol intake: never Patient Tobacco Use Status: Current everyday Tobacco user Tobacco use type: Cigarette Cigarette Packs Per Day: 1 Cigarettes Per Day: 20.0 Years Smoked: (current smoker - onset 13yo, 1ppd x 43yrs, 40pyh) e-Cigarette/Vaping Use: Never Used Second Hand Smoke Exposure: No service: No Current occupational status: disabled Current occupational exposures/hazards: No Cognitive needs: No Hearing needs: No Vision needs: No Physical Exam Vital Signs: Last Vital Signs Pulse 66 11/21/23 15:00 BP 106/64 11/21/23 15:00 BMI result Body Mass Index 29.7 Absence of Cushingoid features. Absence of acromegalic features. Neck exam reveals enlarged in l size thyroid about 30 gms. Thyroid is nodular to palpation. No carotid bruits present. Lungs CTA. Heart S1 S2, Reg R/R. No M/R/ G. Skin exam reveals absence of vitiligo or acanthosis nigricans. Abdominal exam reveals Soft NT/ND with NA BS. No organomegaly present. There is the presence of bilateral prognosis Neck Other: . Extrem Other: Visual exam of foot performed. No ulcerations or open lesions. No onchomycosis, no callouses.Pulses 2 + distally Sensation intact to monofilament exam. Vibratory sensation sensed is decreased with 128 Hz tuning fork Results AMB Hemoglobin A1c AMB Hemoglobin A1c 7.8 % Last Edit by JACQUIE Fuentes on 11/21/23 15:53 Results Reviewed Results Reviewed: Laboratory Last Values Glucose (Clinic) 141 mg/dL (60-115) H 11/21/23 15:07 Assessment & Plan Assessment & Plan (1) T2DM (type 2 diabetes mellitus): Code(s): E11.9 - Type 2 diabetes mellitus without complications Qualifiers: Diabetes mellitus mcfp insulin use: with mcfp use Diabetes mellitus complication status: with hyperglycemia Qualified Code(s): E11.65 - Type 2 diabetes mellitus with hyperglycemia; 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 Plan is increase the Ozempic to 2 mg Q weekly. Patient should follow up with the special education paraeducator. If he is still having post-breakfast hyperglycemia, we will need to initiate prandial insulin namely about 6 units of Humalog before breakfast Will check microalbumin to creatinine ratio (2) Graves' disease with exophthalmos: Code(s): E05.00 - Thyrotoxicosis with diffuse goiter without thyrotoxic crisis or storm Plan: Currently in remission. Appears to be clinically euthyroid. 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
[2023-11-21 15:11] LABS: Glucose, Whole Blood 141 mg/dL (60-115)
== END 2023-11-21 15:49 | disposition home or self-care (01) ==
PROVIDERS: PCP Nurse Practitioner Family; Visit Provider Internal Medicine Endocrinology, Diabetes & Metabolism
DX: E11.65 Type 2 diabetes mellitus with hyperglycemia (principal); Z79.4 Long term (current) use of insulin; E05.00 Thyrotoxicosis with diffuse goiter without thyrotoxic crisis or storm; Z13.9 Encounter for screening, unspecified
CPT/HCPCS: 99214

== ENCOUNTER → 2023-11-21 14:54 | Outpatient (BNVA) | payer MEDICARE, MEDICAID, SELFPAY | PROVIDERS: PCP Nurse Practitioner Family; Visit Provider Internal Medicine Endocrinology, Diabetes & Metabolism | DX: E11.65 Type 2 diabetes mellitus with hyperglycemia (principal); Z79.4 Long term (current) use of insulin; E05.00 Thyrotoxicosis with diffuse goiter without thyrotoxic crisis or storm | CPT/HCPCS: 82947; 83036; 99212 ==

== ENCOUNTER 2023-12-06 08:42 | Outpatient (REF) | payer MEDICARE, MEDICAID, SELFPAY ==
[2023-12-06 11:30] LABS: Calcium 8.9 mg/dL (8.4-10.2); Estimated Glomerular Filt Rate > 60; Glucose Random 262 mg/dL (60-115)
[2023-12-06 11:33] LABS: Lithium 0.48 mmol/L (0.60-1.20)
== END 2023-12-06 08:43 | disposition home or self-care (01) ==
LOC: HO.HMGCLDS 08:42
PROVIDERS: Visit Provider Registered Nurse Psychiatric/Mental Health, Adult
DX: F31.9 Bipolar disorder, unspecified (principal)
CPT/HCPCS: 36415; 80048; 80178

== ENCOUNTER 2023-12-18 13:53 | Outpatient (AMB) | payer MEDICARE, MEDICAID, SELFPAY ==
--- NOTE | 2023-12-18 14:41 | A.OFFVIS_ITS ---
Intake Intake Visit Reasons: DM 30 min/CONFIRMED Vinyl Dipper Required: No Accompanied by: Self / Same As Patient Allergies No Known Allergies [No Known Allergies*] Allergy (Verified 11/21/23 15:05) HPI Comprehensive Diabetes Asmnt Most Recent Diabetes Results: Microalb/Creat Ratio 6.9 ug/mg cr 11/03/22 Cholesterol 147 mg/dL (<200) 11/03/23 HDL Cholesterol 63 mg/dL (>40) 11/03/23 Triglycerides 62 mg/dL (<150) 11/03/23 Creatinine 0.66 mg/dL (0.5-1.4) 12/06/23 Blood Urea Nitrogen 12 mg/dL (9-16) 12/06/23 Sodium 137 mmol/L (135-145) 12/06/23 Potassium 4.5 mmol/L (3.3-5.1) 12/06/23 Chloride 104 mmol/L (96-108) 12/06/23 Carbon Dioxide 24 mmol/L (22-29) 12/06/23 Calcium 8.9 mg/dL (8.4-10.2) 12/06/23 AST 12 U/L (5-37) 11/03/23 ALT 12 U/L (0-40) 11/03/23 Total Protein 6.5 g/dL (6.5-8.0) 11/03/23 Albumin 3.7 g/dL (3.5-5.0) 11/03/23 [facility] Medical History Diabetic retinopathy Tubular adenoma of colon Hyperlipidemia Personal history of nicotine dependence CAD (coronary artery disease) Essential hypertension Multinodular thyroid Heart murmur Vitamin D deficiency T2DM (type 2 diabetes mellitus) 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 Maternal Grandmother Unknown family medical history Social History Housing: House Alcohol intake: never Patient Tobacco Use Status: Current everyday Tobacco user Tobacco use type: Cigarette Cigarette Packs Per Day: 1 Cigarettes Per Day: 20.0 Years Smoked: (current smoker - onset 13yo, 1ppd x 43yrs, 40pyh) e-Cigarette/Vaping Use: Never Used Second Hand Smoke Exposure: No service: No Current occupational status: disabled Current occupational exposures/hazards: No Cognitive needs: No Hearing needs: No Vision needs: No Assessment & Plan Assessment & Plan (1) T2DM (type 2 diabetes mellitus): Code(s): E11.9 - Type 2 diabetes mellitus without complications Qualifiers: Diabetes mellitus termite technician insulin use: with termite technician use Diabetes mellitus complication status: with hyperglycemia Qualified Code(s): E11.65 - Type 2 diabetes mellitus with hyperglycemia; Z79.4 - senior care (current) use of insulin Plan: Personal Continuous Glucose Monitor: Patients CGM information reviewed Reviewed patient's sensor data: Hypoglycemia: ? 0% Hyperglycemia:? 49% Time in Range:? 51% Average glucose for the last 2 weeks? 193 mg/dL Patient is having some overnight hypoglycemia since increasing Ozempic to 2 mg weekly Suggested to patient to drop Tresiba from 12 units to 10 units daily If overnight hypoglycemia continues contact nutrition educator Patient's A1c has improved to 7.8% on 11/21/2023, from 9.6% in July 2023 Patient is still struggling to make low carb beverage choices. At last visit with Dr. Kate, Dr. Kate noted that patient may need to start prandial insulin Discussed insulin action of Humalog, and Tresiba Discussed with patient the importance of controlling glucose levels to prevent the risk of complications from diabetes At this time patient does not want to add Humalog before meals, recommended to patient he discuss alternatives to high carb beverages at his appointment on 12/25/[address] Reviewed how to interpret trend arrows Reminded patient that to check finger sticks if symptoms do not match sensor reading. Discussed lag time between finger stick and sensor data.? Patient able to insert sensor independently at home without issue.? Patient Instructions: Patient will follow-up with Diabetes Education nurse in 4 months Coding Level of Care Code Est Pt Level 1 (32005) Diagnoses Type 2 diabetes mellitus with hyperglycemia, with long-term current use of insulin E11.65; Z79.4 Diabetes mellitus termite technician insulin use: with correction use Diabetes mellitus complication status: with hyperglycemia
== END 2023-12-18 14:50 | disposition home or self-care (01) ==
PROVIDERS: PCP Nurse Practitioner Family; Visit Provider Registered Nurse Diabetes Educator
DX: E11.65 Type 2 diabetes mellitus with hyperglycemia (principal); Z79.4 Long term (current) use of insulin

== ENCOUNTER → 2023-12-18 13:53 | Outpatient (BNVA) | payer MEDICARE, MEDICAID, SELFPAY | PROVIDERS: PCP Nurse Practitioner Family; Visit Provider Registered Nurse Diabetes Educator | DX: E11.65 Type 2 diabetes mellitus with hyperglycemia (principal); Z79.4 Long term (current) use of insulin | CPT/HCPCS: 99211 ==

== ENCOUNTER 2024-01-10 14:00 | Outpatient (AMB) | payer MEDICARE, MEDICAID, SELFPAY ==
[2024-01-10 14:04] VITALS: BMI 30.7
--- NOTE | 2024-01-10 14:04 | A.OFFVIS_ITS ---
VS Expanded 01/10/24 14:04 Height 5 ft 8 in Weight 202 lb 2.622 oz BMI 30.7 Intake Visit Reasons: T2DM Allergies No Known Allergies [No Known Allergies*] Allergy (Verified 11/21/23 15:05) Nutrition Presentation Details: Pt presents for MNT f/u for T2DM Pt reports having 2-3 meals/day , admits to choosing beverages with sugar - was choosing beverages without sugar in the past Reports having 16 oz of reg soda/beverages 3-4 times a day B: pastry and reg ice tea L/D: salmon/potato/green beans , soda r snack: fruits or chips physical activity: daily life activities 14 d bg average at 250 mg/dl BS Monitoring Most Recent Diabetes Results: Cholesterol 147 mg/dL (<200) 11/03/23 HDL Cholesterol 63 mg/dL (>40) 11/03/23 Triglycerides 62 mg/dL (<150) 11/03/23 Creatinine 0.66 mg/dL (0.5-1.4) 12/06/23 Blood Urea Nitrogen 12 mg/dL (9-16) 12/06/23 Sodium 137 mmol/L (135-145) 12/06/23 Potassium 4.5 mmol/L (3.3-5.1) 12/06/23 Chloride 104 mmol/L (96-108) 12/06/23 Carbon Dioxide 24 mmol/L (22-29) 12/06/23 Calcium 8.9 mg/dL (8.4-10.2) 12/06/23 AST 12 U/L (5-37) 11/03/23 ALT 12 U/L (0-40) 11/03/23 Total Protein 6.5 g/dL (6.5-8.0) 11/03/23 Albumin 3.7 g/dL (3.5-5.0) 11/03/23 [facility] Medical History Diabetic retinopathy Tubular adenoma of colon Hyperlipidemia Personal history of nicotine dependence CAD (coronary artery disease) Essential hypertension Multinodular thyroid Heart murmur Vitamin D deficiency T2DM (type 2 diabetes mellitus) 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 Maternal Grandmother Unknown family medical history Social History Housing: House Alcohol intake: never Patient Tobacco Use Status: Current everyday Tobacco user Tobacco use type: Cigarette Cigarette Packs Per Day: 1 Cigarettes Per Day: 20.0 Years Smoked: (current smoker - onset 13yo, 1ppd x 43yrs, 40pyh) e-Cigarette/Vaping Use: Never Used Second Hand Smoke Exposure: No service: No Current occupational status: disabled Current occupational exposures/hazards: No Cognitive needs: No Hearing needs: No Vision needs: No Assessment & Plan Assessment & Plan (1) T2DM (type 2 diabetes mellitus): Code(s): E11.9 - Type 2 diabetes mellitus without complications Category: Medical Qualifiers: Diabetes mellitus complication status: with hyperglycemia Diabetes mellitus detention insulin use: with assistant terminal manager use Qualified Code(s): E11.65 - Type 2 diabetes mellitus with hyperglycemia; Z79.4 - residential (current) use of insulin Plan: Wt: 88Kg ( 08/2023 ), 92 kg (09/2023, 01/2024) Est kcal needs as per MSJ:2200 (40% carb, 30% protein/fat) Est fluid needs as per 30 ml/d: 2600 Est prot per day as per 1 g/kg bw: 88 Recommend fiber intake : 8-10 g per day and gradually increase to 25-28 g per day for women and 35-38 g for men or as tolerated Recommend sodium intake per day: less than 2000 mg Educated patient on: ( R = reviewed V = verbalizes understanding N/R = needs review N/A = not applicable * Food sources of carbohydrate, adequate serving sizes and its role in various health conditions: R * Differences between complex carbohydrates a simple carbohydrates, role of fiber in diet: R * Lean protein sources of foods: R * Differences between types of fats and role in diet (mono on saturated fat fatty acids, saturated fatty acids, trans fats): R * Food sources of sodium in salt and healthy modifications for heart health in kidney health: R * Vitamins and minerals: N/R * Healthy plate method concept: R V * Physical activity: Benefits a precaution: R * Hypoglycemia protocol (rule of 15): N/R * Dietary prevention of Hyperglycemia: R Patient Instructions: Choose beverages without sugar : water with lemon, seltzer water, see list of options Choose whole wheat Maori muffin with peanut butter and jelly preserve instead of donut and low sugar beverage for breakfast monitor your blood sugars and bring to next f/u for review Coding Level of Care Code Nutr Indiv Subseq (85761) Diagnoses Type 2 diabetes mellitus with hyperglycemia, with long-term current use of insulin E11.65; Z79.4 Diabetes mellitus complication status: with hyperglycemia Diabetes mellitus assistant terminal manager insulin use: with assistant terminal manager use Time Spent (min) 30
== END 2024-01-10 14:24 | disposition home or self-care (01) ==
PROVIDERS: PCP Nurse Practitioner Family; Visit Provider Dietitian, Registered
DX: E11.65 Type 2 diabetes mellitus with hyperglycemia (principal); Z79.4 Long term (current) use of insulin

== ENCOUNTER → 2024-01-10 14:00 | Outpatient (BNVA) | payer MEDICARE, MEDICAID, SELFPAY | PROVIDERS: PCP Nurse Practitioner Family; Visit Provider Dietitian, Registered | DX: E11.65 Type 2 diabetes mellitus with hyperglycemia (principal); Z79.4 Long term (current) use of insulin | CPT/HCPCS: 97803 ==

== ENCOUNTER 2024-01-24 08:08 | Outpatient (REF) | payer MEDICARE, MEDICAID, SELFPAY ==
[2024-01-24 12:59] LABS: Creatinine Urine 37.17 mg/dL; Microalbumin Urine < 5.0 mg/L
== END 2024-01-24 08:09 | disposition home or self-care (01) ==
LOC: HO.HMGCLDS 08:08
PROVIDERS: PCP Nurse Practitioner Family; Visit Provider Internal Medicine Endocrinology, Diabetes & Metabolism
DX: E11.65 Type 2 diabetes mellitus with hyperglycemia (principal); Z79.4 Long term (current) use of insulin
CPT/HCPCS: 82043; 82570

== ENCOUNTER 2024-02-06 14:21 | Outpatient (AMB) | payer MEDICARE, MEDICAID, SELFPAY ==
[2024-02-06 14:37] VITALS: BMI 30.4
--- NOTE | 2024-02-06 14:37 | A.OFFVIS_ITS ---
VS Expanded 02/06/24 14:37 Height 5 ft 8 in Weight 199 lb 11.821 oz BMI 30.4 Intake Visit Reasons: T2DM/LVM Allergies No Known Allergies [No Known Allergies*] Allergy (Verified 11/21/23 15:05) Nutrition Presentation Details: Pt presents for MNT f/u for T2DM Pt c/o having nocturnal hypoglycemia, he reports his last meal is at 4-6 pm. BS Monitoring Most Recent Diabetes Results: Microalb/Creat Ratio TNP 01/24/24 Cholesterol 147 mg/dL (<200) 11/03/23 HDL Cholesterol 63 mg/dL (>40) 11/03/23 Triglycerides 62 mg/dL (<150) 11/03/23 Creatinine 0.66 mg/dL (0.5-1.4) 12/06/23 Blood Urea Nitrogen 12 mg/dL (9-16) 12/06/23 Sodium 137 mmol/L (135-145) 12/06/23 Potassium 4.5 mmol/L (3.3-5.1) 12/06/23 Chloride 104 mmol/L (96-108) 12/06/23 Carbon Dioxide 24 mmol/L (22-29) 12/06/23 Calcium 8.9 mg/dL (8.4-10.2) 12/06/23 AST 12 U/L (5-37) 11/03/23 ALT 12 U/L (0-40) 11/03/23 Total Protein 6.5 g/dL (6.5-8.0) 11/03/23 Albumin 3.7 g/dL (3.5-5.0) 11/03/23 [facility] Medical History Diabetic retinopathy Tubular adenoma of colon Hyperlipidemia Personal history of nicotine dependence CAD (coronary artery disease) Essential hypertension Multinodular thyroid Heart murmur Vitamin D deficiency T2DM (type 2 diabetes mellitus) 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 Maternal Grandmother Unknown family medical history Social History Housing: House Alcohol intake: never Patient Tobacco Use Status: Current everyday Tobacco user Tobacco use type: Cigarette Cigarette Packs Per Day: 1 Cigarettes Per Day: 20.0 Years Smoked: (current smoker - onset 13yo, 1ppd x 43yrs, 40pyh) e-Cigarette/Vaping Use: Never Used Second Hand Smoke Exposure: No service: No Current occupational status: disabled Current occupational exposures/hazards: No Cognitive needs: No Hearing needs: No Vision needs: No Assessment & Plan Assessment & Plan (1) T2DM (type 2 diabetes mellitus): Code(s): E11.9 - Type 2 diabetes mellitus without complications Category: Medical Qualifiers: Diabetes mellitus group home insulin use: with group home use Diabetes mellitus complication status: with hyperglycemia Qualified Code(s): E11.65 - Type 2 diabetes mellitus with hyperglycemia; 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 - 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 Plan: Wt: 88Kg ( 08/2023 ), 92 kg (09/2023, 01/2024), 91 kg (02/2024) Est kcal needs as per MSJ:2200 (40% carb, 30% protein/fat) Est fluid needs as per 30 ml/d: 2600 Est prot per day as per 1 g/kg bw: 88 Recommend fiber intake : 8-10 g per day and gradually increase to 25-28 g per day for women and 35-38 g for men or as tolerated Recommend sodium intake per day: less than 2000 mg Educated patient on: ( R = reviewed V = verbalizes understanding N/R = needs review N/A = not applicable * Food sources of carbohydrate, adequate serving sizes and its role in various health conditions: R * Differences between complex carbohydrates a simple carbohydrates, role of fiber in diet: R * Lean protein sources of foods: R * Differences between types of fats and role in diet (mono on saturated fat fatty acids, saturated fatty acids, trans fats): R * Food sources of sodium in salt and healthy modifications for heart health in kidney health: R * Vitamins and minerals: N/R * Healthy plate method concept: R V * Physical activity: Benefits a precaution: R * Hypoglycemia protocol (rule of 15): N/R * Dietary prevention of Hyperglycemia: R Patient Instructions: HAve a bedtime snack 4 cracker with peanut butter or yogurt at bedtime to prevent low blood sugars in the middle of the night contact the doctor and environmental educator if continuing to have low blood glucose Coding Level of Care Code Nutr Indiv Subseq (98143) Diagnoses Type 2 diabetes mellitus with hyperglycemia, with long-term current use of insul in E11.65; Z79.4 Diabetes mellitus group home insulin use: with oysterman use Diabetes mellitus complication status: with hyperglycemia Time Spent (min) 20
== END 2024-02-06 14:59 | disposition home or self-care (01) ==
PROVIDERS: PCP Nurse Practitioner Family; Visit Provider Dietitian, Registered
DX: E11.65 Type 2 diabetes mellitus with hyperglycemia (principal); Z79.4 Long term (current) use of insulin

== ENCOUNTER → 2024-02-06 14:21 | Outpatient (BNVA) | payer MEDICARE, MEDICAID, SELFPAY | PROVIDERS: PCP Nurse Practitioner Family; Visit Provider Dietitian, Registered | DX: E11.65 Type 2 diabetes mellitus with hyperglycemia (principal); E11.3299 Type 2 diabetes mellitus with mild nonproliferative diabetic retinopathy without macular edema, unspecified eye; E11.42 Type 2 diabetes mellitus with diabetic polyneuropathy; E05.20 Thyrotoxicosis with toxic multinodular goiter without thyrotoxic crisis or storm; E55.9 Vitamin D deficiency, unspecified; Z68.30 Body mass index [BMI] 30.0-30.9, adult; Z79.4 Long term (current) use of insulin; Z71.3 Dietary counseling and surveillance | CPT/HCPCS: 97803 ==

== ENCOUNTER 2024-03-25 13:52 | Outpatient (AMB) | payer MEDICARE, MEDICAID, SELFPAY ==
[2024-03-25 13:53] VITALS: BP 126/60; PULSE 72; BMI 30.2
--- NOTE | 2024-03-25 13:53 | MHC.OFFVIS ---
Vital Signs 03/25/24 13:53 Height 5 ft 8 in Weight 198 lb 13.711 oz BMI 30.2 BP 126/60 Blood Pressure Location Lt brachial Position Sitting Pulse 72 Pulse Source Pulse Oximeter Intake Visit Reasons: Grave's DX Intake Note: Patient present today for Grave's disease office visit. Potato Chip Fryer Required: No Accompanied by: Self / Same As Patient Allergies No Known Allergies [No Known Allergies*] Allergy (Verified 03/25/24 13:57) Medication List - Last Reconciled 03/25/24 by Reyes Kate MD aspirin (Adult Low Dose Aspirin) 81 mg PO DAILY atorvastatin 40 mg PO BEDTIME blood sugar diagnostic (FreeStyle Lite Strips) 3times a day blood-glucose meter (FreeStyle Lite Meter kit) As directed buspirone 5 mg PO BID cholecalciferol (vitamin D3) 50 mcg PO DAILY divalproex ER 500 mg PO BID doxycycline monohydrate 100 mg PO BID 7 days empagliflozin (Jardiance) 25 mg PO QAM gabapentin 800 mg PO TID 30 days lisinopril 2.5 mg PO DAILY 90 days lithium carbonate 300 mg PO DAILY lithium carbonate 600 mg PO BEDTIME metformin 1,000 mg PO BID 90 days metoprolol tartrate 50 mg PO BID omega-3 fatty acids (Fish Oil Concentrate) 1 tab PO DAILY pen needle, diabetic (BD Margot 2nd Gen Pen Needle) USE TO INJECT INSULIN DAILY DIRECTED pioglitazone 30 mg PO DAILY quetiapine 400 mg PO BEDTIME semaglutide (Ozempic) 2 mg (0.75 mL) subcut QWEEK Tresiba FlexTouch U-100 (insulin degludec) 20 units (0.2 mL) subcut DAILY NS HPI Comments Details: 2) Grave's Disease: Has a history of Grave's disease diagnosed in 2014. He did not undergo a thorough workup at that time. He had positive TSI and TPO antibodies. Thyroid uptake and scan revealed mildly increased uptake at 24 hours at 30.2%. No pattern was given. This was completed in 2014. After our initial consultation we stopped his Methimazole, and labs were repeated 2 weeks later. He was able to maintain euthyroidism indicating likely remission. Antibodies were reassessed with negative TSI and TRAB antibodies. TPO and TG antibodies were positive. He did have an US completed which revealed multiple nodules bilaterally. He underwent FNA biopsy 03/17/2022 of his RMP 1.5 cm thyroid nodule and his LUP 1.3 cm thyroid nodule. Results as follows: RMP 1.5 cm thyroid nodule - atypia of undetermined significance (bethesda category III), affirma benign LUP 1.3 cm thyroid nodule - atypia of undetermined significance (bethesda category III), affirma benign He has Grave's ophthalmopathy. He reports feeling well today. US Thyroid: 08/27/2021 FINDINGS: ? SIZE: Measurements of the thyroid lobes and nodules are given in sagittal, anteroposterior and transverse dimensions respectively. Right Thyroid Lobe: 6.83 x 3.19 x 2.74 cm, volume 31.2 mL. Parenchyma: The gland echotexture is homogeneous. Thyroid vascularity is normal. Left Thyroid Lobe: 6.69 x 3.18 x 3.22 cm, volume 35.9 mL. Parenchyma: The gland echotexture is heterogeneous. Thyroid vascularity is increased. Isthmus: 1.08 cm in maximum AP dimension. There are multiple thyroid nodules. The largest nodules are measured. Estimated total number of nodules greater than or equal to 1 cm: 2. Executive Team Leader nodules are described as follows: 1. Location: Right mid. ?? ? Size: 0.62 x 0.55 x 0.71 cm, volume 0.13 mL. ?? ? Nodule characteristics: ?? ? Composition: Solid (2). ?? ? Echogenicity: Hypoechoic (2). ?? ? Shape: Not taller than wide (0). ?? ? Margins: Smooth (0). ?? ? Echogenic Foci: None (0). ?? ? ACR TI-RADS total points: 4 ?? ? ACR TI-RADS category: 4 2. Location: Right mid. ?? ? Size: 1.5 x 0.90 x 1.4 cm, volume 0.93 mL. ?? ? Nodule characteristics: ?? ? Composition: Solid (2). ?? ? Echogenicity: Isoechoic (1). ?? ? Shape: Not taller than wide (0). ?? ? Margins: Smooth (0). ?? ? Echogenic Foci: None (0). ?? ? ACR TI-RADS total points: 3 ?? ? ACR TI-RADS category: 3 3. Location: Left superior. ?? ? Size: 1.3 x 0.90 x 1.2 cm, volume 0.80 mL. ?? ? Nodule characteristics: ?? ? Composition: Solid/almost completely solid (2). ?? ? Echogenicity: Isoechoic (1). ?? ? Shape: Not taller than wide (0). ?? ? Margins: Smooth (0). ?? ? Echogenic Foci: Punctate echogenic foci (3). ?? ? ACR TI-RADS total points: 6 ?? ? ACR TI-RADS category: 4 4. Location: Left superior. ?? ? Size: 0.60 x 0.42 x 0.52 cm, volume 0.07 mL. ?? ? Nodule characteristics: ?? ? Composition: Spongiform (0). ?? ? Echogenicity: Anechoic (0). ?? ? Shape: Not taller than wide (0). ?? ? Margins: Smooth (0). ?? ? Echogenic Foci: None (0). ?? ? ACR TI-RADS total points: 0 ?? ? ACR TI-RADS category: 1 5.? Location: Left mid. ?? ? Size: 0.60 x 0.55 x 0.60 cm, volume 0.09 mL. ?? ? Nodule characteristics: ?? ? Composition: Cystic(0). ?? ? ACR TI-RADS total points: 0 ?? ? ACR TI-RADS category: 1 NODES: No lymphadenopathy is seen in the tissue surrounding the thyroid gland. 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 Maternal Grandmother Unknown family medical history Social History Housing: House Alcohol intake: never Patient Tobacco Use Status: Current everyday Tobacco user Tobacco use type: Cigarette Cigarette Packs Per Day: 1 Cigarettes Per Day: 20.0 Years Smoked: (current smoker - onset 13yo, 1ppd x 43yrs, 40pyh) e-Cigarette/Vaping Use: Never Used Second Hand Smoke Exposure: No service: No Current occupational status: disabled Current occupational exposures/hazards: No Cognitive needs: No Hearing needs: No Vision needs: No Physical Exam Vital Signs: Last Vital Signs Pulse 72 03/25/24 13:53 BP 126/60 03/25/24 13:53 BMI result Body Mass Index 30.2 Const Other: Thyroid gland is large in size weighs about 30 g. There are no thyroid nodules palpated Assessment & Plan Assessment & Plan (1) Graves' disease with exophthalmos: Code(s): E05.00 - Thyrotoxicosis with diffuse goiter without thyrotoxic crisis or storm Category: Medical Plan: Currently in remission. Appears to be clinically euthyroid. Recent thyroid ultrasound showed no change in the size of the small thyroid nodules which were previously biopsied. Will recheck TSH and free T4. He will follow up with the primary care diabetes team for diabetic follow-up. Will also have him follow up with Dr. Sanchez in regards to the multiple thyroid nodules and she will either repeat the ultrasound and track the size of the nodules or send to Radiology for repeat ultrasound Orders: Orders Free T4 (Free Thyroxine) Today E05.00 - Thyrotoxicosis with diffuse goiter without thyrotoxic crisis or storm Thyroid Stimulating Hormone Today E05.00 - Thyrotoxicosis with diffuse goiter without thyrotoxic crisis or storm Coding Level of Care Code Est Pt Level 3 (38033) Diagnoses Graves' disease with exophthalmos E05.00
== END 2024-03-25 14:14 | disposition home or self-care (01) ==
PROVIDERS: PCP Nurse Practitioner Family; Visit Provider Internal Medicine Endocrinology, Diabetes & Metabolism
DX: E05.00 Thyrotoxicosis with diffuse goiter without thyrotoxic crisis or storm (principal)
CPT/HCPCS: 99213

== ENCOUNTER → 2024-03-25 13:52 | Outpatient (BNVA) | payer MEDICARE, MEDICAID, SELFPAY | PROVIDERS: PCP Nurse Practitioner Family; Visit Provider Internal Medicine Endocrinology, Diabetes & Metabolism | DX: E05.00 Thyrotoxicosis with diffuse goiter without thyrotoxic crisis or storm (principal) | CPT/HCPCS: 99212 ==

== ENCOUNTER 2024-04-05 14:31 | Outpatient (AMB) | payer MEDICARE, MEDICAID, SELFPAY ==
--- NOTE | 2024-04-05 14:01 | A.OFFPC_ITS ---
Vital Signs 04/05/24 14:43 BP 128/68 Blood Pressure Location Rt brachial Position Sitting Pulse 65 Pulse Source Pulse Oximeter Intake Visit Reasons: T2DM Intake Note: Patient presents today to re-establish treatment for Type Diabetes Mellitus: Last Diabetic eye exam was on: DUE Last Podiatry exam was on: Does not see a Compliance Officer Most recent HbA1c: 9.4%, 04/05/2024 Random Glucose- 246 mg/dL, Today Sand Temperer Required: No Accompanied by: Self / Same As Patient Allergies No Known Allergies [No Known Allergies*] Allergy (Verified 04/05/24 14:45) Medication List - Last Reconciled 04/05/24 by Shawna Velasquez PA-C aspirin (Adult Low Dose Aspirin) 81 mg PO DAILY atorvastatin 40 mg PO BEDTIME blood sugar diagnostic (FreeStyle Lite Strips) 3times a day blood-glucose meter (FreeStyle Lite Meter kit) As directed buspirone 5 mg PO BID cholecalciferol (vitamin D3) 50 mcg PO DAILY divalproex ER 500 mg PO BID doxycycline monohydrate 100 mg PO BID 7 days empagliflozin (Jardiance) 25 mg PO QAM gabapentin 800 mg PO TID 30 days insulin degludec (Tresiba FlexTouch U-100 insulin) 12 units subcut DAILY lisinopril 2.5 mg PO DAILY 90 days lithium carbonate 300 mg PO DAILY lithium carbonate 600 mg PO BEDTIME metformin 1,000 mg PO BID 90 days metoprolol tartrate 50 mg PO BID omega-3 fatty acids (Fish Oil Concentrate) 1 tab PO DAILY pen needle, diabetic (BD Margot 2nd Gen Pen Needle) USE TO INJECT INSULIN DAILY DIRECTED pioglitazone 30 mg PO DAILY quetiapine 400 mg PO BEDTIME semaglutide (Ozempic) 2 mg (0.75 mL) subcut QWEEK Tobacco use date assessed: 01/30/23 Dental Screening Dental Screen Date: 01/30/23 HPI T2DM HPI Details Patient is a 58-year-old male with a significant past medical history of CAD, hypertension, hyperlipidemia and type 2 diabetes with peripheral neuropathy, retinopathy in Graves disease presenting today for a diabetic follow-up. He follows with Dr. Kate for his Graves disease. DM-last A1c from November was 7.8. His A1c today is 9.4. He is currently on Tresiba 10 units, metformin 1000 mg twice a day, Actos 30 mg daily, Jardiance 25 mg and Ozempic 2 mg weekly. He states he was diagnosed he thinks over 20 years ago. CGM-[employer] 3 download shows usage 97%, average glucose 228, GMI 8.8%, glucose variability 41.2%. The very hyperglycemic 38%, hyperglycemic 20%, in range 42%, 0 hypoglycemic events Hypoglycemia- rare, corrects with Hyperglycemia- throughout the day, worse with meal time. He skips lunch usually and just drinks a coke and smokes a cigarette. CV: Blood pressure today in the office is 128/68. He is on lisinopril 2.5 mg, Toprol 50 mg twice a day, and atorvastatin 40 mg. 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 Maternal Grandmother Unknown family medical history Social History Housing: House Alcohol intake: never Patient Tobacco Use Status: Current everyday Tobacco user Tobacco use type: Cigarette Cigarette Packs Per Day: 1 Cigarettes Per Day: 20.0 Years Smoked: (current smoker - onset 13yo, 1ppd x 43yrs, 40pyh) e-Cigarette/Vaping Use: Never Used Second Hand Smoke Exposure: No service: No Current occupational status: disabled Current occupational exposures/hazards: No Cognitive needs: No Hearing needs: No Vision needs: No Questionnaire Thrive Questionnaire Date Thrive assessed: 09/01/22 LAURA-7 AMB Questionnaire LAURA-7 Date LAURA - 7 assessed: 09/01/22 Source: Developed by Drs. Reyes Moraes, Shirlene Huntley, Nayan Person and colleagues, with an educational spencer from [employer]. Physical exam (Primary Care) Vital Signs: Last Vital Signs Pulse 65 04/05/24 14:43 BP 128/68 04/05/24 14:43 Tobacco/Smoking Status: Tobacco use Status Tobacco use date assessed 01/30/23 04/05/24 14:13 Patient Tobacco Use Status Current everyday Tobacco 04/05/24 14:13 Tobacco use type Cigarette 04/05/24 14:13 e-Cigarette/Vaping Use Never Used 04/05/24 14:13 Thrive Assessment: Date of Thrive Assessment Date Thrive assessed 09/01/22 04/05/24 14:13 Const Orientation/consciousness: patient oriented x3 Neck Neck: Yes no lymphadenopathy Carotids: no bruits Resp Auscultation: clear to auscultation bilaterally Cardio Rate: regular rate Rhythm: regular rhythm Heart sounds: S1 normal heart sound present and S2 normal heart sound present Neuro General: patient oriented x3, gait normal and no focal motor deficits Extrem General: Yes normal to inspection Results AMB Hemoglobin A1c AMB Hemoglobin A1c 9.4 % Last Edit by JACQUIE Lara on 04/05/24 14:59 Results Reviewed Results Reviewed: Laboratory Last Values Glucose (Clinic) 246 mg/dL (60-115) H 04/05/24 14:49 Laboratory Tests 11/03/23 11/21/23 12/06/23 08:51 15:11 09:07 Sodium 137 Potassium 4.5 Chloride 104 Carbon Dioxide 24 Anion Gap 14 BUN 12 Creatinine 0.66 Estimated GFR > 60 Random Glucose 262 H Hgb A1c (Clinic) 7.8 H Calcium 8.9 Triglycerides 62 Cholesterol 147 LDL Cholesterol, Calc 72 HDL Cholesterol 63 Assessment and Plan Assessment & Plan (1) Diabetic polyneuropathy associated with type 2 diabetes mellitus: Code(s): E11.42 - Type 2 diabetes mellitus with diabetic polyneuropathy Plan: Will increase the Tresiba to 12 units and start on NovoLog 4 units with breakfast and supper. He is going to work on cutting out soda. He states that he knows the diet changes to make and that he has created these problems with his diabetes because he makes poor choices. He states that he has a great understanding of complications associated with diabetes. We reviewed signs and symptoms of hyper and hypoglycemia that would require emergent medical treatment. Rule of 15 discussed. Glucose tabs ordered. 1 month follow up or sooner prn. (2) Essential hypertension: Code(s): I10 - Essential (primary) hypertension Plan: Continue current regimen Orders: Orders AMB Hemoglobin A1c Today Shawna Velasquez PA-C E11.42 - Type 2 diabetes mellitus with diabetic polyneuropathy Medications: New insulin aspart (niacinamide) 100 unit/mL (3 mL) (Fiasp FlexTouch U-100 Insulin) with breakfast and supper 4 units subcut BID 30 days 15 mL 3RF Shawna Velasquez PA-C glucose (Dex4 Glucose) until symptoms of low blood sugar are controlled 16 grams (4 x 4 gram) PO Q15M PRN 100 tabs 0RF hypoglycemia Shawna Velasquez PA-C Changed From Tresiba FlexTouch U-100 (insulin degludec) 20 units (0.2 mL) subcut DAILY 15 mL 5RF NS To insulin degludec (Tresiba FlexTouch U-100 insulin) 12 units subcut DAILY Reyes Kate MD Coding Level of Care Code Est Pt Level 4 (27925) Diagnoses Diabetic polyneuropathy associated with type 2 diabetes mellitus E11.42 Essential hypertension I10
[2024-04-05 14:43] VITALS: BP 128/68; PULSE 65
[2024-04-05 14:54] LABS: Glucose, Whole Blood 246 mg/dL (60-115)
== END 2024-04-05 15:12 | disposition home or self-care (01) ==
PROVIDERS: PCP Nurse Practitioner Family; Visit Provider Physician Assistant
DX: E11.42 Type 2 diabetes mellitus with diabetic polyneuropathy (principal); I10 Essential (primary) hypertension
CPT/HCPCS: 99214

== ENCOUNTER → 2024-04-05 14:31 | Outpatient (BNVA) | payer MEDICARE, MEDICAID, SELFPAY | PROVIDERS: PCP Nurse Practitioner Family; Visit Provider Physician Assistant | DX: E11.42 Type 2 diabetes mellitus with diabetic polyneuropathy (principal); I10 Essential (primary) hypertension | CPT/HCPCS: 82947; 83036; 99212 ==

== ENCOUNTER 2024-04-16 14:29 | Outpatient (AMB) | payer MEDICARE, MEDICAID, SELFPAY ==
[2024-04-16 14:35] VITALS: BP 114/62; PULSE 72; BMI 29.4
--- NOTE | 2024-04-16 14:35 | A.OFFVIS_ITS ---
Vital Signs 04/16/24 14:35 Height 5 ft 8 in Weight 193 lb 9.054 oz BMI 29.4 BP 114/62 Blood Pressure Location Lt brachial Position Sitting Pulse 72 Pulse Source Pulse Oximeter Intake Visit Reasons: 6 mth f/up [employer] Required: No Allergies No Known Allergies [No Known Allergies*] Allergy (Verified 04/16/24 14:36) Medication List - Last Reconciled 04/16/24 by DEYANIRA Cowan aspirin (Adult Low Dose Aspirin) 81 mg PO DAILY atorvastatin 40 mg PO BEDTIME blood sugar diagnostic (FreeStyle Lite Strips) 3times a day blood-glucose meter (FreeStyle Lite Meter kit) As directed buspirone 5 mg PO BID divalproex ER 500 mg PO BID empagliflozin (Jardiance) 25 mg PO QAM gabapentin 800 mg PO TID 30 days glucose (Dex4 Glucose) 16 grams (4 x 4 gram) PO Q15M PRN insulin aspart (niacinamide) 100 unit/mL (3 mL) (Fiasp FlexTouch U-100 Insulin) 4 units subcut BID 30 days insulin degludec (Tresiba FlexTouch U-100 insulin) 12 units subcut DAILY lisinopril 2.5 mg PO DAILY 90 days lithium carbonate 300 mg PO DAILY lithium carbonate 600 mg PO BEDTIME metformin 1,000 mg PO BID 90 days metoprolol tartrate 50 mg PO BID pen needle, diabetic (BD Margot 2nd Gen Pen Needle) USE TO INJECT INSULIN DAILY DIRECTED pioglitazone 30 mg PO DAILY quetiapine 400 mg PO BEDTIME semaglutide (Ozempic) 2 mg (0.75 mL) subcut QWEEK HPI HPI 6 mth f/up: Details: Jovon is a 58-year-old male with past medical history of hypertension, hyperlipidemia, diabetes, smoking, coronary artery disease, aortic sclerosis who presents for follow-up. Today he states that he has been doing well since his last visit in October. He has been having less fatigue. He has no chest discomfort at rest or with activity. No shortness of breath, palpitations, lightheadedness, presyncope, syncope, PND, orthopnea or edema. Taking his medications as directed. 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 Maternal Grandmother Unknown family medical history Social History Housing: House Alcohol intake: never Patient Tobacco Use Status: Current everyday Tobacco user Tobacco use type: Cigarette Cigarette Packs Per Day: 1 Cigarettes Per Day: 20.0 Years Smoked: (current smoker - onset 13yo, 1ppd x 43yrs, 40pyh) e-Cigarette/Vaping Use: Never Used Second Hand Smoke Exposure: No service: No Current occupational status: disabled Current occupational exposures/hazards: No Cognitive needs: No Hearing needs: No Vision needs: No Review of Systems Const All systems reviewed & are unremarkable except as noted in HPI and below ENT Denies dizziness Card Denies chest pain, Denies chest pain at rest, Denies chest pain with activity, Denies rapid heart rate, Denies pedal edema, Denies edema, Denies leg edema, Denies lightheadedness, Denies palpitations, Denies dyspnea, Denies dyspnea on exertion and Denies orthopnea Resp Denies cough, Denies dyspnea and Denies dyspnea on exertion GI Denies hematochezia and Denies change in stool character Musc Denies abnormal gait, Denies limited range of motion, Denies muscle cramps, Denies muscle weakness, Denies numbness, Denies radiating pain into limb, Denies stiffness and Denies tingling Neuro Denies abnormal gait, Denies dizziness, Denies numbness and Denies tingling Endo Denies palpitations Physical Exam Vital Signs: Last Vital Signs Pulse 72 04/16/24 14:35 BP 114/62 04/16/24 14:35 BMI result Body Mass Index 29.4 Const General: cooperative, healthy appearing, comfortable and no acute distress Orientation/consciousness: patient oriented x3 Neck Neck: Yes normal visual inspection Resp Effort & Inspection: normal respiratory effort Auscultation: clear to auscultation bilaterally, no crackles, no rales, no rhonchi and no wheezes Cardio Jugular venous distension: no JVD Rate: regular rate Rhythm: regular rhythm Heart sounds: S1 normal heart sound present, S2 normal heart sound present, no gallops, no murmurs and no rubs Neuro General: patient oriented x3 Extrem Other: right radial cath site well healed General: Yes normal to inspection Psych Appearance: grossly normal Mental Status: mental status grossly normal Speech and movement: Normal speech and movement present Assessment & Plan Assessment & Plan (1) CAD (coronary artery disease): Code(s): I25.10 - Atherosclerotic heart disease of [place] coronary artery without angina pectoris Category: Medical Qualifiers: Associated angina: without angina Coronary Disease-Associated Artery/Lesion type: [place] artery [place] vs. transplanted heart: [place] heart Qualified Code(s): I25.10 - Atherosclerotic heart disease of [place] coronary artery without angina pectoris Plan: Newer finding of coronary artery disease. Prior lungs CT scan had shown moderate to severe coronary calcifications. He underwent a coronary CTA on 12/23/2022 showing LAD severe calcification proximal less than 50% and distal, can not exclude high-grade stenosis, left circumflex 2nd OM 60% stenosis, RCA can not exclude high-grade stenosis, focal severe stenosis of the proximal PDA. Cardiac catheterization 05/23/23 and showed significant LAD, OM1 and OM3 ostial stenosis. The cath note indicated the best way for revascularization would be c oronary artery bypass grafting. Reviewed results in detail with him. He has been denying any cardiac symptoms. He reports good activity tolerance. Is not interested in referral at this time. Discussed signs and symptoms of angina. Informed him that if he has any concerning symptoms he needs to notify this office or seek emergency care if needed. Referral would be made at that time. At this time will continue with med management and risk factor modification. Will continue on aspirin indefinitely. Continue atorvastatin with ideal LDL goal less than 70. Last labs 11/03/2023 showed LDL 72. Will increase his atorvastatin up to 80 mg daily. Will plan for a repeat fasting lipid and CMP in 3 months. Continue Metoprolol. Blood pressure is well controlled. He needs to continue with good diabetic control with hemoglobin A1c goal less than 7. Labs done 01/31/2023 had shown hemoglobin A1c 5.9. Continue usual activity as tolerated. Cardiology follow up in 6 mo, sooner if needed. Emergency care if needed for symptoms. (2) S/P cardiac cath: Comment: 05/23/23 Mid LAD 70% stenosis, IFR .81, mid left circumflex 50% stenosis, OM1 80% stenosis, OM3 80% stenosis, RCA less than 30% stenosis Code(s): Z98.890 - Other specified postprocedural states Category: Surgical Plan: As above (3) Essential hypertension: Code(s): I10 - Essential (primary) hypertension Category: Medical Plan: Normal range at present. Continue current antihypertensives. The importance of good blood pressure control reviewed with him with ideal goal less than 130/85 (4) Hyperlipidemia: Code(s): E78.5 - Hyperlipidemia, unspecified Category: Medical Qualifiers: Hyperlipidemia type: unspecified Qualified Code(s): E78.5 - Hyperlipidemia, unspecified Plan: [place] LDL goal less than 70 in patient with diabetes and CAD. Increasing atorvastatin as above. (5) T2DM (type 2 diabetes mellitus): Code(s): E11.9 - Type 2 diabetes mellitus without complications Category: Medical Qualifiers: Diabetes mellitus complication status: with hyperglycemia Diabetes mellitus hyperbaric nurse insulin use: with hyperbaric nurse use Qualified Code(s): E11.65 - Type 2 diabetes mellitus with hyperglycemia; Z79.4 - intermediate (current) use of insulin Plan: Hemoglobin A1c goal less than 7. Following with endocrinology Plan Time spent on chart review, documentation, interview and assessment Orders: Orders Comprehensive Met. Panel 3 Months I25.10 - Atherosclerotic heart disease of [place] coronary artery without angina pectoris Lipid Panel 3 Months I25.10 - Atherosclerotic heart disease of [place] coronary artery without angina pectoris Medications: New atorvastatin Dose increased 80 mg PO BEDTIME 90 tabs 3RF Discontinued atorvastatin Discontinued Reason: Doctor's Order 40 mg PO BEDTIME 90 tabs 3RF Coding Level of Care Code Est Pt Level 4 (17503) Diagnoses Coronary artery disease involving [place] coronary artery of [place] heart without angina pectoris I25.10 Associated angina: without angina Coronary Disease-Associated Artery/Lesion type: [place] artery [place] vs. transplanted heart: [place] heart S/P cardiac cath Z98.890 Essential hypertension I10 Hyperlipidemia, unspecified hyperlipidemia type E78.5 Hyperlipidemia type: unspecified Type 2 diabetes mellitus with hyperglycemia, with long-term current use of insulin E11.65; Z79.4 Diabetes mellitus complication status: with hyperglycemia Diabetes mellitus fdc insulin use: with fdc use Time Spent (min) 28
== END 2024-04-16 14:59 | disposition home or self-care (01) ==
PROVIDERS: PCP Nurse Practitioner Family; Visit Provider Nurse Practitioner Family
DX: I25.10 Atherosclerotic heart disease of native coronary artery without angina pectoris (principal); Z98.890 Other specified postprocedural states; I10 Essential (primary) hypertension; E78.5 Hyperlipidemia, unspecified; E11.65 Type 2 diabetes mellitus with hyperglycemia; Z79.4 Long term (current) use of insulin
CPT/HCPCS: 99214

== ENCOUNTER → 2024-04-16 14:29 | Outpatient (BNVA) | payer MEDICARE, MEDICAID, SELFPAY | PROVIDERS: PCP Nurse Practitioner Family; Visit Provider Nurse Practitioner Family | DX: I25.10 Atherosclerotic heart disease of native coronary artery without angina pectoris (principal); I10 Essential (primary) hypertension; E78.5 Hyperlipidemia, unspecified; E11.65 Type 2 diabetes mellitus with hyperglycemia; Z79.4 Long term (current) use of insulin; Z98.890 Other specified postprocedural states | CPT/HCPCS: 99212 ==

== ENCOUNTER 2024-05-08 14:26 | Outpatient (AMB) | payer MEDICARE, MEDICAID, SELFPAY ==
--- NOTE | 2024-05-08 14:46 | A.OFFVIS_ITS ---
VS Expanded 05/08/24 14:46 Weight 203 lb 4.259 oz Intake Visit Reasons: T2DM/CONFIRMED Allergies No Known Allergies [No Known Allergies*] Allergy (Verified 04/16/24 14:36) Nutrition Presentation Details: Pt presents for MNT f/u for T2DM Pt admits to not making dietary modifications BS Monitoring Most Recent Diabetes Results: Microalb/Creat Ratio TNP 01/24/24 PFSH Medical History Diabetic retinopathy Tubular adenoma of colon Personal history of nicotine dependence CAD (coronary artery disease) Essential hypertension Multinodular thyroid Heart murmur Vitamin D deficiency T2DM (type 2 diabetes mellitus) 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 Maternal Grandmother Unknown family medical history Social History Housing: House Alcohol intake: never Patient Tobacco Use Status: Current everyday Tobacco user Tobacco use type: Cigarette Cigarette Packs Per Day: 1 Cigarettes Per Day: 20.0 Years Smoked: (current smoker - onset 13yo, 1ppd x 43yrs, 40pyh) e-Cigarette/Vaping Use: Never Used Second Hand Smoke Exposure: No service: No Current occupational status: disabled Current occupational exposures/hazards: No Cognitive needs: No Hearing needs: No Vision needs: No Assessment & Plan Assessment & Plan (1) T2DM (type 2 diabetes mellitus): Code(s): E11.9 - Type 2 diabetes mellitus without complications Category: Medical Qualifiers: Diabetes mellitus intermediate insulin use: with termite exterminator use Diabetes mellitus complication status: with hyperglycemia Qualified Code(s): E11.65 - Type 2 diabetes mellitus with hyperglycemia; Z79.4 - detention (current) use of insulin Plan: Wt: 88Kg ( 08/2023 ), 92 kg (09/2023, 01/2024), 91 kg (02/2024) Est kcal needs as per MSJ:2200 (40% carb, 30% protein/fat) Est fluid needs as per 30 ml/d: 2600 Est prot per day as per 1 g/kg bw: 88 Recommend fiber intake : 8-10 g per day and gradually increase to 25-28 g per day for women and 35-38 g for men or as tolerated Recommend sodium intake per day: less than 2000 mg Educated patient on: ( R = reviewed V = verbalizes understanding N/R = needs review N/A = not applicable * Food sources of carbohydrate, adequate serving sizes and its role in various health conditions: R * Differences between complex carbohydrates a simple carbohydrates, role of fiber in diet: R * Lean protein sources of foods: R * Differences between types of fats and role in diet (mono on saturated fat fatty acids, saturated fatty acids, trans fats): R * Food sources of sodium in salt and healthy modifications for heart health in kidney health: R * Vitamins and minerals: R * Healthy plate method concept: R V * Physical activity: Benefits a precaution: R * Hypoglycemia protocol (rule of 15): N/R * Dietary prevention of Hyperglycemia: R Patient Instructions: HAve a cup of milk in place of soda at lunch time Coding Level of Care Code Nutr Indiv Subseq (57129) Diagnoses Type 2 diabetes mellitus with hyperglycemia, with long-term current use of insulin E11.65; Z79.4 Diabetes mellitus termite exterminator insulin use: with termite exterminator use Diabetes mellitus complication status: with hyperglycemia Time Spent (min) 30
== END 2024-05-08 15:22 | disposition home or self-care (01) ==
PROVIDERS: PCP Nurse Practitioner Family; Visit Provider Dietitian, Registered
DX: E11.65 Type 2 diabetes mellitus with hyperglycemia (principal); Z79.4 Long term (current) use of insulin

== ENCOUNTER → 2024-05-08 14:26 | Outpatient (BNVA) | payer MEDICARE, MEDICAID, SELFPAY | PROVIDERS: PCP Nurse Practitioner Family; Visit Provider Dietitian, Registered | DX: E11.65 Type 2 diabetes mellitus with hyperglycemia (principal); Z79.4 Long term (current) use of insulin | CPT/HCPCS: 97803 ==

== ENCOUNTER 2024-05-13 15:26 | Outpatient (AMB) | payer MEDICARE, MEDICAID, SELFPAY ==
--- NOTE | 2024-05-13 15:28 | A.OFFVIS_ITS ---
Vital Signs 05/13/24 15:33 Height 5 ft 8 in Weight 19 lb 13.466 oz BMI 3.0 BP 112/60 Blood Pressure Location Rt brachial Position Sitting Pulse 99 Pulse Source Pulse Oximeter Intake Visit Reasons: T2DM/CONFIRMED Intake Note: Patient presents today to re-establish treatment for Type 2 Diabetes Mellitus: Last Diabetic eye exam was on: DUE Last Podiatry exam was on: Does not see a Steel Manager Most recent HbA1c: 9.4%, 04/05/2024 Random Glucose- 340 mg/dL, Today Generator Worker Required: No Accompanied by: Self / Same As Patient Allergies No Known Allergies [No Known Allergies*] Allergy (Verified 04/16/24 14:36) Medication List - Last Reconciled 05/13/24 by Shawna Velasquez PA-C aspirin (Adult Low Dose Aspirin) 81 mg PO DAILY atorvastatin 80 mg PO BEDTIME blood sugar diagnostic (FreeStyle Lite Strips) 3times a day blood-glucose meter (FreeStyle Lite Meter kit) As directed buspirone 5 mg PO BID divalproex ER 500 mg PO BID empagliflozin (Jardiance) 25 mg PO QAM gabapentin 800 mg PO TID 30 days glucose (Dex4 Glucose) 16 grams (4 x 4 gram) PO Q15M PRN insulin aspart (niacinamide) 100 unit/mL (3 mL) (Fiasp FlexTouch U-100 Insulin) inject 6 units with breakfast and inject 4 units subcutaneously with supper 30 days insulin degludec (Tresiba FlexTouch U-100 insulin) 12 units subcut DAILY lisinopril 2.5 mg PO DAILY 90 days lithium carbonate 300 mg PO DAILY lithium carbonate 600 mg PO BEDTIME metformin 1,000 mg PO BID 90 days metoprolol tartrate 50 mg PO BID pen needle, diabetic (BD Margot 2nd Gen Pen Needle) USE TO INJECT INSULIN DAILY DIRECTED pioglitazone 30 mg PO DAILY quetiapine 400 mg PO BEDTIME semaglutide (Ozempic) 2 mg (0.75 mL) subcut QWEEK HPI HPI T2DM/CONFIRMED: Details: Patient is a 58-year-old male with a significant past medical CAD, hyperlipidemia, type 2 diabetes, Graves disease, vitamin-D deficiency, hypertension presenting today for a diabetic follow-up. He was seen recently by myself. He follows with Dr. Kate for his Graves disease. DM-last A1c was 9.4. He is currently on Tresiba 10 units, metformin 1000 mg twice a day, fiasp 3 units BID, Actos 30 mg daily, Jardiance 25 mg and Ozempic 2 mg weekly. -he was supposed to be on a higher dosage of the feet ask and Tresiba but states that he did not realize this. He states he was diagnosed with diabetes around 1999. CGM-Quick TV Girish 3 download shows usage 45%, average glucose 209, GMI 8.3%, glucose variability 46.2%. The very hyperglycemic 28%, hyperglycemic 25%, in range 47%, 0 hypoglycemic events Hypoglycemia- rare, corrects with candy/juice or tabs Hyperglycemia- throughout the day, worse with meal time. He skips lunch usually and just drinks a coke and smokes a cigarette. CV: Blood pressure today in the office is 112/60. He is on lisinopril 2.5 mg, Toprol 50 mg twice a day, and atorvastatin 40 mg. 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 Maternal Grandmother Unknown family medical history Social History Housing: House Alcohol intake: never Patient Tobacco Use Status: Current everyday Tobacco user Tobacco use type: Cigarette Cigarette Packs Per Day: 1 Cigarettes Per Day: 20.0 Years Smoked: (current smoker - onset 13yo, 1ppd x 43yrs, 40pyh) e-Cigarette/Vaping Use: Never Used Second Hand Smoke Exposure: No service: No Current occupational status: disabled Current occupational exposures/hazards: No Cognitive needs: No Hearing needs: No Vision needs: No Physical Exam Const Orientation/consciousness: patient oriented x3 Neck Neck: Yes no lymphadenopathy Thyroid: Thyroid normal Resp Auscultation: clear to auscultation bilaterally Cardio Rate: regular rate Rhythm: regular rhythm Heart sounds: S1 normal heart sound present and S2 normal heart sound present Neuro General: patient oriented x3, gait normal and no focal motor deficits Extrem General: Yes normal to inspection Office Procedures Glucose Monitoring Details Details: See HPI 77692 - Glucose monitoring, continuous-physician I&R Procedure code (CPT) selection complete Results Reviewed Results Reviewed: Laboratory Tests 11/03/23 12/06/23 04/05/24 08:51 09:07 14:58 Creatinine 0.66 Estimated GFR > 60 Hgb A1c (Clinic) 9.4 H AST 12 ALT 12 Triglycerides 62 Cholesterol 147 LDL Cholesterol, Calc 72 HDL Cholesterol 63 Assessment & Plan Assessment & Plan (1) Diabetic polyneuropathy associated with type 2 diabetes mellitus: Code(s): E11.42 - Type 2 diabetes mellitus with diabetic polyneuropathy Category: Medical Plan: He states that he is uncomfortable with going up anything more than 12 unit we will go up to 12 units and increase the fiasp to 6 units with breakfast as he is highest in the morning with his meal and increase to 4 units with dinner. He does not eat lunch. Continue Actos, , Jardiance, metformin and Ozempic. One-month follow up. Sooner if needed. (2) Essential hypertension: Code(s): I10 - Essential (primary) hypertension Category: Medical Plan: WNL. Continue current regimen Coding Level of Care Code Est Pt Level 4 (23025) Diagnoses Diabetic polyneuropathy associated with type 2 diabetes mellitus E11.42 Essential hypertension I10 CPT Codes Details - CPT: 70887 - Glucose monitoring, continuous-physician I&R ([id number])
[2024-05-13 15:33] VITALS: BP 112/60; PULSE 99
[2024-05-13 15:42] LABS: Glucose, Whole Blood 340 mg/dL (60-115)
== END 2024-05-13 15:59 | disposition home or self-care (01) ==
PROVIDERS: PCP Nurse Practitioner Family; Visit Provider Physician Assistant
DX: E11.42 Type 2 diabetes mellitus with diabetic polyneuropathy (principal); I10 Essential (primary) hypertension

== ENCOUNTER → 2024-05-13 15:26 | Outpatient (BNVA) | payer MEDICARE, MEDICAID, SELFPAY | PROVIDERS: PCP Nurse Practitioner Family; Visit Provider Physician Assistant | DX: E11.42 Type 2 diabetes mellitus with diabetic polyneuropathy (principal); I10 Essential (primary) hypertension | CPT/HCPCS: 82947; 99212 ==

== ENCOUNTER 2024-05-14 13:53 | Outpatient (AMB) | payer MEDICARE, MEDICAID, SELFPAY ==
--- NOTE | 2024-05-14 14:23 | A.OFFVIS_ITS ---
Intake Intake Visit Reasons: 60 min-conf Security And Compliance Project Manager Required: No Accompanied by: Self / Same As Patient Allergies No Known Allergies [No Known Allergies*] Allergy (Verified 04/16/24 14:36) HPI Comprehensive Diabetes Asmnt Most Recent Diabetes Results: Microalb/Creat Ratio TNP 01/24/24 Cholesterol 147 mg/dL (<200) 11/03/23 HDL Cholesterol 63 mg/dL (>40) 11/03/23 Triglycerides 62 mg/dL (<150) 11/03/23 Creatinine 0.66 mg/dL (0.5-1.4) 12/06/23 Blood Urea Nitrogen 12 mg/dL (9-16) 12/06/23 Sodium 137 mmol/L (135-145) 12/06/23 Potassium 4.5 mmol/L (3.3-5.1) 12/06/23 Chloride 104 mmol/L (96-108) 12/06/23 Carbon Dioxide 24 mmol/L (22-29) 12/06/23 Calcium 8.9 mg/dL (8.4-10.2) 12/06/23 AST 12 U/L (5-37) 11/03/23 ALT 12 U/L (0-40) 11/03/23 Total Protein 6.5 g/dL (6.5-8.0) 11/03/23 Albumin 3.7 g/dL (3.5-5.0) 11/03/23 [facility] Medical History Diabetic retinopathy Tubular adenoma of colon Personal history of nicotine dependence CAD (coronary artery disease) Essential hypertension Multinodular thyroid Heart murmur Vitamin D deficiency T2DM (type 2 diabetes mellitus) 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 Maternal Grandmother Unknown family medical history Social History Housing: House Alcohol intake: never Patient Tobacco Use Status: Current everyday Tobacco user Tobacco use type: Cigarette Cigarette Packs Per Day: 1 Cigarettes Per Day: 20.0 Years Smoked: (current smoker - onset 13yo, 1ppd x 43yrs, 40pyh) e-Cigarette/Vaping Use: Never Used Second Hand Smoke Exposure: No service: No Current occupational status: disabled Current occupational exposures/hazards: No Cognitive needs: No Hearing needs: No Vision needs: No Assessment & Plan Assessment & Plan (1) T2DM (type 2 diabetes mellitus): Code(s): E11.9 - Type 2 diabetes mellitus without complications Qualifiers: Diabetes mellitus marine oil terminal superintendent insulin use: with marine oil terminal superintendent use Diabetes mellitus complication status: with hyperglycemia Qualified Code(s): E11.65 - Type 2 diabetes mellitus with hyperglycemia; Z79.4 - terminal gauger supervisor (current) use of insulin Plan: Diabetes self-management education and support participation record Assessment/scale: 1= needs instructed? 2= needs review? 3= comprehend keep point? 4= demonstrates understanding/ competent? NC= Not Covered Topics Learning Objective: Initial visit Initial or post srvc Initial or post srvc Initial or post srvc Initial or post srvc Initial or post srvc Post srvc Comments Pre Edu-assessment/plan Outcome or reassess Outcome or reassess Outcome or reassess Outcome or reassess Outcome or reassess Outcome or reassess Diabetes pathophysiology 1 3 Healthy eating 1 2 3 Being active 1 3 Taking medication 2 3 Monitoring glucose 2 3 Acute complication 1 3 Chronic complicated 1 3 Lifestyle and healthy coping 2 3 Diabetes distress in support 2 3 ?Diabetes pathophysiology: ?Defined diabetes med identify own type of diabetes; list 3 options for treating diabetes Healthy eating: ?Described effect of type, amount and ?timing of food on blood glucose; list 3 methods for planning meal Being active: ?State effect of exercise on blood glucose level Taking medication: ?State effect of diabetes medications on diabetes; name diabetes medications taking, action and side effects Monitoring glucose: ?Identify recommended blood glucose targets and personal target Acute complication: ?List symptoms and treatment of hyper and hypoglycemia, DKA, sick day guidelines and guidelines for severe weather or situations of crisis and diabetes supply manage Chronic complication: ?To find the relationship of blood glucose levels to long- term complications of diabetes in screening and preventative measures Lifestyle and healthy coping: ?Described lifestyle and healthy coping strategies to rule out diabetes self-management Diabetes to stress and support: ?Recognize Diabetes to stress and be able to identified support options Learning objectives: Learning objectives: The patient was provided with verbal and written education on the following topics as outlined below. The patient met all learning objectives and was able to verbalize understanding and provide teach back of education topics discussed . The patient was provided with the opportunity to ask questions and all questions were answered. Patient Assessment Assess patient education level/literacy/barriers Patient questions/concerns, patient average glucose for the past 7 days 209 mg/dL Patient above target 53% Patient at target 47% Patient below target 0% Patient reports he has resumed drinking high carbohydrate beverages He also is eating high carbohydrate breakfast, consisting of 3 cups coffee with half and half, 3 packets of Quakers maple brown sugar oatmeal, eggs and sausage Reviewed with patient has significant spike glucose in the a.m. Patient is now taking Tresiba 12 units daily And has started Fiasp 4 units before breakfast, 6 units before supper Insulin/Injectables (If applicable) * Storage/care of insulin * Injection sites * Site rotation * Onset, peak, duration * Drawing up insulin * Injecting insulin/other injectables * Sharps disposal Continuous blood glucose monitoring (if applicable) Hypoglycemia and Hyperglycemia * Signs and symptoms * Causes * Treatment * Preventing hypoglycemia * When to seek medical attention Smart Goal Patient will reduce high carbohydrate beverages Pt met goal:Pt All of the time/25%: New Goal:? Patient will continue to try reducing high carbohydrate beverages Letter of completion sent to referring provider Patient Instructions: Insulin Plan: Trasiba 12 units daily Fiasp 6 units 5 minutes before meals DIABETES PROBLEMS HOMECARE INSTRUCTIONS Hypo instructions ? When first signs of insulin reaction occur, immediately drink orange juice or cola, or suck on a sugar cube, but only if the person is conscious. ? Person with diabetes should continue taking insulin when ill, unless he/she is not able to eat.? Regularly check blood sugar or urine for sugar and acetone during illness. ? Exercise regularly. ? Pay special attention to the feet.? Avoid cuts, sores, blisters, ill- fitting shoes, or going barefoot.? Promptly treat injuries to the feet. ? Take medications as directed by physician. ? Drink extra water or noncaffeinated, nonsugared drinks to prevented hydration. Signs and symptoms of low blood sugar (happen quickly) Each person's reaction to low blood sugar is different. Learn your own signs and symptoms of when your blood sugar is low. Taking time to write these symptoms down may help you learn your own symptoms of when your blood sugar is low. From milder, more common indicators to most severe, signs and symptoms of low blood sugar include: Feeling shaky Being nervous or anxious Sweating, chills and clamminess Irritability or impatience Confusion Fast heartbeat Feeling lightheaded or dizzy Hunger Nausea Color draining from the skin (pallor) Feeling Sleepy Feeling weak or having no energy Blurred/impaired vision Tingling or numbness in the lips, tongue, or cheeks Headaches Coordination problems, clumsiness Hypoglycemia or blood glucose under 70 use the rule of 15's: If you have your blood glucose meter test your blood glucose, if you do not have your meter still follow below instruction: Keep quick-sugar foods with you at all times.? Take 15 grams of fast acting carbohydrates. Examples are 4 ounces of fruit juice or regular soda pop, 8 ounces fat-free milk, 1 tablespoon of table sugar, honey or corn syrup, jam, one miniature box of raisins, 7-8 gumdrops or Life Savers candy, 4 glucose tablets, and glucose gel.? Retest blood glucose in 15 minutes, if blood glucose is still under 80, repeat rule of 15's. If blood glucose is under 50, take 30 grams of fast acting carbohydrates If you are having hypoglycemia, or insulin reaction, more that a few times a week, call MD or energy assistant F/U BG check F/U with nurse Coding Level of Care Code Est Pt Level 1 (97390) Diagnoses Type 2 diabetes mellitus with hyperglycemia, with long-term current use of insulin E11.65; Z79.4 Diabetes mellitus marine oil terminal superintendent insulin use: with senior care use Diabetes mellitus complication status: with hyperglycemia
== END 2024-05-14 14:36 | disposition home or self-care (01) ==
PROVIDERS: PCP Nurse Practitioner Family; Visit Provider Registered Nurse Diabetes Educator
DX: E11.65 Type 2 diabetes mellitus with hyperglycemia (principal); Z79.4 Long term (current) use of insulin

== ENCOUNTER → 2024-05-14 13:53 | Outpatient (BNVA) | payer MEDICARE, MEDICAID, SELFPAY | PROVIDERS: PCP Nurse Practitioner Family; Visit Provider Registered Nurse Diabetes Educator | DX: E11.65 Type 2 diabetes mellitus with hyperglycemia (principal); Z79.4 Long term (current) use of insulin | CPT/HCPCS: 99211 ==

== ENCOUNTER 2024-07-19 14:27 | Outpatient (AMB) | payer MEDICARE, MEDICAID, SELFPAY ==
--- NOTE | 2024-07-19 14:28 | A.OFFVIS_ITS ---
Vital Signs 07/19/24 14:31 Height 5 ft 8 in Weight 209 lb 7.026 oz BMI 31.8 BP 124/68 Blood Pressure Location Rt brachial Position Sitting Pulse 69 Pulse Source Pulse Oximeter Intake Visit Reasons: DM/Confirmed Intake Note: Patient presents today for a follow-up on Type 2 Diabetes Mellitus: Last Diabetic eye exam was on: DUE Last Podiatry exam was on: Does not see a Grinder Set Up Operator Thread Tool Most recent HbA1c: 12.1%, 07/19/2024 Random Glucose- 386 mg/dL, Today Potato Sorter Required: No Accompanied by: Self / Same As Patient Allergies No Known Allergies [No Known Allergies*] Allergy (Verified 07/19/24 14:29) Medication List - Last Reconciled 07/19/24 by Shawna Velasquez PA-C aspirin (Adult Low Dose Aspirin) 81 mg PO DAILY atorvastatin 80 mg PO BEDTIME blood sugar diagnostic (FreeStyle Lite Strips) 3times a day blood-glucose meter (FreeStyle Lite Meter kit) As directed buspirone 5 mg PO BID divalproex ER 500 mg PO BID empagliflozin (Jardiance) 25 mg PO QAM gabapentin 800 mg PO TID 30 days glucose (Dex4 Glucose) 16 grams (4 x 4 gram) PO Q15M PRN insulin aspart (niacinamide) 100 unit/mL (3 mL) (Fiasp FlexTouch U-100 Insulin) inject 6 units with breakfast and inject 4 units subcutaneously with supper 30 days insulin degludec (Tresiba FlexTouch U-100 insulin) 20 units subcut DAILY lisinopril 2.5 mg PO DAILY 90 days lithium carbonate 300 mg PO DAILY lithium carbonate 600 mg PO BEDTIME metformin 1,000 mg PO BID 90 days metoprolol tartrate 50 mg PO BID pen needle, diabetic (BD Margot 2nd Gen Pen Needle) USE TO INJECT INSULIN DAILY DIRECTED pioglitazone 30 mg PO DAILY quetiapine 400 mg PO BEDTIME semaglutide (Ozempic) 2 mg (0.75 mL) subcut QWEEK HPI HPI DM/Confirmed: Details: Patient is a 58-year-old male with a significant past medical CAD, hyperlipidemia, type 2 diabetes, Graves disease, vitamin-D deficiency, hypertension presenting today for a diabetic follow-up. He follows with Dr. Kate for his Graves disease. DM-last A1c was 9.4 and today it is 12.1. He is currently on Tresiba 12 units, metformin 1000 mg twice a day, fiasp 6 units BID (has not been taking this), Actos 30 mg daily, Jardiance 25 mg and Ozempic 2 mg weekly (inconsistent with this). CGM[employer] 3 download shows usage 94%, average glucose 325, G mi 11.1%. The very hyperglycemic 76%, hyperglycemic 12 %, in range 12 %, 0 hypoglycemic events He states that he knows that his jia-xe-vscjgud blood sugars are his own fault due to noncompliance with medication and poor diet. He states that he has been eating a lot of sugary foods and drinking thinks that he should not be drinking. Hypoglycemia- rare, corrects with candy/juice or tabs Hyperglycemia- throughout the day, worse with meal time. He skips lunch usually and just drinks a coke and smokes a cigarette. CV: Blood pressure today in the office is 124/68. 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 Maternal Grandmother Unknown family medical history Social History Housing: House Alcohol intake: never Patient Tobacco Use Status: Current everyday Tobacco user Tobacco use type: Cigarette Cigarette Packs Per Day: 1 Cigarettes Per Day: 20.0 Years Smoked: (current smoker - onset 13yo, 1ppd x 43yrs, 40pyh) e-Cigarette/Vaping Use: Never Used Second Hand Smoke Exposure: No service: No Current occupational status: disabled Current occupational exposures/hazards: No Cognitive needs: No Hearing needs: No Vision needs: No Physical Exam Vital Signs: Last Vital Signs Pulse 69 07/19/24 14:31 BP 124/68 07/19/24 14:31 BMI result Body Mass Index 31.8 Const Orientation/consciousness: patient oriented x3 HEENT Ears: hearing grossly normal bilaterally Neck Thyroid: Thyroid normal Lymphatic: no lymphadenopathy noted Resp Auscultation: clear to auscultation bilaterally Cardio Rate: regular rate Rhythm: regular rhythm Heart sounds: S1 normal heart sound present and S2 normal heart sound present Skin General skin exam: no rashes or lesions noted Neuro General: patient oriented x3, gait normal and no focal motor deficits Results AMB Hemoglobin A1c AMB Hemoglobin A1c 12.1 % Last Edit by JACQUIE Lara on 07/19/24 14:5 5 Results Reviewed Results Reviewed: Laboratory Last Values Glucose (Clinic) 386 mg/dL (60-115) H* 07/19/24 14:35 Assessment & Plan Assessment & Plan (1) Diabetic polyneuropathy associated with type 2 diabetes mellitus: Code(s): E11.42 - Type 2 diabetes mellitus with diabetic polyneuropathy Category: Medical Plan: increase tresiba to 20 units advised to take the fiasp as directed advised to take ozempic as directed discussed the importance of compliance continue actos and metformin Recommended short term follow up however he wants to wait a couple of weeks. Tells me that he will increase his compliance. We did review risks of complications. He we will call me if anything changes. Patient understands and agrees with the plan. (2) Essential hypertension: Code(s): I10 - Essential (primary) hypertension Category: Medical Plan: continue current plan (3) Hyperlipidemia: Code(s): E78.5 - Hyperlipidemia, unspecified Category: Medical Qualifiers: Hyperlipidemia type: unspecified Qualified Code(s): E78.5 - Hyperlipidemia, unspecified Plan: Continue current regimen Orders: Orders AMB Hemoglobin A1c Today E11.42 - Type 2 diabetes mellitus with diabetic polyneuropathy Medications: Changed From semaglutide (Ozempic) 2 mg (0.75 mL) subcut QWEEK 3 mL 4RF To semaglutide (Ozempic) 2 mg (0.75 mL) subcut QWEEK 90 days 9.75 mL 4RF From insulin degludec (Tresiba FlexTouch U-100 insulin) 20 units subcut DAILY To insulin degludec (Tresiba FlexTouch U-100 insulin) 20 units (0.2 mL) subcut DAILY 90 days 20 mL 3RF Coding Level of Care Code Est Pt Level 4 (90488) Complex EM visit Add On G2211 Diagnoses Diabetic polyneuropathy associated with type 2 diabetes mellitus E11.42 Essential hypertension I10 Hyperlipidemia, unspecified hyperlipidemia type E78.5 Hyperlipidemia type: unspecified
--- OUTSIDE RECORDS SUMMARY | 2024-07-19 14:30 | XMS_ITS ---
Author Organization [facility] Address [address] [place] [address] Care Team Providers Care Boom Stick Man Name Role Phone SJ BREWSTER Primary Care Provider Reyes Paredes [phone] REASON FOR VISIT screening,hx polyps PROBLEMS Problem Type ICD Code Onset Dates Problem Status W/U Status Risk SNOMED Code Notes Problem History of colon polyps (Z86.010) Active confirmed History of polyp of colon ([id number]) Encounters Encounter Location Date Provider Diagnosis [facility] [address] [place] [id number] 04/03/2023 Reyes Avery Colon cancer scree arsh Z12.11 and History of colon polyps Z86.010 ASSESSMENTS Encounter Date Diagnosis Assessment Notes Treatment Notes Treatment Clinical Notes 04/03/2023 Colon cancer screening (ICD-10 - Z12.11) 04/03/2023 History of colon polyps (ICD-10 - Z86.010) PLAN OF TREATMENT No Information
--- OUTSIDE RECORDS SUMMARY | 2024-07-19 14:30 | XMS_ITS | Patient Health Record ---
Author Organization [facility] Address [address] [place] [id number] Care Team Providers Care Residential Aide Name Role Phone SJ BREWSTER Primary Care Provider Reyes Paredes Unavailable [phone] ALLERGIES No Known Allergies REASON FOR REFERRAL No Information MEDICATIONS Medication SIG (Take, Route, Frequency, Duration) Notes Start Date End Date Status Vitamin D3 125 MCG (5000 UT) as directed Orally Active Iron 65 MG 1 tablet Orally Once a day for 30 day(s) Active Vitamin C 1000 MG 1 tablet Orally Once a day for 30 day(s) Active Vitamin E 200 UNIT 1 tablet Orally Once a day for 30 day(s) Active Multi Vitamin Mens - 1 tablet Orally Onc e a day for 30 day(s) Active Vitamin D 2000 UNIT 1 capsule Orally Onc e a day Active Pioglitazone HCl 45 MG 1 tablet Orally O nce a day for 30 day(s) Active methIMAzole 5 MG 1 tablet with food O rally Once a day for 30 day(s) Active Lisinopril 2.5 MG 1 tablet Orally Once a day for 30 day(s) Active busPIRone HCl 5 MG 1 tablet Orally Twic e a day Active Vitamin B12 500 MCG 1 tablet Orally Once a day for 30 day(s) Active CoQ-10 100 MG 1 capsule with a shahzad l Orally Once a day for 30 day(s) Active QUEtiapine Fumarate 300 MG 1 tablet at b edtime Orally at bedtime Active metFORMIN HCl 1000 MG 1 tablet with meal s Orally Twice a day Active Metoprolol Tartrate 50 MG 1 tablet Orall y Twice a day Active Aspirin 81 MG 1 tablet Orally Once a day Active Pravastatin Sodium 80 MG 1 tablet Orally Once a day for 30 day(s) 01/01/2020 Active busPIRone HCl 5 MG 1 tablet Orally Twic e a day Active Gabapentin 800 MG 1 tablet Orally 1 ta blet 3 times qd Active Pioglitazone HCl 45 MG 1 tablet Orally O nce a day Active Jardiance 25 MG 1 tablet Orally Once a day for 30 day(s) Active Fish Oil 1200 MG 1 capsule Orally Onc e a day for 30 day(s) Active Divalproex Sodium 500 MG 1 tablet Orally Twice a day for 30 day(s) Active [place] Carbonate 600 MG 1 capsule at be dtime Orally Once a day for 30 day(s) Active [employer] [place] Carbonate 300 MG 1 capsule at be dtime Orally one in the morning Active Depakote Orally Active IMMUNIZATIONS Vaccine Route Administration Date Status Comme nts Flu vaccine no Preserv 3 and > Unknown 06/18/2014 Admin istered Influenza Unknown 08/08/2019 Administered Influenza Unknown 01/11/2023 Refused SOCIAL HISTORY Tobacco Use: Social History Observation Description Date Details (start date - stop date) Current Smoker NA - NA Sex Assigned At : Social History Observation Description Sex Assigned At Unknown Tobacco Use/Smoking Question Answer Notes Patient is a current smoker When did you start smoking? age 39 How often do you smoke cigarettes? every day How many cigarettes a day do you smoke? 11-20 How soon after you wake up d o you smoke your first cigarette? within 5 minutes Are you interested in quitting? Thinking about q uitting Alcohol Screen Question Answer Notes Did you have a drink containing alcohol in the p ast year? Yes Points 0 Interpretation Negative PROBLEMS Problem Type ICD Code Onset Dates Problem Status W/U Status Risk SNOMED Code Notes Problem Encounter for screening for malignant neoplasm of colon (Z12.11) Active confirmed 512624513 Problem History of adenomatous polyp of colon (Z86.010) Active confirmed 659398214 Problem History of colon polyps (Z86.010) Active confirmed History of poly p of colon (906864805) Problem Long-term use of aspirin therapy (Z79.82) Active confirmed 236947646 Problem Pre-procedural examination (Z01.818) Active confirmed [id number] PLAN OF TREATMENT Future Test Test Name Order Date COLONOSCOPY 09/30/2014 COLONOSCOPY 01/01/2020 COLONOSCOPY 01/11/2023 Insurance Providers Payer Name Payer Address Payer Phone Subscriber Number Group Number Insured Name Patient Relationship to Insured Coverage Start Date Coverage End Date MEDICARE OF [place] [address] [place] [address] [id number] ERICA HARMON Self - patient is the insured MEDICAID OF [facility] [employer] [address] [place] [phone] [id number] ERICA HARMON Self - patient is the insured MEDICAL (GENERAL) HISTORY Medical History History ICD Code NIDDM Hypertension Denies MD,CVA,Lung disease,renal disease Hyperlipidemia Takes Seroquel for sleep and Buspar for anxiety Bipolar disease/Anxiety Screening Colonoscopy in 12/2014 with rem ovl of a small tubular adenoma Colonoscopy 01/2020 was negative, but pre p was limited Coronary artery disease-CT s can with some califications in the coronary arteries-sees Dr. Knott Surgical History Surgery Date(Month/Year) Cataracts
[2024-07-19 14:31] VITALS: BP 124/68; PULSE 69; BMI 31.8
[2024-07-19 14:39] LABS: Glucose, Whole Blood 386 mg/dL (60-115)
== END 2024-07-19 14:55 | disposition home or self-care (01) ==
PROVIDERS: PCP Nurse Practitioner Family; Visit Provider Physician Assistant
DX: E11.42 Type 2 diabetes mellitus with diabetic polyneuropathy (principal); I10 Essential (primary) hypertension; E78.5 Hyperlipidemia, unspecified

== ENCOUNTER → 2024-07-19 14:27 | Outpatient (BNVA) | payer MEDICARE, MEDICAID, SELFPAY | PROVIDERS: PCP Nurse Practitioner Family; Visit Provider Physician Assistant | DX: E11.42 Type 2 diabetes mellitus with diabetic polyneuropathy (principal); I10 Essential (primary) hypertension; E78.5 Hyperlipidemia, unspecified | CPT/HCPCS: 82947; 83036; 99212 ==

== ENCOUNTER 2024-08-01 07:57 | Outpatient (AMB) | payer MEDICARE, MEDICAID, SELFPAY ==
--- NOTE | 2024-08-01 07:58 | MHC.OFFVIS ---
Vital Signs 08/01/24 07:59 Height 5 ft 8 in Weight 208 lb 5.389 oz BMI 31.7 BP 134/86 Blood Pressure Location Lt brachial Position Sitting Pulse 55 Pulse Source Pulse Oximeter Intake Visit Reasons: thyroid nodules Intake Note: Patient present today for thyroid nodules office visit. 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 Required: No Accompanied by: Self / Same As Patient Allergies No Known Allergies [No Known Allergies*] Allergy (Verified 07/19/24 14:29) Medication List - Last Reconciled 08/01/24 by Samantha Sanchez MD aspirin (Adult Low Dose Aspirin) 81 mg PO DAILY atorvastatin 80 mg PO BEDTIME blood sugar diagnostic (FreeStyle Lite Strips) 3times a day blood-glucose meter (FreeStyle Lite Meter kit) As directed buspirone 5 mg PO BID divalproex ER 500 mg PO BID empagliflozin (Jardiance) 25 mg PO QAM gabapentin 800 mg PO TID 30 days glucose (Dex4 Glucose) 16 grams (4 x 4 gram) PO Q15M PRN insulin aspart (niacinamide) 100 unit/mL (3 mL) (Fiasp FlexTouch U-100 Insulin) inject 6 units with breakfast and inject 4 units subcutaneously with supper 30 days insulin degludec (Tresiba FlexTouch U-100 insulin) 20 units (0.2 mL) subcut DAILY 90 days lisinopril 2.5 mg PO DAILY 90 days lithium carbonate 300 mg PO DAILY lithium carbonate 600 mg PO BEDTIME metformin 1,000 mg PO BID 90 days metoprolol tartrate 50 mg PO BID pen needle, diabetic (BD Margot 2nd Gen Pen Needle) USE TO INJECT INSULIN DAILY DIRECTED pioglitazone 30 mg PO DAILY quetiapine 400 mg PO BEDTIME semaglutide (Ozempic) 2 mg (0.75 mL) subcut QWEEK 90 days HPI Comments Details: 59-year-old male coming in today for follow up of multinodular goiter as well as with a history of Graves disease. in remission He also follows in our practice with [facility] for type 2 diabetes mellitus, last visit 07/19/2024. Grave's Disease in remission Multinodular goiter Has a history of Grave's disease diagnosed in 2014. He did not undergo a thorough workup at that time. He had positive TSI and TPO antibodies. Thyroid uptake and scan revealed mildly increased uptake at 24 hours at 30.2%. No pattern was given. This was completed in 2014. After our initial consultation we stopped his Methimazole, and labs were repeated 2 weeks later. He was able to maintain euthyroidism indicating likely remission. Antibodies were reassessed with negative TSI and TRAB antibodies. TPO and TG antibodies were positive. He did have an US completed 2021 which revealed multiple nodules bilaterally. He underwent FNA biopsy 03/17/2022 of his RMP 1.5 cm thyroid nodule and his LUP 1.3 cm thyroid nodule. Results as follows: RMP 1.5 cm thyroid nodule - atypia of undetermined significance (bethesda category III), affirma benign LUP 1.3 cm thyroid nodule - atypia of undetermined significance (bethesda category III), affirma benign Last thyroid ultrasound from February 2023 showed stable size of the nodules. He has Grave's ophthalmopathy. Sees eye doctor regularly , last visit was last year, denies pain on eye movements , any dryness, no blurry vision, no redness Denies compressive symptoms. No symptoms of hypo or hyperthyrodiism. Physical exam General: sitting comfortably in no acute distress HEENT: normocephalic/atraumatic, moist oral mucosa Neck: supple, palpable 1 cm left sided nodule , , no dorsocervical or supraclavicular fat pads Cardiac: normal heart sounds Pulm: normal breath sounds B/L, no added breath sounds Abd: not distended, no tenderness Extremities: no edema, no signs of myxedema Laboratory Tests 06/22/18 06/28/19 09/01/21 12:31 11:47 10:11 Thyroid Stim Immunoglob <89 <89 <89 TSH Thyroglobulin Antibody 9 H Thyroid Peroxidase Ab 38 H TSH Receptor Ab <1.00 11/03/22 11/03/23 07:56 08:51 Thyroid Stim Immunoglob TSH 0.87 0.84 Thyroglobulin Antibody Thyroid Peroxidase Ab TSH Receptor Ab US Thyroid: 08/27/2021 FINDINGS: ? SIZE: Measurements of the thyroid lobes and nodules are given in sagittal, anteroposterior and transverse dimensions respectively. Right Thyroid Lobe: 6.83 x 3.19 x 2.74 cm, volume 31.2 mL. Parenchyma: The gland echotexture is homogeneous. Thyroid vascularity is normal. Left Thyroid Lobe: 6.69 x 3.18 x 3.22 cm, volume 35.9 mL. Parenchyma: The gland echotexture is heterogeneous. Thyroid vascularity is increased. Isthmus: 1.08 cm in maximum AP dimension. There are multiple thyroid nodules. The largest nodules are measured. Estimated total number of nodules greater than or equal to 1 cm: 2. Continuous Churn Buttermaker nodules are described as follows: 1. Location: Right mid. ?? ? Size: 0.62 x 0.55 x 0.71 cm, volume 0.13 mL. ?? ? Nodule characteristics: ?? ? Composition: Solid (2). ?? ? Echogenicity: Hypoechoic (2). ?? ? Shape: Not taller than wide (0). ?? ? Margins: Smooth (0). ?? ? Echogenic Foci: None (0). ?? ? ACR TI-RADS total points: 4 ?? ? ACR TI-RADS category: 4 2. Location: Right mid. ?? ? Size: 1.5 x 0.90 x 1.4 cm, volume 0.93 mL. ?? ? Nodule characteristics: ?? ? Composition: Solid (2). ?? ? Echogenicity: Isoechoic (1). ?? ? Shape: Not taller than wide (0). ?? ? Margins: Smooth (0). ?? ? Echogenic Foci: None (0). ?? ? ACR TI-RADS total points: 3 ?? ? ACR TI-RADS category: 3 3. Location: Left superior. ?? ? Size: 1.3 x 0.90 x 1.2 cm, volume 0.80 mL. ?? ? Nodule characteristics: ?? ? Composition: Solid/almost completely solid (2). ?? ? Echogenicity: Isoechoic (1). ?? ? Shape: Not taller than wide (0). ?? ? Margins: Smooth (0). ?? ? Echogenic Foci: Punctate echogenic foci (3). ?? ? ACR TI-RADS total points: 6 ?? ? ACR TI-RADS category: 4 4. Location: Left superior. ?? ? Size: 0.60 x 0.42 x 0.52 cm, volume 0.07 mL. ?? ? Nodule characteristics: ?? ? Composition: Spongiform (0). ?? ? Echogenicity: Anechoic (0). ?? ? Shape: Not taller than wide (0). ?? ? Margins: Smooth (0). ?? ? Echogenic Foci: None (0). ?? ? ACR TI-RADS total points: 0 ?? ? ACR TI-RADS category: 1 5.? Location: Left mid. ?? ? Size: 0.60 x 0.55 x 0.60 cm, volume 0.09 mL. ?? ? Nodule characteristics: ?? ? Composition: Cystic(0). ?? ? ACR TI-RADS total points: 0 ?? ? ACR TI-RADS category: 1 NODES: No lymphadenopathy is seen in the tissue surrounding the thyroid gland. US THYROID 02/06/23 CLINICAL INFORMATION: Graves' disease. Prior biopsies March 2022 Right thyroid mid-benign Left thyroid mid benign COMPARISON: Ultrasound thyroid 08/27/2021. TECHNIQUE: Linear transducer grayscale and color Doppler examination with attention to the region of the thyroid. FINDINGS: SIZE: There are multiple thyroid nodules. The largest nodules are measured. Measurements of the thyroid lobes and nodules are given in sagittal, anteroposterior and transverse dimensions respectively. Right Thyroid Lobe: 7.1 x 2.9 x 3.2 cm, volume 33.3 mL. Previously 6.8 x 3.2 x 2.7 cm, volume 31.2 mL. Parenchyma: The gland echotexture is heterogeneous. Thyroid vascularity is increased. Left Thyroid Lobe: 7.2 x 2.9 x 2.5 cm, volume 27.4 mL. Previously 6.7 x 3.2 x 3.2 cm, volume 35.9 mL. Parenchyma: The gland echotexture is heterogeneous. Thyroid vascularity is increased. Isthmus: 0.93 cm in maximum AP dimension. Previously 1.08 cm. Estimated total number of nodules greater than or equal to 1 cm: 2. Continuous Churn Buttermaker nodules are described as follows: 1. Location: Right upper. Size: 0.75 x 0.51 x 0.64 cm, volume 0.13 mL. Previously: 0.62 x 0.55 x 0.71 cm, volume 0.13 mL. Nodule characteristics: Composition: Solid (2). Echogenicity: Hypoechoic (2). Shape: Not taller than wide (0). Margins: Smooth (0). Echogenic Foci: None (0). ACR TI-RADS total points: 4 Previous: 4 ACR TI-RADS category: 4 Previous: 4 Significant change in size (>/= 20% in 2 dimensions and minimal increase of 2 mm or 50% or greater increase in volume): No Change in features: No Change in ACR TI-RADS risk category: No 2. Location: Right mid. Previously biopsied. Size: 1.5 x 0.64 x 1.3 cm, volume 0.64 mL. Previously: 1.5 x 0.90 x 1.4 cm, volume 0.93 mL. Nodule characteristics: Composition: Solid (2). Echogenicity: Hypoechoic (2). Shape: Not taller than wide (0). Margins: Smooth (0). Echogenic Foci: None (0). ACR TI-RADS total points: 4 Previous: 3 ACR TI-RADS category: 4 Previous: 3 Significant change in size (>/= 20% in 2 dimensions and minimal increase of 2 mm or 50% or greater increase in volume): No Change in features: No Change in ACR TI-RADS risk category: No 3. Location: Left mid. Size: 0.67 x 0.50 x 0.5 to cm, volume 0.09 mL. Previously: 0.60 x 0.55 x 0.55 cm, volume 0.09 mL. Nodule characteristics: Composition: Cystic(0). ACR TI-RADS total points: 0 Previous: 0 ACR TI-RADS category: 1 Previous: 1 Significant change in size (>/= 20% in 2 dimensions and minimal increase of 2 mm or 50% or greater increase in volume): No Change in features: No Change in ACR TI-RADS risk category: No 4. Location: Left upper. Size: 0.84 x 0.60 x 0.90 cm, volume 0.23 mL. Previously: 0.59 x 0.42 x 0.52 cm, volume 0.07 mL. Nodule characteristics: Composition: Mixed cystic and solid (1). Echogenicity: Isoechoic (1). Shape: Not taller than wide (0). Margins: Smooth (0). Echogenic Foci: Punctate echogenic foci (3). ACR TI-RADS total points: 5 Previous: 0 ACR TI-RADS category: 4 Previous: 1 Significant change in size (>/= 20% in 2 dimensions and minimal increase of 2 mm or 50% or greater increase in volume): Yes Change in features: No Change in ACR TI-RADS risk category: Yes 5. Location: Left mid. This was previously biopsied. Size: 1.2 x 0.78 x 1.1 cm, volume 0.52 mL. Previously: 1.3 x 0.87 x 1.2 cm, volume 0.75 mL. Nodule characteristics: Composition: Solid/almost completely solid (2). Echogenicity: Isoechoic (1). Shape: Not taller than wide (0). Margins: Smooth (0). Echogenic Foci: Punctate echogenic foci (3). ACR TI-RADS total points: 6 Previous: 6 ACR TI-RADS category: 4 Previous: 4 Significant change in size (>/= 20% in 2 dimensions and minimal increase of 2 mm or 50% or greater increase in volume): No Change in features: No Change in ACR TI-RADS risk category: No NODES: No lymphadenopathy is seen in the tissue surrounding the thyroid gland. US/US thyroid IMPRESSION: Enlarged heterogeneous hypervascular thyroid gland. Multiple bilateral thyroid nodules. Prior benign FNA of the nodules in the right and left mid lobe was performed. Continued annual sonographic surveillance is recommended. 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 Maternal Grandmother Unknown family medical history Social History Housing: House Alcohol intake: never Patient Tobacco Use Status: Current everyday Tobacco user Tobacco use type: Cigarette Cigarette Packs Per Day: 1 Cigarettes Per Day: 20.0 Years Smoked: (current smoker - onset 13yo, 1ppd x 43yrs, 40pyh) e-Cigarette/Vaping Use: Never Used Second Hand Smoke Exposure: No service: No Current occupational status: disabled Current occupational exposures/hazards: No Cognitive needs: No Hearing needs: No Vision needs: No Physical Exam Vital Signs: Last Vital Signs Pulse 55 08/01/24 07:59 BP 134/86 08/01/24 07:59 BMI result Body Mass Index 31.7 Assessment & Plan Assessment & Plan (1) Graves' disease with exophthalmos: Code(s): E05.00 - Thyrotoxicosis with diffuse goiter without thyrotoxic crisis or storm Category: Medical Plan: 59-year-old male past medical history significant for Graves disease now in remission and off methimazole. Last TSH from October 2023 was within normal limits. He does not have any symptoms of hypo or hyperthyroidism today. Plan: -ordered TSH, free T4 (2) Multinodular thyroid: Code(s): E04.2 - Nontoxic multinodular goiter Category: Medical Plan: 59-year-old male with a history of Graves disease plus multinodular goiter. Multinodular goiter was diagnosed in 2021, he underwent biopsies of his right mid 1.5 cm in left superior 1.3 cm dominant nodules in 2021 which came back as AUS [place] category 3, with benign Afirma results. He has been followed with surveillance ultrasounds. Last thyroid ultrasound February 2023 showed stable size of the nodules. Plan: -ordered thyroid ultrasound -we will communicate the results of the thyroid ultrasound with them, if stable in size I plan to see him back in 1 year, if there is a significant change in size I will schedule him for a sooner follow up. Plan See above Orders: Orders Free T4 (Free Thyroxine) Today E04.2 - Nontoxic multinodular goiter, E05.00 - Thyrotoxicosis with diffuse goiter without thyrotoxic crisis or storm Thyroid Stimulating Hormone Today E04.2 - Nontoxic multinodular goiter, E05.00 - Thyrotoxicosis with diffuse goiter without thyrotoxic crisis or storm US thyroid Today E04.2 - Nontoxic multinodular goiter Patient Instructions: Do blood work today ,we will call with results Do thyroid ultrasound, someone will call you to schedule this Coding Level of Care Code Est Pt Level 3 (26020) Diagnoses Graves' disease with exophthalmos E05.00 Multinodular thyroid E04.2
[2024-08-01 07:59] VITALS: BP 134/86; PULSE 55; BMI 31.7
--- OUTSIDE RECORDS SUMMARY | 2024-08-01 07:59 | XMS_ITS ---
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 Name Role Phone SJ BREWSTER Primary Care Provider Reyes Paredes [phone] REASON FOR VISIT screening,hx polyps PROBLEMS Problem Type ICD Code Onset Dates Problem Status W/U Status Risk SNOMED Code Notes Problem History of colon polyps (Z86.010) Active confirmed History of polyp of colon (502232650) Encounters Encounter Location Date Provider Diagnosis [facility] [address] [place] [address] [phone] 04/03/2023 Reyes Avery Colon cancer scree arsh Z12.11 and History of colon polyps Z86.010 ASSESSMENTS Encounter Date Diagnosis Assessment Notes Treatment Notes Treatment Clinical Notes 04/03/2023 Colon cancer screening (ICD-10 - Z12.11) 04/03/2023 History of colon polyps (ICD-10 - Z86.010) PLAN OF TREATMENT No Information
--- OUTSIDE RECORDS SUMMARY | 2024-08-01 08:00 | XMS_ITS | Patient Health Record ---
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 Name Role Phone SJ BREWSTER Primary Care Provider Reyes Paredes Unavailable [phone] ALLERGIES No Known Allergies REASON FOR REFERRAL [...] Twice a day for 30 day(s) Active [place] Carbonate 600 MG 1 capsule at be dtime Orally Once a day for 30 day(s) Active [place] Carbonate 300 MG 1 capsule at be [...] malignant neoplasm of colon (Z12.11) Active confirmed 111667604 Problem History of adenomatous polyp of colon (Z86.010) Active confirmed [id number] Problem History of colon polyps (Z86.010) Active confirmed History of poly p of colon (109797309) Problem Long-term use of aspirin therapy (Z79.82) Active confirmed [id number] Problem Pre-procedural examination (Z01.818) Active confirmed [id number] PLAN OF TREATMENT Future Test Test Name Order Date COLONOSCOPY 09/30/2014 COLONOSCOPY 01/01/2020 COLONOSCOPY 01/11/2023 Insurance Providers Payer Name Payer Address Payer Phone Subscriber Number Group Number Insured Name Patient Relationship to Insured Coverage Start Date Coverage End Date MEDICARE OF [place] [address] [place] [address] [id number] ERICA HARMON Self - patient is the insured MEDICAID OF [facility] [place] [employer] [address] [place] [phone] ERICA HARMON Self - patient is the insured MEDICAL (GENERAL) HISTORY Medical History History ICD Code NIDDM Hypertension Denies [place],CVA,Lung disease,renal disease Hyperlipidemia Takes Seroquel for sleep and Buspar for anxiety Bipolar disease/Anxiety Screening Colonoscopy in 12/2014 with rem ovl of a small tubular adenoma Colonoscopy 01/2020 was negative, but pre p was limited Coronary artery disease-CT s can with some califications in the coronary arteries-sees Dr. Knott Surgical History Surgery Date(Month/Year) Cataracts
== END 2024-08-01 08:17 | disposition home or self-care (01) ==
PROVIDERS: PCP Nurse Practitioner Family; Visit Provider Student in an Organized Health Care Education/Training Program
DX: E05.00 Thyrotoxicosis with diffuse goiter without thyrotoxic crisis or storm (principal); E04.2 Nontoxic multinodular goiter
CPT/HCPCS: 99213

== ENCOUNTER 2024-08-01 08:19 | Outpatient (REF) | payer MEDICARE, MEDICAID, SELFPAY ==
[2024-08-01 11:42] LABS: Free T4 (Free Thyroxine) 0.94 ng/dL (0.71-1.85); Thyroid Stimulating Hormone 0.73 uIU/mL (0.32-4.0)
== END 2024-08-01 08:20 | disposition home or self-care (01) ==
LOC: HO.10HDL 08:19
PROVIDERS: Visit Provider Student in an Organized Health Care Education/Training Program
DX: E05.00 Thyrotoxicosis with diffuse goiter without thyrotoxic crisis or storm (principal); E04.2 Nontoxic multinodular goiter
CPT/HCPCS: 36415; 84439; 84443; 99212